=== PATIENT | female | born 1960 | race Caucasian/White ===

== ENCOUNTER 2019-07-06 01:00 | Inpatient (IN) | payer OTHER ==
--- NOTE | 2019-07-06 01:39 | PDOC ---
History of Present Illness - General Chief Complaint: Back Pain Stated Complaint: BACK PAIN Time Seen by Provider: 07/06/19 01:31 Past History - Past Medical History Allergies/Adverse Reactions: Allergies Allergy/AdvReac Type Severity Reaction Status Date / Time No Known Allergies Allergy Verified 07/06/19 01:31 Home Medications: Ambulatory Orders FENTANYL 12mcg PATCH [DURAGESIC 12mcg PATCH -] 1 each TD Q72H 07/06/19 Oxycodone HCl/Acetaminophen [Oxycodone-Acetaminophen 10-325] 1 each PO Q6H PRN 07/06/19 - Suicide/Smoking/Psychosocial Hx Smoking History: Never smoked Information on smoking cessation initiated: No Hx Alcohol Use: No Drug/Substance Use Hx: No *Physical Exam - Vital Signs Last Vital Signs Temp Pulse Resp BP Pulse Ox 98.2 F 90 19 140/78 99 07/06/19 01:00 07/06/19 01:00 07/06/19 01:00 07/06/19 01:00 07/06/19 01:00 ED Treatment Course - LABORATORY CBC & Chemistry Diagram: 07/07/19 08:10 07/07/19 08:10 Medical Decision Making - Medical Decision Making HPI: 58yo F with PMH of chronic lower back pain s/p L4-L5 spinal fusion presenting with L. flank pain. The pain started on Wednesday and worsened acutely about two hours ago. It starts in her R. flank and radiates to her RLQ, down to her groin , and down to her upper leg. and She states it feels "sharp" and is rated >10 out of 10. Endorses nausea and 4-5 episodes of nonbloody bilious emesis. Has never had pain like this before. Denies history of kidney stone. This pain does not feel like her usual back pain. She follows with a pain management physician who prescribes her oxycodone and fentanyl patches. She last took oxycodone around 6pm which did not relieve her pain. Had a cholecystectomy at age 17. Denies urinary symptoms. No fevers, chills, chest pain, or shortness of breath. PCP: Dr. Robert Lebron ROS: Constitutional: no fever, no chills HEENT: no throat pain, no dysphagia Cardiovascular: no chest pain, no palpitations Respiratory: no cough, no shortness of breath Gastrointestinal: +nausea, +vomiting Genitourinary: no dysuria, no hematuria Musculoskeletal: +back pain, no leg pain Skin: no rash, no itching Neurologic: no headache, no weakness PE: General: Awake, alert, and fully oriented, writhing in pain Head: No signs of trauma Eyes: EOMI, sclera anicteric ENT: Dry mucus membranes Neck: Normal ROM, supple Lungs: Lungs clear, Normal breath sounds Cardio: Regular rhythm, S1 and S2 present Abdomen: Soft, tender to palpation in RLQ. No guarding, no rebound, no masses. + L. CVA tenderness, no R. CVA tenderness Extremities: Normal range of motion, Distal pulses present SKIN: Warm, Dry, normal turgor Neurologic: Cranial nerves II through XII grossly intact. Normal speech ED Course/MDM: DDX including but not limited to nephrolithiasis, UTI, pyelonephritis, appendicitis, ovarian cyst Labs, EKG CTAP with IV contrast Toradol, Fluids, Zofran 07/06/19 01:39 CBC WBC 15.0 K/mm3 (4.0-10.0) H 07/06/19 02:50 RBC 4.80 M/mm3 (3.60-5.2) 07/06/19 02:50 Hgb 14.9 GM/dL (10.7-15.3) 07/06/19 02:50 Hct 45.2 % (32.4-45.2) 07/06/19 02:50 MCV 94.2 fl (80-96) 07/06/19 02:50 MCH 31.0 pg (25.7-33.7) 07/06/19 02:50 MCHC 32.9 g/dl (32.0-36.0) 07/06/19 02:50 RDW 13.0 % (11.6-15.6) 07/06/19 02:50 Plt Count 407 K/MM3 (134-434) 07/06/19 02:50 MPV 8.9 fl (7.5-11.1) 07/06/19 02:50 Absolute Neuts (auto) 12.9 K/mm3 (1.5-8.0) H 07/06/19 02:50 Neutrophils % 85.8 % (42.8-82.8) H 07/06/19 02:50 Lymphocytes % 10.8 % (8-40) 07/06/19 02:50 Monocytes % 2.8 % (3.8-10.2) L 07/06/19 02:50 Eosinophils % 0.0 % (0-4.5) 07/06/19 02:50 Basophils % 0.6 % (0-2.0) 07/06/19 02:50 Nucleated RBC % 0 % (0-0) 07/06/19 02:50 Leukocytosis UA with 3+ blood, 2+ ketones, 2+ protein, 3+ glucose, trace LE, 17 WBC, 6.1 epithelials, bacteria 50.5 Pending chemistry 07/06/19 03:56 CMP Sodium 139 mmol/L (136-145) 07/06/19 02:50 Potassium 4.3 mmol/L (3.5-5.1) 07/06/19 02:50 Chloride 99 mmol/L (98-107) 07/06/19 02:50 Carbon Dioxide 26 mmol/L (21-32) 07/06/19 02:50 Anion Gap 14 MMOL/L (8-16) 07/06/19 02:50 BUN 11.2 mg/dL (7-18) 07/06/19 02:50 Creatinine 1.0 mg/dL (0.55-1.3) 07/06/19 02:50 Est GFR (CKD-EPI)AfAm 72.42 07/06/19 02:50 Est GFR (CKD-EPI)NonAf 62.49 07/06/19 02:50 Random Glucose 302 mg/dL (74-106) H* 07/06/19 02:50 Calcium 10.0 mg/dL (8.5-10.1) 07/06/19 02:50 Total Bilirubin 1.9 mg/dL (0.2-1) H 07/06/19 02:50 AST 28 U/L (15-37) 07/06/19 02:50 ALT 41 U/L (13-61) 07/06/19 02:50 Alkaline Phosphatase 97 U/L (45-117) 07/06/19 02:50 Total Protein 8.6 g/dl (6.4-8.2) H 07/06/19 02:50 Albumin 4.2 g/dl (3.4-5.0) 07/06/19 02:50 Electrolytes unremarkable Normal Cr No transaminitis Hyperglycemia: Patient states she used to have diabetes and had taken januvia and metformin in the past. Was taken off these meds six months ago 07/06/19 04:38 CT changed to without contrast to better visualize potential stone: CT with 1.1cm stone, as read by radiology: "1.1 cm stone proximal right ureter causing minimal hydronephrosis. Small nonobstructing stone left kidney Unremarkable pancreas and gallbladder. No bowel obstruction, colitis, free fluid or free air. Normal appendix. Spinal cord stimulator device in right flank, electrode tip in mid thoracic spinal canal. Surgical changes lumbar spine" Stone unlikely to pass on its own. Plan for admission Will cover with rocephin given bacteriuria 07/06/19 05:[address] Fisher who accepted patient for admission under the day team attending physician. They will microblog with the attending's name. 07/06/19 06:06 EKG: rate 76, QTc 445, NSR with sinus arrhythmia *DC/Admit/Observation/Transfer Diagnosis at time of Disposition: Nephrolithiasis - Discharge Dispostion Condition at time of disposition: Guarded Decision to Admit order: Yes - Referrals - Patient Instructions - Post Discharge Activity
[2019-07-06] MEDS ORDERED: SODIUM CHLORIDE 1,000 ML IV STA (02:09)
[2019-07-06] MEDS ORDERED: KETOROLAC TROMETHAMINE 30 MG/1 ML VIAL IVPUSH ONE (02:09)
[2019-07-06] MEDS ORDERED: ONDANSETRON 4 MG/2 ML VIAL IVPUSH ONE (02:09)
--- NOTE | 2019-07-06 02:11 | PDOC ---
Attending Attestation - Resident Resident Name: Yoselyn Javier - ED Attending Attestation I have performed the following: I have examined & evaluated the patient, The case was reviewed & discussed with the resident, I agree w/resident's findings & plan - HPI HPI: 07/06/19 05:17 see resident hpi - Physicial Exam PE: 07/06/19 05:17 agree with resident hpi - Medical Decision Making 07/06/19 05:17 58-year-old female with right flank pain radiating into the right lower quadrant CT scan reveals a 1.1 cm right ureteral stone with mild hydronephrosis Due to stone size, elevated white blood cell count, bacteriuria and history of diabetes patient will be admitted to medical service for pain management IV fluids and further evaluation
[2019-07-06] MEDS ORDERED: KETOROLAC TROMETHAMINE 30 MG/1 ML VIAL ONE (02:29)
[2019-07-06] MEDS ORDERED: ONDANSETRON 4 MG/2 ML VIAL ONE (02:29)
[2019-07-06 03:01] LABS: BASO % 0.6 % (0-2.0); HEMOGLOBIN 14.9 GM/dL (10.7-15.3); MONO % 2.8 % (3.8-10.2)
[2019-07-06 03:14] LABS: INR 1.11 (0.83-1.09); PROTHROMBIN TIME (PATIENT) 13.1 SEC (9.7-13.0)
[2019-07-06 03:17] LABS: HEMATOCRIT 45.2 % (32.4-45.2); LYMPH % 10.8 % (8-40); MCHC 32.9 g/dl (32.0-36.0); MEAN CELL VOLUME 94.2 fl (80-96); MEAN PLT VOLUME 8.9 fl (7.5-11.1); NEUT % 85.8 % (42.8-82.8); PLATELET COUNT 407 K/MM3 (134-434)
[2019-07-06] MEDS ORDERED: morphine CARPU-JECT 4 MG/1 ML DISP.SYRIN IVPUSH ONE (03:29)
[2019-07-06] MEDS ORDERED: morphine SULFATE 4 MG/ML VIAL ONE (03:40)
[2019-07-06 03:42] LABS: EPI CELLS 6.1 /HPF (0-5/HPF); HYALINE CASTS 4 /lpf (0-8); URINE APPEARANCE CLOUDY; URINE BACTERIA 50.5 /hpf (NEGATIVE); URINE BILIRUBIN NEGATIVE (NEGATIVE); URINE COLOR DK YELLOW; URINE GLUCOSE (UA) 3+ (NEGATIVE); URINE KETONE 2+ (NEGATIVE); URINE LEUK ESTERASE TRACE (NEGATIVE); URINE NITRITE NEGATIVE (NEGATIVE); URINE PROTEIN 2+ (NEGATIVE); URINE RBC 119 /hpf (0-4); URINE WBC 17 /hpf (0-5)
[2019-07-06 04:07] LABS: ALBUMIN 4.2 g/dl (3.4-5.0); BILIRUBIN,TOTAL 1.9 mg/dL (0.2-1); BLOOD UREA NITROGEN 11.2 mg/dL (7-18); POTASSIUM 4.3 mmol/L (3.5-5.1); TOT PROT 8.6 g/dl (6.4-8.2)
[2019-07-06] MEDS ORDERED: CEFTRIAXONE 1,000 MG in DEXTROSE 5%-WATER - 50 ML IVPB ONE (05:24)
[2019-07-06] MEDS ORDERED: cefTRIAXone SODIUM 1 GM VIAL ONE (05:48)
--- NOTE | 2019-07-06 08:00 | HP ---
CHIEF COMPLAINT: R Flank pain PCP: Dr. Lebron HISTORY OF PRESENT ILLNESS: 58 y/o F with PMHx of NIDDM, Chronic lumbar spine pain s/p L4-S1 spinal fusion and spine stimulator placement presents with R Flank pain. Patient was in her usual state of health on Wednesday. Wednesday during the day, patient began to experience multiple loose bowel movements without any associated abdominal pain or blood. Wednesday, patient woke with sudden onset R Flank pain accompanied by 3-4 episodes of Billious, non bloody vomiting. She initially thought this pain was due to her chronic back issues however at midnight, she had a sudden increase in pain prompting her to visit the ED. She describes the pain as 10/10 , sharp and stabbing over the R Flank, that waxes and wanes and radiates to her her RLQ and Right groin. She has tried Tylenol and her home dose oxycodone (10/ 325) which provided minimal relief. Her pain has improved with heating pad however. Denies any associated fevers, chills, dysuria, hematuria. This is the 1st time she has felt this intense pain and denies any hx of nephrolithiasis. Since arrival in the ED, patient has vomited twice, Billious and nonbloody. Durring my interview, patient was not feeling nausea. Her Last BM was yesterday consisting of diarrhea which has since resolved. The last meal she tolerated was wednesday evening. ER course was notable for: (1) NS 1L Bolus (2) Toradol, Morphine, Zofran, Ceftriaxone (3) CT A/P Recent Travel: Denies PAST MEDICAL HISTORY: As above PAST SURGICAL HISTORY: CCY, L4-S1 spinal fusion, R Total knee replacement x2, x3 Social History: Smoking: Denies Alcohol: Denies Drugs: Denies Occupation: Disabled Ambulation: Has been prescribed a Cane and walker but uses it PRN Residence: Home with family Family History: Mother with COPD, DM, Hyperthyroidism Father with Heart disease, DM, HLD Paternal FHx with Colon Ca Allergies No Known Allergies Allergy (Verified 07/06/19 01:31) HOME MEDICATIONS: Home Medications Medication Instructions Recorded FENTANYL 12mcg PATCH [DURAGESIC 1 each TD Q72H 07/06/19 12mcg PATCH -] Oxycodone HCl/Acetaminophen 1 each PO Q6H PRN 07/06/19 [Oxycodone-Acetaminophen 10325] REVIEW OF SYSTEMS As per HPI PHYSICAL EXAMINATION Vital Signs - 24 hr 07/06/19 07/06/19 07/06/19 01:00 05:48 06:51 Temperature 98.2 F 98.8 F Pulse Rate 90 Pulse Rate [ 65 Right Radial] Respiratory 19 18 Rate Blood Pressure 140/78 Blood Pressure 104/53 L [Left Arm] O2 Sat by Pulse 99 93 L 93 L Oximetry (%) GENERAL: A&Ox3, NAD HEAD: NCAT EYES: PERRL, EOMI EARS, NOSE, THROAT: Dry mucous membranes. NECK: Supple, No JVD LUNGS: CTAB. No wheezes, No crackles. HEART: Regular rate and rhythm, normal S1 and S2 without murmur ABDOMEN: Obese, Soft, RLQ tender to palpation, not distended, + bowel sounds, no guarding, no rebound MUSCULOSKELETAL: Right CVA tenderness, + Right Lloyds punch BACK: Spinal Stimulator felt at Right Lower lumbar spine EXTREMITIES: 2+ pulses, No peripheral edema. NEUROLOGICAL: Cranial nerves II-XII intact. Normal speech. Gross sensation intact throughout. 5/5 muscle strength throughout. SKIN: Warm, dry Laboratory Results - last 24 hr 07/06/19 07/06/19 07/06/19 02:50 02:50 02:50 WBC 15.0 H RBC 4.80 Hgb 14.9 Hct 45.2 MCV 94.2 MCH 31.0 MCHC 32.9 RDW 13.0 Plt Count 407 MPV 8.9 Absolute Neuts (auto) 12.9 H Neutrophils % 85.8 H Lymphocytes % 10.8 Monocytes % 2.8 L Eosinophils % 0.0 Basophils % 0.6 Nucleated RBC % 0 PT with INR 13.10 H INR 1.11 H Sodium 139 Potassium 4.3 Chloride 99 Carbon Dioxide 26 Anion Gap 14 BUN 11.2 Creatinine 1.0 Est GFR (CKD-EPI)AfAm 72.42 Est GFR (CKD-EPI)NonAf 62.49 Random Glucose 302 H* Calcium 10.0 Total Bilirubin 1.9 H AST 28 ALT 41 Alkaline Phosphatase 97 Total Protein 8.6 H Albumin 4.2 Urine Color Urine Appearance Urine pH Ur Specific [place] Urine Protein Urine Glucose (UA) Urine Ketones Urine Blood Urine Nitrite Urine Bilirubin Urine Urobilinogen Ur Leukocyte Esterase Urine WBC (Auto) Urine RBC (Auto) Urine Casts (Auto) U Pathogenic Cast Auto U Epithel Cells (Auto) U Sm Round Cell (Auto) Urine Crystals (Auto) Urine Bacteria (Auto) Urine Yeast (Auto) 07/06/19 07/06/19 02:50 03:05 WBC RBC Hgb Hct MCV MCH MCHC RDW Plt Count MPV Absolute Neuts (auto) Neutrophils % Lymphocytes % Monocytes % Eosinophils % Basophils % Nucleated RBC % PT with INR INR Sodium Potassium Chloride Carbon Dioxide Anion Gap BUN Creatinine Est GFR (CKD-EPI)AfAm Est GFR (CKD-EPI)NonAf Random Glucose Calcium Total Bilirubin AST ALT Alkaline Phosphatase Total Protein Albumin Urine Color Cancelled Dk yellow Urine Appearance Cancelled Cloudy Urine pH Cancelled 5.0 Ur Specific [place] Cancelled 1.037 H Urine Protein Cancelled 2+ H Urine Glucose (UA) Cancelled 3+ H Urine Ketones Cancelled 2+ H Urine Blood Cancelled 3+ H Urine Nitrite Cancelled Negative Urine Bilirubin Cancelled Negative Urine Urobilinogen Cancelled 1.0 Ur Leukocyte Esterase Cancelled Trace Urine WBC (Auto) Cancelled 17 Urine RBC (Auto) Cancelled 119 Urine Casts (Auto) Cancelled 4 U Pathogenic Cast Auto Cancelled U Epithel Cells (Auto) Cancelled 6.1 U Sm Round Cell (Auto) Cancelled Urine Crystals (Auto) Cancelled Urine Bacteria (Auto) Cancelled 50.5 Urine Yeast (Auto) Cancelled Active Medications Potassium Chloride/Sodium Chloride (Ns+20 Meq Kcl -) 20 meq in 1,000 mls @ 1, 000 mls/hr IV ASDIR STA Stop: 07/06/19 09:24 Ceftriaxone Sodium 1 gm/ (Dextrose) 100 mls @ 200 mls/hr IVPB DAILY EDUARDO; Protocol Sodium Chloride (Normal Saline -) 1,000 mls @ 100 mls/hr IV ASDIR EDUARDO Insulin Aspart (Novolog Vial Sliding Scale -) 1 vial SQ Q6H EDUARDO; Protocol Insulin Detemir (Levemir Vial) 5 units SQ ONCE ONE Stop: 07/06/19 08:49 Morphine Sulfate (Morphine Sulfate) 2 mg IVPUSH Q4H PRN PRN Reason: PAIN LEVEL 7 - 10 Ondansetron HCl (Zofran Injection) 4 mg IVPUSH Q8H PRN PRN Reason: NAUSEA ASSESSMENT/PLAN: 58 y/o F with PMHx of NIDDM, Chronic lumbar spine pain s/p L4-S1 spinal fusion and spine stimulator placement presents with R Flank pain. #Right Flank pain -Due to Right renal obstructive uropathy seen on CT concerning for Complicated Pylonephritis (Leukocytosis, UA positive for UTI) -Afebrile, Hemodynamically stable, Cr 1.0 -Urine Cx pending -Continue Ceftriaxone 1g (ABx course started on 07/06) -Pain control via IV Acetaminophen, Morphine -IV Hydration via NS -Tamsulosin -Urology (Dr. Crockett) Consulted for possible intervention -Strain Urine -Monitor Urine output, Cr -Antiemesis via Ondansetron -Counselled on increasing fluid intake, limiting sodium intake #Mild DKA, Resolved -BG 302, anion gap 14, Neurologically intact, No kussmauls breathing, No hx of polyuria/polydipsia -On repeat Labs, AG closed, Normal Bicarb, BG remains elevated -Give Levemir 5 u x 1 -ISS BGMs Q6H -Check A1c -Continue IV hydration #Leukocytosis -Likely reactive due to UTI and Obstruction -Continue ABx for UTI -Monitor for signs of infection #FEN -NS @ 100 mls/hr -Lytes WNL, Replete PRN -NPO #PPx -DVT: SCDs; Hold chemical AC for possible Urologic procedure Dispo: Admit to Med-Surg Visit type - Emergency Visit Emergency Visit: Yes ED Registration Date: 07/06/19 Care time: The patient presented to the Emergency Department on the above date and was hospitalized for further evaluation of their emergent condition. - New Patient This patient is new to me today: Yes Date on this admission: 07/07/19 - Critical Care Critical Care patient: No ATTENDING PHYSICIAN STATEMENT I saw and evaluated the patient. I reviewed the resident's note and discussed the case with the resident. I agree with the resident's findings and plan as documented. SUBJECTIVE: OBJECTIVE: ASSESSMENT AND PLAN:
[2019-07-06] MEDS ORDERED: SODIUM CHLORIDE 0.9%/KCL 20 MEQ/1,000 ML INFUS.BAG IV STA (08:25)
[2019-07-06] MEDS ORDERED: ONDANSETRON 4 MG/2 ML VIAL IVPUSH PRN ×2 (08:26→14:55)
[2019-07-06 08:28] LABS: BLOOD UREA NITROGEN 12.6 mg/dL (7-18); CREATININE 1.1 mg/dL (0.55-1.3)
[2019-07-06 08:39] LABS: BASO % 0.3 % (0-2.0); HEMATOCRIT 37.3 % (32.4-45.2); HEMOGLOBIN 12.5 GM/dL (10.7-15.3); LYMPH % 20.8 % (8-40); MCH 31.4 pg (25.7-33.7); MCHC 33.5 g/dl (32.0-36.0); MEAN CELL VOLUME 93.8 fl (80-96); NEUT % 73.9 % (42.8-82.8); PLATELET COUNT 300 K/MM3 (134-434); RBC 3.98 M/mm3 (3.60-5.2); RDW 12.6 % (11.6-15.6); WHITE BLOOD COUNT 13.4 K/mm3 (4.0-10.0)
[2019-07-06 08:44] LABS: MAGNESIUM 1.6 mg/dL (1.8-2.4)
--- NOTE | 2019-07-06 08:54 | PN ---
Teaching Attending Note Name of Resident: Hannah Patel ATTENDING PHYSICIAN STATEMENT I saw and evaluated the patient. I reviewed the resident's note and discussed the case with the resident. I agree with the resident's findings and plan as documented. SUBJECTIVE: CC: R flank and abd pain HPI: 58 y/o lady with remote h/o DM II, chronic back pain, CCY, L spine fusion who presented with R flank and abdominal pain. 3 days ago she started having non bloody diarrhea, then non bloody , but bilious vomiting. She developed R sided abd pain and flank pain , then pain was severe last night and brought her here. She denies any dysuria, or fever. She reports urgency and not being able to make it to bathroom. complains of being dry and feeling thirsty. regarding her DM, few years ago she was diagnosed with DM II, then she lost weight and was told she did nto have it. In Er, she was found to have an obstructing nephrolithiasis and mild hydro and UTI and elevated sugar. she was given IVf adn Abx she feels better now, but her pain is coming back. OBJECTIVE: NAD, awake , alert oriented x 3 HEAENT: MMM, no facial droop. EOMI. no LAP inneck CV: RRR, no MRG Lungs: CTAB ABd: soft, TTP in RLQ, and RUQ, + R CVA tenderness. No rebound tenderness . nl BS Ext : No edema or erythema Neuro: EOMI, round equal pupils , reactive to light , no facial droop. tongue and uvula at mid line. strength 5/5 in upper and lwoer extremities proximally and distally. sensation to light touch NL. ASSESSMENT AND PLAN: 58 y/o lady with remote h/o DM II, chronic back pain, CCY, L spine fusion who presented with R flank and abdominal pain.she was found to have an obstructing nephrolithiasis and UTI. 1- R obstructing uretheral stone with complicated UTI/pyelonephritis . no sepsis. hemodynamically stable. - cont ceftriaxone daiy - follow urine cx. - spoke to Uro in a consult to relief obstruction in setting of UTI - give IVF , bolus then maintenance - start flomax - NPO except meds - morphien for pain 2- DM , with hyperglycemia : - repat labs shows decrease in AG to q12, sugar has improved, normal bicarb. NO DKA at this time - give 5 of levemir - SSI q 6h while NPO - check A1c 3- chronic back pain: cont fentanyl patch - morphine for now dispo: MEd surg. HLOC
[2019-07-06] MEDS: MORPHINE SULFATE 2 MG/ML VIAL IVPUSH PRN (09:34)
[2019-07-06] MEDS: SODIUM CHLORIDE 1,000 ML IV SCH (09:36)
[2019-07-06] MEDS ORDERED: MAGNESIUM SULF 50% (8.12 MEQ/2 ML-1 GM VIAL) IVPB ONE (09:45)
[2019-07-06] MEDS ORDERED: INSULIN (LEVEMIR) 100 UNITS/ML UNITS SQ ONE (09:45)
[2019-07-06] MEDS: TAMSULOSIN HCL 0.4 MG CAP PO SCH (10:48)
[2019-07-06 11:45] VITALS: BMI 43.4
[2019-07-06] MEDS ORDERED: PNEUMOC 13-VAL CONJ-DIP CRM/PF 0.5 ML DISP.SYRIN IM ONE (11:45)
--- NOTE | 2019-07-06 12:25 | EKG ---
Test Reason : Blood Pressure : / mmHG Vent. Rate : 076 BPM Atrial Rate : 076 BPM P-R Int : 164 ms QRS Dur : 078 ms QT Int : 396 ms P-R-T Axes : 003 004 013 degrees QTc Int : 445 ms NORMAL SINUS RHYTHM WITH SINUS ARRHYTHMIA POSSIBLE INFERIOR INFARCT , AGE UNDETERMINED ABNORMAL ECG NO PREVIOUS ECGS AVAILABLE Confirmed by FRANNIE BRANDON MD ([id number]) on 07/06/2019 12:24:53 PM Referred By: Confirmed By:FRANNIE BRANDON MD
[2019-07-06] MEDS: INSULIN SLIDING SCALE (NOVOLOG) 1 VIAL SQ SCH ×3 (12:27→22:00)
[2019-07-06] MEDS ORDERED: PNEUMOCOCCAL 23 VACCINE 0.5 ML VIAL IM ONE (13:00)
[2019-07-06] MEDS ORDERED: MIDAZOLAM HCL 2 MG/2 ML SINGLE DOSE VIAL ONE (13:34)
[2019-07-06] MEDS ORDERED: PROPOFOL 20 ML ONE ×2 (13:34)
[2019-07-06] MEDS ORDERED: LIDOCAINE HCL/PF 2% SDV 5ML VIAL ONE (13:35)
[2019-07-06] MEDS ORDERED: ceFAZolin SODIUM 1 GM VIAL IVPB ONE ×2 (14:05→14:06)
[2019-07-06] MEDS ORDERED: ACETAMINOPHEN 1000 MG/100 ML VIAL (NON FORMULARY) IVPB ONE ×2 (14:56→15:00)
[2019-07-06] MEDS ORDERED: ACETAMINOPHEN INJECTION 100 ML IVPB ONE (15:07)
--- NOTE | 2019-07-06 17:20 | OP ---
DATE OF OPERATION: 07/06/2019 PREOPERATIVE DIAGNOSIS: Right ureteropelvic junction stone, right hydronephrosis, right renal colic. PROCEDURE: Cystoscopy, retrograde pyelogram, right ureteral stent placement. SURGEON: Sal Moya MD ANESTHESIA: General. FINDINGS: Right hydronephrosis and right upper ureteral UPJ stone. DRAINS: A 6 x 24 double-J ureteral stent on the right. ESTIMATED BLOOD LOSS: None. PREOPERATIVE INDICATIONS: The patient is a 58-year-old woman who comes in with severe right-sided flank pain. CT scan reveals a 1.1-cm right UPJ stone with hydronephrosis. No evidence of urosepsis. She comes to the OR today for stent placement. DESCRIPTION OF PROCEDURE: Patient was brought to the OR, placed on the table in supine position, given general anesthesia and IV antibiotics and placed in the modified lithotomy position. The groin was prepped and draped sterilely. Cystoscopy was performed. The bladder itself was unremarkable. The right UO was visualized. The wire was passed up into the right kidney, over which the open-ended catheter was placed. Retrograde pyelogram was performed which revealed right hydronephrosis. Over the wire a 6 x 24 double-J ureteral stent was placed with 1 loop in the renal pelvis and 1 loop in the bladder. While there was no purulence, there was some cloudy urine which was seen emerging from the stent. Bladder was emptied. The patient was woken up. SAL MOYA M.D. [id number]
[2019-07-06] MEDS ORDERED: INSULIN (NOVOLOG) ASPART 100 UNITS/ML 10ML VIAL ONE (17:26)
[2019-07-06] MEDS: LACTATED RINGERS SOLUTION 1,000 ML IV SCH (17:36)
[2019-07-07] MEDS: SODIUM CHLORIDE 1,000 ML IV SCH ×2 (02:50→10:52)
[2019-07-07] MEDS: INSULIN SLIDING SCALE (NOVOLOG) 1 VIAL SQ SCH ×4 (03:06→22:08)
[2019-07-07] MEDS: TAMSULOSIN HCL 0.4 MG CAP PO SCH (07:57)
[2019-07-07 09:32] LABS: BASO % 0.5 % (0-2.0); EOS % 2.4 % (0-4.5); HEMATOCRIT 36.2 % (32.4-45.2); HEMOGLOBIN 11.9 GM/dL (10.7-15.3); LYMPH % 32.1 % (8-40); MCH 31.4 pg (25.7-33.7); MEAN PLT VOLUME 8.2 fl (7.5-11.1); MONO % 6.1 % (3.8-10.2); NEUT % 58.9 % (42.8-82.8); PLATELET COUNT 272 K/MM3 (134-434); RDW 12.8 % (11.6-15.6); WHITE BLOOD COUNT 9.3 K/mm3 (4.0-10.0)
[2019-07-07 10:00] LABS: BILIRUBIN,TOTAL 1.8 mg/dL (0.2-1); BLOOD UREA NITROGEN 7.5 mg/dL (7-18); CALCIUM 8.7 mg/dL (8.5-10.1); CREATININE 0.7 mg/dL (0.55-1.3); MAGNESIUM 2.1 mg/dL (1.8-2.4); PHOSPHOROUS 2.5 mg/dL (2.5-4.9); TOT PROT 6.3 g/dl (6.4-8.2)
[2019-07-07] MEDS ORDERED: cefTRIAXone SODIUM 1 GM VIAL ONE (10:26)
[2019-07-07] MEDS ORDERED: DEXTROSE 5%-WATER - 50 ML IVPB ONE (10:26)
[2019-07-07] MEDS: CEFTRIAXONE 1 GM in DEXTROSE 5%-WATER - 50 ML IVPB SCH (10:28)
[2019-07-07] MEDS: MORPHINE SULFATE 2 MG/ML VIAL IVPUSH PRN (10:52)
[2019-07-07] MEDS ORDERED: INSULIN (NOVOLOG) ASPART 100 UNITS/ML 10ML VIAL ONE (11:18)
[2019-07-07] MEDS: LACTATED RINGERS SOLUTION 1,000 ML IV SCH (16:01)
[2019-07-07] MEDS ORDERED: IBUPROFEN 400 MG TABLET (FP) PO PRN (17:55)
[2019-07-07] MEDS ORDERED: ACETAMINOPHEN 325 MG TABLET (FP) PO PRN (17:55)
--- NOTE | 2019-07-07 17:55 | PN ---
Teaching Attending Note Name of Resident: Soraya Bentley ATTENDING PHYSICIAN STATEMENT I saw and evaluated the patient. I reviewed the resident's note and discussed the case with the resident. I agree with the resident's findings and plan as documented. SUBJECTIVE: no fever or chills. had 6 episdoes of diarrhea this afternoon. no abd pain. R flank pain is better OBJECTIVE: NAD, awake , alert oriented x 3 HEENT: MMM CV: RRR, no MRG Lungs: CTAB ABd: soft, TTP in RLQ, + R CVA tenderness ( minimal ) . No rebound tenderness . nl BS Ext: No edema or erythema ASSESSMENT AND PLAN: 58 y/o lady with remote h/o DM II, chronic back pain, CCY, L spine fusion who presented with R flank and abdominal pain.she was found to have an obstructing nephrolithiasis and UTI. 1- R obstructing uretheral stone with complicated UTI/pyelonephritis. s/p R ureteral stent placement. - urine cx neg but urine was dirty and thick fluid came out with stent placement . will treat for UTI despite neg urine cx - cont ceftriaxone day 2 - cont flomax - IVF - dc morphine , add tylenol and oxycodone - send c diff for diarrhea. cont IVf 2- h/o DM II, with hyperglycemia: liley due to infection. - A1c is low. but due to severe hyper glycemia, will dc onmetformin - hold off long acting insulin and cont SSI while here 3- Chronic back pain: cont fentanyl patch, resume oxy Dispo: HLOC due to 6 episodes of diarrhea today
[2019-07-07] MEDS ORDERED: FENTANYL PATCH WASTE TD PRN (18:07)
--- NOTE | 2019-07-07 18:09 | PN ---
Physical Exam: SUBJECTIVE: Patient seen and examined OBJECTIVE: Vital Signs Period Temp Pulse Resp BP Sys/Thornton Pulse Ox Last 24 Hr 98.2 F-98.4 F 67-71 18-20 119-122/58-72 95-98 GENERAL: The patient is awake, alert, and fully oriented, in no acute distress. HEAD: Normal with no signs of trauma. EYES: PERRL, extraocular movements intact, sclera anicteric, conjunctiva clear. No ptosis. ENT: Ears normal, nares patent, oropharynx clear without exudates, moist mucous membranes. NECK: Trachea midline, full range of motion, supple. LUNGS: Breath sounds equal, clear to auscultation bilaterally, no wheezes, no crackles, no accessory muscle use. HEART: Regular rate and rhythm, S1, S2 without murmur, rub or gallop. ABDOMEN: Soft, nontender, nondistended, normoactive bowel sounds, no guarding, no rebound, no hepatosplenomegaly, no masses. EXTREMITIES: 2+ pulses, warm, well-perfused, no edema. NEUROLOGICAL: Cranial nerves II through XII grossly intact. Normal speech, gait not observed. PSYCH: Normal mood, normal affect. SKIN: Warm, dry, normal turgor, no rashes or lesions noted Laboratory Results - last 24 hr 07/06/19 07/07/19 07/07/19 21:16 03:04 08:10 WBC 9.3 RBC 3.80 Hgb 11.9 Hct 36.2 MCV 95.0 MCH 31.4 MCHC 33.0 RDW 12.8 Plt Count 272 MPV 8.2 Absolute Neuts (auto) 5.5 Neutrophils % 58.9 D Lymphocytes % 32.1 D Monocytes % 6.1 Eosinophils % 2.4 D Basophils % 0.5 Nucleated RBC % 0 Sodium Potassium Chloride Carbon Dioxide Anion Gap BUN Creatinine Est GFR (CKD-EPI)AfAm Est GFR (CKD-EPI)NonAf POC Glucometer 197 158 Random Glucose Calcium Phosphorus Magnesium Total Bilirubin AST ALT Alkaline Phosphatase Total Protein Albumin 07/07/19 07/07/19 07/07/19 08:10 11:14 15:52 WBC RBC Hgb Hct MCV MCH MCHC RDW Plt Count MPV Absolute Neuts (auto) Neutrophils % Lymphocytes % Monocytes % Eosinophils % Basophils % Nucleated RBC % Sodium 143 Potassium 4.0 Chloride 112 H Carbon Dioxide 27 Anion Gap 5 L BUN 7.5 Creatinine 0.7 Est GFR (CKD-EPI)AfAm 111.47 Est GFR (CKD-EPI)NonAf 96.18 POC Glucometer 247 247 Random Glucose 180 H Calcium 8.7 Phosphorus 2.5 Magnesium 2.1 Total Bilirubin 1.8 H AST 13 L ALT 25 Alkaline Phosphatase 70 Total Protein 6.3 L Albumin 3.0 L Active Medications Generic Name Dose Route Start Last Admin Trade Name Freq PRN Reason Stop Dose Admin Acetaminophen 650 mg 07/07/19 17:55 Tylenol - PO Q6H PRN PAIN LEVEL 1-5 Ceftriaxone Sodium 1 gm/ 50 mls @ 100 mls/hr 07/07/19 10:00 07/07/19 10:28 Dextrose IVPB 100 mls/hr DAILY EDUARDO Administration Protocol Sodium Chloride 1,000 mls @ 100 mls/hr 07/06/19 08:45 07/07/19 10:52 Normal Saline - IV 100 mls/hr ASDIR EDUARDO Administration Lactated Ringer's 1,000 mls @ 125 mls/hr 07/06/19 15:00 07/07/19 16:01 Lactated Ringers Solution IV Not Given ASDIR EDUARDO Ibuprofen 400 mg 07/07/19 17:55 Motrin - PO Q6H PRN PAIN LEVEL 6-10 Insulin Aspart 1 vial 07/06/19 09:00 07/07/19 16:01 Novolog Vial Sliding Scale - SQ 4 unit Q6H EDUARDO Administration Protocol Ondansetron HCl 4 mg 07/06/19 08:26 07/06/19 10:49 Zofran Injection IVPUSH 4 mg Q8H PRN Administration NAUSEA Ondansetron HCl 4 mg 07/06/19 14:55 Zofran Injection IVPUSH Q6H PRN NAUSEA AND/OR VOMITING Tamsulosin HCl 0.8 mg 07/06/19 08:30 07/07/19 07:57 Flomax - PO 0.8 mg DAILY@0830 [facility] Administration ASSESSMENT/PLAN: 58 y/o lady with remote h/o DM II, chronic back pain, CCY, L spine fusion who presented with R flank and abdominal pain.she was found to have an obstructing nephrolithiasis and UTI. R obstructing uretheral stone with complicated UTI/pyelonephritis s/p R ureteral stent placement. urine cx neg but thick yellow fluid came out with stent placement so will cont ceftriaxone despite neg urine cx cont flomax IVF d/c morphine , add tylenol adn ibuprofen 6 diarrea episode will r/o c diff Hyperglycemia . A1c is low, but severe hyperglycemia, will d/c on metformin 500mg BID hold off long acting insulin and cont SSI while here Chronic back pain: cont fentanyl patch Visit type - Emergency Visit Emergency Visit: Yes ED Registration Date: 07/06/19 Care time: The patient presented to the Emergency Department on the above date and was hospitalized for further evaluation of their emergent condition. - New Patient This patient is new to me today: Yes Date on this admission: 07/07/19 - Critical Care Critical Care patient: No - Discharge Referral Referred to [facility] Med [facility].C[facility] No ATTENDING PHYSICIAN STATEMENT I saw and evaluated the patient. I reviewed the resident's note and discussed the case with the resident. I agree with the resident's findings and plan as documented. SUBJECTIVE: OBJECTIVE: ASSESSMENT AND PLAN:
[2019-07-08] MEDS: oxyCODONE HCL 5 MG TABLET PO PRN ×2 (04:27→10:41)
[2019-07-08] MEDS: INSULIN SLIDING SCALE (NOVOLOG) 1 VIAL SQ SCH ×2 (04:31→10:43)
[2019-07-08 08:09] LABS: BASO % 0.5 % (0-2.0); EOS % 3.7 % (0-4.5); HEMOGLOBIN 11.7 GM/dL (10.7-15.3); LYMPH % 39.2 % (8-40); MCH 31.8 pg (25.7-33.7); MCHC 33.5 g/dl (32.0-36.0); MEAN CELL VOLUME 94.8 fl (80-96); MEAN PLT VOLUME 8.1 fl (7.5-11.1); NEUT % 49.6 % (42.8-82.8); PLATELET COUNT 257 K/MM3 (134-434); RBC 3.69 M/mm3 (3.60-5.2); WHITE BLOOD COUNT 10.6 K/mm3 (4.0-10.0)
[2019-07-08 08:28] LABS: BILIRUBIN,TOTAL 0.9 mg/dL (0.2-1); BLOOD UREA NITROGEN 6.2 mg/dL (7-18); CALCIUM 8.9 mg/dL (8.5-10.1); CREATININE 0.7 mg/dL (0.55-1.3); POTASSIUM 3.6 mmol/L (3.5-5.1); TOT PROT 6.2 g/dl (6.4-8.2)
[2019-07-08] MEDS: TAMSULOSIN HCL 0.4 MG CAP PO SCH (08:38)
[2019-07-08] MEDS ORDERED: DEXTROSE 5%-WATER - 50 ML IVPB ONE (09:24)
[2019-07-08] MEDS ORDERED: cefTRIAXone SODIUM 1 GM VIAL ONE (09:24)
[2019-07-08] MEDS: CEFTRIAXONE 1 GM in DEXTROSE 5%-WATER - 50 ML IVPB SCH (09:26)
[2019-07-08] MEDS: SODIUM CHLORIDE 1,000 ML IV SCH (09:27)
[2019-07-08] MEDS ORDERED: fentaNYL 50mcg/hr PATCH.TD72 TD SCH (10:00)
[2019-07-08] MEDS ORDERED: INSULIN (NOVOLOG) ASPART 100 UNITS/ML 10ML VIAL ONE (10:43)
[2019-07-08 11:59] VITALS: BP 115/50; PULSE 64; TEMP 99.6
--- NOTE | 2019-07-08 14:24 | DS ---
Physical Exam: SUBJECTIVE: Patient seen and examined OBJECTIVE: Vital Signs Period Temp Pulse Resp BP Sys/Thornton Pulse Ox Last 24 Hr 97.8 F-100.0 F 59-69 18-20 113-151/50-61 95-96 PHYSICAL EXAM GENERAL: The patient is awake, alert, and fully oriented, in no acute distress. HEAD: Normal with no signs of trauma. EYES: PERRL, extraocular movements intact, sclera anicteric, conjunctiva clear. ENT: Ears normal, nares patent, oropharynx clear without exudates, moist mucous membranes. NECK: Trachea midline, full range of motion, supple. LUNGS: Breath sounds equal, clear to auscultation bilaterally, no wheezes, no crackles, no accessory muscle use. HEART: Regular rate and rhythm, S1, S2 without murmur, rub or gallop. ABDOMEN: Soft, nontender, nondistended, normoactive bowel sounds, no guarding, no rebound, no hepatosplenomegaly, no masses. EXTREMITIES: 2+ pulses, warm, well-perfused, no edema. NEUROLOGICAL: Cranial nerves II through XII grossly intact. Normal speech, gait not observed. PSYCH: Normal mood, normal affect. SKIN: Warm, dry, normal turgor, no rashes or lesions noted. LABS Laboratory Results - last 24 hr 07/07/19 07/07/19 07/08/19 15:52 22:06 04:27 WBC RBC Hgb Hct MCV MCH MCHC RDW Plt Count MPV Absolute Neuts (auto) Neutrophils % Lymphocytes % Monocytes % Eosinophils % Basophils % Nucleated RBC % Sodium Potassium Chloride Carbon Dioxide Anion Gap BUN Creatinine Est GFR (CKD-EPI)AfAm Est GFR (CKD-EPI)NonAf POC Glucometer 247 233 202 Random Glucose Calcium Total Bilirubin AST ALT Alkaline Phosphatase Total Protein Albumin 07/08/19 07/08/19 07/08/19 07:30 07:30 10:38 WBC 10.6 H RBC 3.69 Hgb 11.7 Hct 35.0 MCV 94.8 MCH 31.8 MCHC 33.5 RDW 13.0 Plt Count 257 MPV 8.1 Absolute Neuts (auto) 5.3 Neutrophils % 49.6 Lymphocytes % 39.2 D Monocytes % 7.0 Eosinophils % 3.7 Basophils % 0.5 Nucleated RBC % 0 Sodium 143 Potassium 3.6 Chloride 112 H Carbon Dioxide 27 Anion Gap 5 L BUN 6.2 L Creatinine 0.7 Est GFR (CKD-EPI)AfAm 111.47 Est GFR (CKD-EPI)NonAf 96.18 POC Glucometer 220 Random Glucose 127 H Calcium 8.9 Total Bilirubin 0.9 AST 11 L ALT 25 Alkaline Phosphatase 70 Total Protein 6.2 L Albumin 3.0 L HOSPITAL COURSE: Date of Admission:07/06/19 Date of Discharge: 07/08/19 You came into the ED because of sudden onset of pain in your kidneys associated with nausea and vomiting.We did imaging of your abdomen that showed an obstructive stone and fluid back up into your right kidney and an infection . We consulted urology who placed a stent in your right kidney and we started you on antibiotics for the infection which you will continue for 8 more days on discharge. while you were here, your blood sugars were found to be elevated so we are discharging you home on a new medication and a glucometer for you to check your blood sugar every morning and log to give to your primary care physician.Your symptoms have improved and we are discharging you home. Discharge Summary Reason For Visit: CALCULUS OF KIDNEY Current Active Problems Nephrolithiasis (Acute) Condition: Stable - Instructions Diet, Activity, Other Instructions: You came into the ED because of sudden onset of pain in your kidneys associated with nausea and vomiting.We did imaging of your abdomen that showed an obstructive stone and fluid back up into your right kidney and an infection . We consulted urology who placed a stent in your right kidney and we started you on antibiotics for the infection which you will continue for 8 more days on discharge. while you were here, your blood sugars were found to be elevated so we are discharging you home on a new medication and a glucometer for you to check your blood sugar every morning and log to give to your primary care physician.Your symptoms have improved and we are discharging you home. Medications: We are discharging you home on NEW medications; Please resume your home medications Please take the antibiotic Keflex 500mg by mouth ONCE a day from 07/08/19-. Please take the blood sugar medication Metformin 500mg ONCE a day. Please take Flomax 0.4mg (medication to help pass urine) ONCE a day Follow up: Please follow up with urology Dr Moya within one week Please follow up with your primary care physician Dr Bernardino within one week and bring your blood sugar log. If you begin to experience kidney pain, fevers/chills, bleeding, shortness of breath, chest pain, or abdominal pain please return to the emergency room immediately Referrals: Robert Lebron [Primary Care Provider] - 1 Week Sal Moya MD [Staff Physician] - 1 Week Disposition: HOME - Home Medications Comprehensive Discharge Medication List: Ambulatory Orders Oxycodone HCl/Acetaminophen [Oxycodone-Acetaminophen 10-325] 1 each PO Q6H PRN 07/06/19 Cephalexin [Keflex] 500 mg PO DAILY #8 capsule 07/07/19 Fentanyl 50 mcg TD Q72H 07/07/19 Metformin HCl [Glucophage] 500 mg PO DAILY #30 tablet 07/08/19 Miscellaneous Medical Supply [Glucometer Device] 1 each ASDIR #1 kit Miscellaneous Medical Supply [Glucometer Test Strips #100] 1 each ASDIR #1 box 07/08/19 Miscellaneous Medical Supply [Lancets] 1 each ASDIR #1 box 07/08/19 Tamsulosin HCl [Flomax] 0.4 mg PO DAILY #14 capsule 07/08/19 - Discharge Referral Referred to [facility] Med [facility] No ATTENDING PHYSICIAN STATEMENT I saw and evaluated the patient. I reviewed the resident's note and discussed the case with the resident. I agree with the resident's findings and plan as documented. SUBJECTIVE: OBJECTIVE: ASSESSMENT AND PLAN:
--- NOTE | 2019-07-08 14:36 | PN ---
Teaching Attending Note Name of Resident: Landry Mayfield ATTENDING PHYSICIAN STATEMENT I saw and evaluated the patient. I reviewed the resident's note and discussed the case with the resident. I agree with the resident's findings and plan as documented. SUBJECTIVE: No fever or chills. No ORTIZ . feels better . 3 loose BMs at night but nothing today . abd pain is better OBJECTIVE: NAD HEENT: MMM CV: RRR, no MRG Lungs: CTAB ABd: soft, minimal TTP in RLQ, . No rebound tenderness . nl BS . No CVA tenderness Ext: No edema or erythema. ASSESSMENT AND PLAN: 58 y/o lady with remote h/o DM II, chronic back pain, CCY, L spine fusion who presented with R flank and abdominal pain.she was found to have an obstructing nephrolithiasis and UTI. 1- R obstructing uretheral stone with complicated UTI/pyelonephritis. s/p R ureteral stent placement. - urine cx neg but urine was dirty and thick fluid came out with stent placement . will treat for UTI despite neg urine cx -now CTX day 3 . will cont on keflex x 7 days - cont flomax fro 2 weeks . - c diff neg f/u with uro for stent removal in 2 weeks 2- h/o DM II, with hyperglycemia: liley due to infection. - A1c is low. but due to severe hyper glycemia, and overweight , will dc on metformin 3- Chronic back pain: cont fentanyl patch and percocet at dc dc home . f/u uro and PCP
--- NOTE | 2019-07-08 17:48 | DS ---
Physical Exam: SUBJECTIVE: Patient seen and examined. Pt. still complaining of R. flank tenderness that radiates to her groin and hematuria that has not gotten worse or better since her stent placement. Pt. states she had 3 episodes of diarrhea. Pt. denies any new complaints and Called Pt. after discharge to instruct her to hot die picker additional Metformin IR pills to make her dosage 500mg BID and for Keflex 500mg Q12Hrs for 7 days, OBJECTIVE: Vital Signs Period Temp Pulse Resp BP Sys/Thornton Pulse Ox Last 24 Hr 97.8 F-100.0 F 59-69 18-20 113-151/50-61 95-96 PHYSICAL EXAM GENERAL: The patient is awake, alert, and fully oriented, in no acute distress. HEAD: Normal with no signs of trauma. EYES: Extraocular movements intact, sclera anicteric, conjunctiva clear. ENT: Ears normal, nares patent, oropharynx clear without exudates, moist mucous membranes. LUNGS: Breath sounds equal, clear to auscultation bilaterally, no wheezes, no crackles, no accessory muscle use. No CVA tenderness HEART: Regular rate and rhythm, S1, S2 without murmur, rub or gallop. ABDOMEN: Soft, nontender, nondistended, normoactive bowel sounds, no guarding, no rebound EXTREMITIES: 2+ dorsal pedal pulses, warm, well-perfused, no calf tenderness no edema. NEUROLOGICAL: No focal deficits appreciated, Normal speech, gait not observed. PSYCH: Normal mood, normal affect. SKIN: Warm, dry, normal turgor LABS Laboratory Results - last 24 hr 07/07/19 07/08/19 07/08/19 22:06 04:27 07:30 WBC 10.6 H RBC 3.69 Hgb 11.7 Hct 35.0 MCV 94.8 MCH 31.8 MCHC 33.5 RDW 13.0 Plt Count 257 MPV 8.1 Absolute Neuts (auto) 5.3 Neutrophils % 49.6 Lymphocytes % 39.2 D Monocytes % 7.0 Eosinophils % 3.7 Basophils % 0.5 Nucleated RBC % 0 Sodium Potassium Chloride Carbon Dioxide Anion Gap BUN Creatinine Est GFR (CKD-EPI)AfAm Est GFR (CKD-EPI)NonAf POC Glucometer 233 202 Random Glucose Calcium Total Bilirubin AST ALT Alkaline Phosphatase Total Protein Albumin 07/08/19 07/08/19 07:30 10:38 WBC RBC Hgb Hct MCV MCH MCHC RDW Plt Count MPV Absolute Neuts (auto) Neutrophils % Lymphocytes % Monocytes % Eosinophils % Basophils % Nucleated RBC % Sodium 143 Potassium 3.6 Chloride 112 H Carbon Dioxide 27 Anion Gap 5 L BUN 6.2 L Creatinine 0.7 Est GFR (CKD-EPI)AfAm 111.47 Est GFR (CKD-EPI)NonAf 96.18 POC Glucometer 220 Random Glucose 127 H Calcium 8.9 Total Bilirubin 0.9 AST 11 L ALT 25 Alkaline Phosphatase 70 Total Protein 6.2 L Albumin 3.0 L HOSPITAL COURSE: Date of Admission:07/06/19 Date of Discharge: 07/08/19 Discharge Summary Reason For Visit: CALCULUS OF KIDNEY Condition: Stable - Instructions Diet, Activity, Other Instructions: You came into the ED because of sudden onset of pain in your kidneys associated with nausea and vomiting.We did imaging of your abdomen that showed an obstructive stone and fluid back up into your right kidney and an infection . We consulted urology who placed a stent in your right kidney and we started you on antibiotics for the infection which you will continue for 8 more days on discharge. while you were here, your blood sugars were found to be elevated so we are discharging you home on a new medication and a glucometer for you to check your blood sugar every morning and log to give to your primary care physician.Your symptoms have improved and we are discharging you home. Medications: We are discharging you home on NEW medications; Please resume your home medications Please take the antibiotic Keflex 500mg by mouth ONCE a day from 07/08/19-. Please take the blood sugar medication Metformin 500mg ONCE a day. Please take Flomax 0.4mg (medication to help pass urine) ONCE a day Follow up: Please follow up with urology Dr Moya within one week Please follow up with your primary care physician Dr Lebron within one week and bring your blood sugar log. If you begin to experience kidney pain, fevers/chills, bleeding, shortness of breath, chest pain, or abdominal pain please return to the emergency room immediately Referrals: Robert Lebron [Primary Care Provider] - 1 Week Sal Moya MD [Staff Physician] - 1 Week Disposition: HOME - Home Medications Comprehensive Discharge Medication List: Ambulatory Orders Oxycodone HCl/Acetaminophen [Oxycodone-Acetaminophen 10-325] 1 each PO Q6H PRN 07/06/19 Fentanyl 50 mcg TD Q72H 07/07/19 Cephalexin [Keflex] 500 mg PO Q12H #14 capsule 07/08/19 Metformin HCl [Glucophage] 500 mg PO BID #30 tablet 07/08/19 Miscellaneous Medical Supply [Glucometer Device] 1 each ASDIR #1 kit Miscellaneous Medical Supply [Glucometer Test Strips #100] 1 each ASDIR #1 box 07/08/19 Miscellaneous Medical Supply [Lancets] 1 each ASDIR #1 box 07/08/19 Tamsulosin HCl [Flomax] 0.4 mg PO DAILY #14 capsule 07/08/19 - Discharge Referral Referred to [facility] Med [facility].: No ATTENDING PHYSICIAN STATEMENT I saw and evaluated the patient. I reviewed the resident's note and discussed the case with the resident. I agree with the resident's findings and plan as documented. SUBJECTIVE: OBJECTIVE: ASSESSMENT AND PLAN:
== END 2019-07-08 15:49 | disposition home or self-care (01) | DRG 659 ==
LOC: JER 01:00 → JERBED 05:23 → J6S 09:19
PROVIDERS: ADMIT Internal Medicine; ATTEND Internal Medicine
PROC: 0T768DZ Dilation of Right Ureter with Intraluminal Device, Via Natural or Artificial Opening Endoscopic (ICD-10-PCS; principal; 2019-07-06 13:00)
PROC: BT1DYZZ Fluoroscopy of Right Kidney, Ureter and Bladder using Other Contrast (ICD-10-PCS; 2019-07-06 13:00)
DX: N13.6 Pyonephrosis (principal); E11.10 Type 2 diabetes mellitus with ketoacidosis without coma; D72.829 Elevated white blood cell count, unspecified; M54.9 Dorsalgia, unspecified; R19.7 Diarrhea, unspecified; E11.65 Type 2 diabetes mellitus with hyperglycemia; Z79.84 Long term (current) use of oral hypoglycemic drugs
CPT/HCPCS: 36415; 71046-TC-FY; 74176-TC; 76000-TC-FY; 76775-TC; 80048; 80053; 81003; 82962; 83036; 83735; 84100; 85025; 85610; 87086; 87324; 87449; 90732; 93005; 93010; 94760; 97116-GP; 97161-GP; 99283-25; G0009; J0131; J7030

== ENCOUNTER 2019-07-13 21:02 | Inpatient (IN) | payer OTHER ==
--- NOTE | 2019-07-13 21:23 | PDOC ---
Rapid Medical Evaluation Chief Complaint: Urinary Problem Time Seen by Provider: 07/13/19 21:18 Medical Evaluation: Allergies Allergy/AdvReac Type Severity Reaction Status Date / Time No Known Allergies Allergy Verified 07/06/19 01:31 07/13/19 21:18 58 year old female c/o urinary retention yesterday. now with trickling urine. recent diagnosis of kidney stone s/p stent by Dr. varela. sent to the ER for evaluation by Dr. boyer currently on cephalexin and flomax A: urinary retention P: bladder scan UA urine culture 07/13/19 21:22 Discharge Disposition - Diagnosis Urinary retention - Referrals - Patient Instructions - Post Discharge Activity
[2019-07-13 21:58] LABS: EPI CELLS 8.8 /HPF (0-5/HPF); HYALINE CASTS 7 /lpf (0-8); PH,URINE 5.5 (5.0-8.0); URINE APPEARANCE CLOUDY; URINE BILIRUBIN NEGATIVE (NEGATIVE); URINE COLOR ORANGE; URINE GLUCOSE (UA) NEGATIVE (NEGATIVE); URINE KETONE NEGATIVE (NEGATIVE); URINE LEUK ESTERASE 2+ (NEGATIVE); URINE NITRITE NEGATIVE (NEGATIVE); URINE PROTEIN 3+ (NEGATIVE); URINE RBC 2175 /hpf (0-4); URINE WBC 40 /hpf (0-5)
--- NOTE | 2019-07-13 22:09 | PDOC ---
History of Present Illness - General Chief Complaint: Urinary Problem Stated Complaint: NO URINATION(SENT BY PCP) Time Seen by Provider: 07/13/19 21:18 History Source: Patient Exam Limitations: No Limitations - History of Present Illness Initial Comments: 58 year old female with PMH NIDDM, recent nephrolithiasis requiring ureteral stenting, UTI presented to ED for right flank/groin pain, dysuria, urinary urgency since today. Pt denied fever, vomiting, chest pain, shortness of breath. ROS General: admitted to generalized weakness. denied fever, chills. HEENT: denied sore throat, rhinorrhea, ear pain. Cardiovascular: denied chest pain, palpitations, syncope, diaphoresis. Respiratory: denied shortness of breath, cough, sputum production, hemoptysis. Gastrointestinal: denied abdominal pain, nausea, vomiting, diarrhea, constipation, blood in stool. Genitourinary: admitted to dysuria, increased urinary frequency, hematuria, flank pain. denied urinary incontinence. Back: denied back pain. Musculoskeletal: denied joint pain, muscle pain, joint swelling. Neurological: denied headache, dizziness, numbness, tingling, weakness. Integumentary: denied rash, laceration, abrasion. Hematologic/Lymphatic: denied bruising or bleeding. PE Constitutional: Well-nourished, Well-developed, appearing stated age. HEENT: head is normocephalic, atraumatic. EOMI. PERRLA. Neck: supple. Full ROM. Cardiovascular: regular heart rhythm. no murmurs. no pericardial friction rub. Respiratory: clear to auscultation bilaterally. no crackles, rhonchi or wheezing. no stridor. Gastrointestinal: soft, nontender. normal bowel sounds. no rebound, guarding, masses. Back: positive right sided CVA tenderness. negative left sided CVA tenderness. Extremities: peripheral pulses intact. no lower extremity edema. Neurological: CN 2-12 grossly intact. moves all four extremities. Psych: awake, alert, oriented x3. follows commands. answers questions appropriately. Past History - Past Medical History Allergies/Adverse Reactions: Allergies Allergy/AdvReac Type Severity Reaction Status Date / Time No Known Allergies Allergy Verified 07/13/19 21:22 Home Medications: Ambulatory Orders Oxycodone HCl/Acetaminophen [Oxycodone-Acetaminophen 10-325] 1 each PO Q6H PRN 07/06/19 Fentanyl 50 mcg TD Q72H 07/07/19 Cephalexin [Keflex] 500 mg PO Q12H #14 capsule 07/08/19 Metformin HCl [Glucophage] 500 mg PO BID #30 tablet 07/08/19 Miscellaneous Medical Supply [Glucometer Device] 1 each ASDIR #1 kit Miscellaneous Medical Supply [Glucometer Test Strips #100] 1 each ASDIR #1 box 07/08/19 Miscellaneous Medical Supply [Lancets] 1 each ASDIR #1 box 07/08/19 Tamsulosin HCl [Flomax] 0.4 mg PO DAILY #14 capsule 07/08/19 Anemia: No Asthma: No Cancer: No Cardiac Disorders: No CVA: No COPD: No CHF: No Dementia: No Diabetes: Yes GI Disorders: No Disorders: No HTN: No Hypercholesterolemia: No Kidney Stones: Yes Liver Disease: No Seizures: No Thyroid Disease: No - Surgical History Abdominal Surgery: No Appendectomy: No Cardiac Surgery: No Cholecystectomy: Yes Lung Surgery: No Neurologic Surgery: No Orthopedic Surgery: Yes (r knee replacement) - Immunization History Immunization Up to Date: Yes - Suicide/Smoking/Psychosocial Hx Smoking History: Never smoked Have you smoked in the past 12 months: No Information on smoking cessation initiated: No Hx Alcohol Use: No Drug/Substance Use Hx: No *Physical Exam - Vital Signs Last Vital Signs Temp Pulse Resp BP Pulse Ox 98.0 F 94 H 18 134/64 100 07/13/19 21:19 07/13/19 21:19 07/13/19 21:19 07/13/19 21:19 07/13/19 21:19 Procedures - Bedside Ultrasound Remarks: Bedside kidney/bladder US: -No hydro bilaterally -Post void residual 22 cc ED Treatment Course - LABORATORY CBC & Chemistry Diagram: 07/13/19 23:00 07/13/19 23:00 - ADDITIONAL ORDERS Additional order review: Laboratory Results 07/13/19 21:40 Urine Color [place] Urine Appearance Cloudy Urine pH 5.5 Ur Specific [place] 1.018 Urine Protein 3+ H Urine Glucose (UA) Negative Urine Ketones Negative Urine Blood 3+ H Urine Nitrite Negative Urine Bilirubin Negative Urine Urobilinogen 1.0 Ur Leukocyte Esterase 2+ H Urine WBC (Auto) 40 Urine RBC (Auto) 2175 Urine Casts (Auto) 7 U Epithel Cells (Auto) 8.8 Urine Bacteria (Auto) 2.0 Medical Decision Making - Medical Decision Making 58 year old female with above PMH presented to ED for right flank/groin pain associated with dysuria, urinary urgency. Chart review: -07/06/19 Admitted at [facility] for R obstructed infected renal stone -07/06/19 CT report: Name: [facility] DEPARTMENT OF RADIOLOGY Phys: Aixa Torre RESIDENT : 1960 Age: 58 Sex: F [facility] Acct : [id number] Loc: [address] Exam Date: 07/06/19 Status: [place] [address] Unit Number: [id number] EXAM#: TYPE/EXAM: RESULT: CT/ABDOMEN PELVIS CT W/O CONTR Rule out appendicitis versus stone CT scan of the abdomen pelvis without oral and intravenous contrast Coronal and sagittal reformatted images were obtained Comparison: None available The visualized lung base appears unremarkable and the heart is within normal limits in size. Partially distended stomach limiting evaluation of its wall without gross thickening. The liver is within normal limits in size with questionable mild fatty infiltration. The spleen and pancreas appear unremarkable. Gallbladder is not visualized. Both adrenal glands appear unremarkable. The left kidney is within normal limits in size with a punctate nonobstructing stone in its midportion measuring 8 to. Right kidney is within normal limits in size with an obstructing stone at the ureteropelvic junction measuring 11 x 7.5 mm in AP and chest was then dimension and 9 mm in craniocaudal length. There is deformity of the right mid renal contour, posterior laterally. Cannot rule out a contour deforming mass There is no evidence of small bowel obstruction. Normal-appearing terminal ileum and appendix. Normal amount of stool in the colon. Normal size uterus. Partially distended urinary bladder is significantly limiting evaluation of its wall. Perirectal and pericecal fat are clear. Small calcified atheromatous plaques in in the abdominal aorta down through its bifurcation. There is posterior fusion of L4 and L5 vertebral bodies. There is fusion of L5-S1 posterior elements, left more than right with marked bilateral facet hypertrophy and heterotopic bone formation. A spinal stimulator is present in the right lower back at L3-L4 level with leads extending externally up to T7-T8 level where it is possibly entering the spinal canal. Confirmation of site of entering was not included on this exam IMPRESSION: Questionable mild fatty infiltration of liver. Nonvisualization of the gallbladder. Punctate nonobstructing left renal stone 11 x 7.5 x 9 mm obstructing stone at the right ureteropelvic junction with mild right renal hydronephrosis. Deformity of the right mid, posterior lateral contour for which further evaluation with ultrasound or contrast enhanced CT scan of the abdomen is needed to rule out the possibility of a contour deforming mass. A preliminary report was forwarded by the [employer] service, [employer] Case discussed with Keara Hall, healthcare provider in [facility]. Reported By: Mitch Avilez MD 07/06/19 0902 -R ureteral stent placed: Name: [facility] DEPARTMENT OF RADIOLOGY Phys: Sal Moya MD : 1960 Age: 58 Sex: F [facility] Acct: [id number] Loc: [address] Exam Date: 07/06/19 Status: [place] [address] Unit Number: [id number] ACCESSION # : [id number] EXAM#: TYPE/EXAM: RESULT: [id number] RAD/FLUOROSCOPY 1 HR Abdominal fluoroscopy: Right ureteral stent insertion and pain. 4 views have been obtained during a right ureteral stent insertion. The imaging is available for review. Fluoroscopy time 7.1 seconds. Reported By: Allen Street MD 1614 -07/08/19 Discharged home with Keflex, Flomax -Urine culture was negative Initial Vital Signs Temp Pulse Resp BP Pulse Ox 98.0 F 94 H 18 134/64 100 07/13/19 21:19 07/13/19 21:19 07/13/19 21:19 07/13/19 21:07/13/19 21: Afebrile. No tachycardia. No tachypnea. Mild hypertension. No hypoxia on room air. Labs ordered: CBC, CMP, lipase, UA/UC, coags Imaging ordered: CT abdomen/pelvis without contrast Medications ordered: tylenol IV once, normal saline bolus 1000 cc once EKG performed at 2256: rate 86, regular rhythm, normal axis, normal intervals, no acute ST changes. CXR report: Name: [facility] DEPARTMENT OF RADIOLOGY Phys: Yana Suggs RESIDENT : 1960 Age: 58 Sex: F [facility] Acct: [id number] Loc: [facility] Exam Date: 07/13/19 Status: [place] [address] Unit Number: [id number] EXAM#: TYPE/EXAM: RESULT: RAD/CHEST X-RAY PORTABLE* Chest: Flank pain A single AP view of the chest is been submitted. Since 07/06/2019 there is no significant change. There are clear lungs, spinal stimulator device, normal mediastinum and sharp angles. The bones and soft tissues are intact. Impression : No acute chest pathology. No significant change. Spinal stimulator device. Reported By: Allen Street MD 07/14/19 0718 Urine Test Results Urine Color [place] 07/13/19 21:40 Urine Appearance Cloudy 07/13/19 21:40 Urine pH 5.5 (5.0-8.0) 07/13/19 21:40 Ur Specific [place] 1.018 (1.010-1.035) 07/13/19 21:40 Urine Protein 3+ (NEGATIVE) H 07/13/19 21:40 Urine Glucose (UA) Negative (NEGATIVE) 07/13/19 21:40 Urine Ketones Negative (NEGATIVE) 07/13/19 21:40 Urine Blood 3+ (NEGATIVE) H 07/13/19 21:40 Urine Nitrite Negative (NEGATIVE) 07/13/19 21:40 Urine Bilirubin Negative (NEGATIVE) 07/13/19 21:40 Ur Leukocyte Esterase 2+ (NEGATIVE) H 07/13/19 21:40 Hematuria. Proteinuria. Positive for UTI. 07/13/19 23:38 ABG - respiratory alkalosis. no DKA. 07/13/19 23:52 CBC WBC 11.0 K/mm3 (4.0-10.0) H 07/13/19 23:00 RBC 4.25 M/mm3 (3.60-5.2) 07/13/19 23:00 Hgb 13.3 GM/dL (10.7-15.3) 07/13/19 23:00 Hct 40.1 % (32.4-45.2) 07/13/19 23:00 MCV 94.4 fl (80-96) 07/13/19 23:00 MCH 31.2 pg (25.7-33.7) 07/13/19 23:00 MCHC 33.0 g/dl (32.0-36.0) 07/13/19 23:00 RDW 13.1 % (11.6-15.6) 07/13/19 23:00 Plt Count 324 K/MM3 (134-434) D 07/13/19 23:00 MPV 8.1 fl (7.5-11.1) 07/13/19 23:00 Absolute Neuts (auto) 7.3 K/mm3 (1.5-8.0) 07/13/19 23:00 Neutrophils % 66.0 % (42.8-82.8) D 07/13/19 23:00 Lymphocytes % 26.3 % (8-40) D 07/13/19 23:00 Monocytes % 6.0 % (3.8-10.2) 07/13/19 23:00 Eosinophils % 1.2 % (0-4.5) 07/13/19 23:00 Basophils % 0.5 % (0-2.0) 07/13/19 23:00 Nucleated RBC % 0 % (0-0) 07/13/19 23:00 Leukocytosis without left shift. No anemia. CMP Sodium 139 mmol/L (136-145) 07/13/19 23:00 Potassium 3.6 mmol/L (3.5-5.1) 07/13/19 23:00 Chloride 108 mmol/L (98-107) H 07/13/19 23:00 Carbon Dioxide 25 mmol/L (21-32) 07/13/19 23:00 Anion Gap 7 MMOL/L (8-16) L 07/13/19 23:00 BUN 9.2 mg/dL (7-18) 07/13/19 23:00 Creatinine 0.7 mg/dL (0.55-1.3) 07/13/19 23:00 Est GFR (CKD-EPI)AfAm 111.47 07/13/19 23:00 Est GFR (CKD-EPI)NonAf 96.18 07/13/19 23:00 Random Glucose 146 mg/dL (74-106) H 07/13/19 23:00 Lactic Acid 1.6 mmol/L (0.4-2.0) 07/13/19 23:00 Calcium 9.7 mg/dL (8.5-10.1) 07/13/19 23:00 Magnesium 1.7 mg/dL (1.8-2.4) L 07/13/19 23:00 Total Bilirubin 1.1 mg/dL (0.2-1) H 07/13/19 23:00 AST 22 U/L (15-37) 07/13/19 23:00 ALT 41 U/L (13-61) 07/13/19 23:00 Alkaline Phosphatase 85 U/L (45-117) 07/13/19 23:00 Total Protein 7.7 g/dl (6.4-8.2) 07/13/19 23:00 Albumin 3.8 g/dl (3.4-5.0) 07/13/19 23:00 Lipase 88 U/L (73-393) 07/13/19 23:00 No electrolyte abnormalities. No MAREK. Lactate normal. No transaminitis. Lipase wnl. 07/14/19 00:37 CT report: Name: [facility] DEPARTMENT OF RADIOLOGY Phys: Yana Suggs RESIDENT : 1960 Age: 58 Sex: F [facility] Acct: [id number] Loc: [address] Exam Date: 07/13/19 Status: [place] [address] Unit Number: [id number] EXAM#: TYPE/EXAM: RESULT: [id number] CT/ABDOMEN PELVIS CT W/O CONTR Clinical history: 58-year-old female with recent right ureteral stent placement. Now with right flank and groin pain with dysuria. Comparison: 07/06/2019. Contiguous transaxial images were obtained from the diaphragmatic domes and pubic symphysis without the administration of oral and IV contrast as a Stone study. Sagittal and coronal reconstructions were performed. Lung bases: Negative. Bone : Postop changes. Osteopenia and degenerative changes. Liver: There is a fatty liver. Gallbladder: Not seen. Biliary tree: Negative. Spleen: Negative. Pancreas : Negative. Adrenals: Negative. Kidneys: Right kidney shows a double pigtail catheter in place with the proximal pigtail in the right kidney in the disc on the bladder. No hydronephrosis seen. Previously seen 10 mm calculus now appears in an infundibulum. Small left renal stone. Pelvis: Normal bladder distention with trace air anteriorly. Most likely postinstrumentation. Rule out cystitis. Bowel: Negative. Possible normal appendix. No appendicitis seen. Other: Stimulator device in the buttocks on the right. Small hiatal hernia. However inguinal hernias with fat. Impression: Interval insertion of right double pigtail catheter with appropriate locations of both proximal and the distal pigtails. 10 mm previously obstructing stone now in right collecting system. Small left renal calculus. Other findings as above. The study was initially read by Ching. Reported By: Allen Felton MD 07/14/19 0821 Pt to be admitted for failed outpatient UTI treatment. Dr. Chau was called by pt earlier today, is aware, no need for emergent consultation at this moment. Consult placed in computer. Pt to be admitted. Dr. Bailey called. 07/14/19 00:57 Pt signed out to Dr. Fisher, PGY2 IM Resident, pt to be admitted under Dr. Newman 's care. Pending admission. *DC/Admit/Observation/Transfer Diagnosis at time of Disposition: UTI (urinary tract infection), S/P ureteral stent placement - Discharge Dispostion Condition at time of disposition: Stable Decision to Admit order: Yes - Referrals - Patient Instructions - Post Discharge Activity
[2019-07-13] MEDS ORDERED: SODIUM CHLORIDE 1,000 ML IV STA (22:12)
--- NOTE | 2019-07-13 22:15 | PDOC ---
Attending Attestation - Resident Resident Name: Yana Suggs - ED Attending Attestation I have performed the following: I have examined & evaluated the patient, The case was reviewed & discussed with the resident, I agree w/resident's findings & plan, Exceptions are as noted - HPI HPI: 07/14/19 00:13 58yo female with hx of renal stones s/p stent placement by Dr. Moya last week. Pt with a UTI as well. Sent home with oral abx. Today with hesitancy , dysuria, freq, urgency and blood. Pt states she has not had bleeding or pain since the stent was placed. Still with 1 day of abx at home. Pt also with dm- states glucose has been running > 200 since the infection started. Pt denies f/ c. C/o pressure in lower abd. R flank pain. No cp/sob. No cough. No n/v/d. 07/14/19 00:15 Pt called and was sent to the ED by Dr. Del Rosario - Physicial Exam PE: 07/14/19 00:15 Gen: aaox3, uncomfortable heart: +s1s2 reg lungs: cta b/l abd: soft, obese, R cva ttp, suprapubic ttp, nondistended ext: no c/c/e - Medical Decision Making 07/14/19 00:16 a/p: 58yo female with R flank pain and recent stent placement and also with uti symptoms despite a week of abx -labs sent from [facility] show a persistent UTI -blood labs pending -will start abx - no prior cultures with + results -pt with abd pain and recent stent placement -will send for ct imaging of the abd and discuss with urology -pt will need admission 07/14/19 00:21 normal renal function wbc 11 uti glu 146 07/14/19 00:[address] avelar microblog sent to [facility] 07/14/19 00:59 [facility] stent in place on ct Heart Score/ECG Review - ECG Intrepretation Comment:: 07/14/19 00:19 sinus at 86, nl axis, nl interval, baseline artifact, no acute st/t wave findings
[2019-07-13] MEDS ORDERED: ACETAMINOPHEN 1000 MG/100 ML VIAL (NON FORMULARY) IVPB ONE (22:58)
[2019-07-13 23:27] LABS: BASO % 0.5 % (0-2.0); EOS % 1.2 % (0-4.5); HEMATOCRIT 40.1 % (32.4-45.2); HEMOGLOBIN 13.3 GM/dL (10.7-15.3); LYMPH % 26.3 % (8-40); MCH 31.2 pg (25.7-33.7); MEAN CELL VOLUME 94.4 fl (80-96); MEAN PLT VOLUME 8.1 fl (7.5-11.1); PLATELET COUNT 324 K/MM3 (134-434); RBC 4.25 M/mm3 (3.60-5.2); RDW 13.1 % (11.6-15.6); VENOUS PC02 35.1 mmHg (38-52); VENOUS PH 7.44 (7.31-7.41)
[2019-07-13 23:30] LABS: VENOUS PO2 < 49 mmHg (28-48)
[2019-07-13 23:37] LABS: INR 1.21 (0.83-1.09); PROTHROMBIN TIME (PATIENT) 14.3 SEC (9.7-13.0)
[2019-07-13 23:42] LABS: MAGNESIUM 1.7 mg/dL (1.8-2.4)
[2019-07-13 23:46] LABS: ALBUMIN 3.8 g/dl (3.4-5.0); ALK PHOS 85 U/L (45-117); ANION GAP 7 MMOL/L (8-16); BILIRUBIN,TOTAL 1.1 mg/dL (0.2-1); BLOOD UREA NITROGEN 9.2 mg/dL (7-18); CALCIUM 9.7 mg/dL (8.5-10.1); CHLORIDE 108 mmol/L (98-107); CO2 25 mmol/L (21-32); CREATININE 0.7 mg/dL (0.55-1.3); GLUCOSE,RANDOM 146 mg/dL (74-106); POTASSIUM 3.6 mmol/L (3.5-5.1); SGOT/AST 22 U/L (15-37); SGPT/ALT 41 U/L (13-61); SODIUM 139 mmol/L (136-145); TOT PROT 7.7 g/dl (6.4-8.2)
[2019-07-14 00:08] LABS: ACETONE SERUM NEGATIVE (NEGATIVE)
[2019-07-14] MEDS ORDERED: ACETAMINOPHEN INJECTION 100 ML IVPB ONE (00:22)
[2019-07-14] MEDS ORDERED: PIPERACILLIN/TAZOB 3.375 GM 3.375 GM in DEXTROSE 5%-WATER - 50 ML IVPB ONE (00:36)
[2019-07-14] MEDS ORDERED: KETOROLAC TROMETHAMINE 30 MG/1 ML VIAL IVPUSH ONE (00:55)
--- NOTE | 2019-07-14 01:02 | PN ---
Teaching Attending Note Name of Resident: Allen Ramos ATTENDING PHYSICIAN STATEMENT I saw and evaluated the patient. I reviewed the resident's note and discussed the case with the resident. I agree with the resident's findings and plan as documented. SUBJECTIVE: Patient is a 58 year old woman with PMH of NIDDM, Chronic lumbar spine pain (s/ p L4-S1 spinal fusion and spine stimulator placement), Renal stones (s/p stent placement by Dr. Moya last week) who presents with hesitancy, dysuria, frequency, urgency and hematuria. Patient was treated with Rocephin for UTI on - got ?2 doses and discharged on Keflex on 07/08/19 - remained symptomatic on discharge. Patient denies fever, chills, nausea, vomiting, chest pain or cough. Has supra pubic pressure and right flank pain. LMP was 2 years ago. Has FH of COPD, DM, Hypertension, Colon cancer and HLD. OBJECTIVE: Alert Vital Signs Period Temp Pulse Resp BP Sys/Thornton Pulse Ox Last 24 Hr 98.0 F 94 18 134/64 100 HEENT: No Jaundice, eye redness or discharge, PERRLA, EOMI. Normocephalic, atraumatic. External ears are normal and hearing is grossly intact. No nasal discharge. Neck: Supple, nontender. No palpable adenopathy or thyromegaly. No JVD Chest: Good effort. Clear to auscultation and percussion. Heart: Regular. No S3, rub or murmur Abdomen: Not distended, soft, suprapubic and right CVA tenderness; no HSM. No rebound or guarding. Normal bowel sounds. Ext: Peripheral pulses intact. No leg edema. Skin: Warm and dry. No petechiae, rash or ecchymosis. Neuro: Alert. Oriented x3. CN 2-12 grossly intact. Sensation grossly intact in all four extremities and DTR are symmetric. Psych: Appropriate mood and affect. Good insight. Current Medications Generic Name Dose Route Start Last Admin Trade Name Freq PRN Reason Stop Dose Admin Acetaminophen 1,000 mg 07/14/19 02:10 Ofirmev Injection - IVPB Q6H PRN PAIN LEVEL 6-10 Fentanyl 1 patch 07/14/19 10:00 Duragesic 50mcg Patch - TD Q72H EDUARDO Piperacillin Sod/Tazobactam 50 mls @ 100 mls/hr 07/14/19 07:30 Sod 3.375 gm/ Dextrose IVPB Q8H-IV [facility] Protocol Piperacillin Sod/Tazobactam 50 mls @ 100 mls/hr 07/14/19 02:45 Sod 3.375 gm/ Dextrose IVPB 07/14/19 18:29 Q8H-[facility] Sodium Chloride 1,000 mls @ 100 mls/hr 07/14/19 03:00 Normal Saline - IV ASDIR [facility] Insulin Aspart 1 vial 07/14/19 07:00 Novolog Vial Sliding Scale - SQ ACHS [facility] Protocol Miscellaneous 1 each 07/14/19 02:57 Duragesic Patch Waste TD PRN PRN PATCH REMOVAL Tamsulosin HCl 0.4 mg 07/14/19 08:30 Flomax - PO DAILY@0830 [facility] Home Medications Medication Instructions Recorded Oxycodone HCl/Acetaminophen 1 each PO Q6H PRN 07/06/19 [Oxycodone-Acetaminophen 10-325] Fentanyl 50 mcg TD Q72H 07/07/19 Cephalexin [Keflex] 500 mg PO Q12H #14 capsule 07/08/19 Metformin HCl [Glucophage] 500 mg PO BID #30 tablet 07/08/19 Miscellaneous Medical Supply 1 each ASDIR #1 kit 07/08/19 [Glucometer Device] Miscellaneous Medical Supply 1 each ASDIR #1 box 07/08/19 [Glucometer Test Strips #100] Miscellaneous Medical Supply 1 each ASDIR #1 box 07/08/19 [Lancets] Tamsulosin HCl [Flomax] 0.4 mg PO DAILY #14 capsule 07/08/19 Abnormal Lab Results 07/13/19 07/13/19 07/13/19 21:40 23:00 23:00 WBC 11.0 H PT with INR INR VBG pH POC VBG pCO2 POC VBG pO2 VBG O2 Sat (Maryanne) Chloride 108 H Anion Gap 7 L Random Glucose 146 H Magnesium Total Bilirubin 1.1 H Urine Protein 3+ H Urine Blood 3+ H Ur Leukocyte Esterase 2+ H Acetone, Qual Negative L 07/13/19 07/13/19 07/13/19 23:00 23:00 23:00 WBC PT with INR 14.30 H INR 1.21 H VBG pH 7.44 H POC VBG pCO2 35.1 L POC VBG pO2 < 49 H VBG O2 Sat (Maryanne) 80.6 H Chloride Anion Gap Random Glucose Magnesium 1.7 L Total Bilirubin Urine Protein Urine Blood Ur Leukocyte Esterase Acetone, Qual ASSESSMENT AND PLAN: 1. UTI/Kidney stones - CT abdomen/pelvis shows bilateral nonobstructing kidney stones. Patient has evidence of UTI and hematuria but may also have hemorrhagic cystitis. Urine culture from 07/06/19 was negative. Will treat with IV Zosyn, IV NS, Flomax and consult Urology and ID. Will keep her NPO. Needs outpatient work up to search for stone disease risk factor. Will give IV MgSO4. 2. DM For now, we will hold the home diabetes drugs and implement sliding scale insulin regimen. Provide comprehensive diabetes care with patient teaching and counseling about the importance of adherence to prescribed diabetes regimen, euglycemia, eye care and foot care. 3. Obesity Counseled on the risks associated with obesity. Will provide patient all the necessary assistance, counseling and positive reinforcement to facilitate weight loss. Consult division roadmaster. 4. DVT prophylaxis - SCD 5. Advance directives - Full code
[2019-07-14] MEDS ORDERED: KETOROLAC TROMETHAMINE 30 MG/1 ML VIAL ONE (01:27)
[2019-07-14] MEDS ORDERED: PIPERACILLIN/TAZOB 3.375 GM 3.375 GM/50 ML BAG IVPB ONE ×2 (01:27→10:18)
[2019-07-14] MEDS: PIPERACILLIN/TAZOB 3.375 GM 3.375 GM in DEXTROSE 5%-WATER - 50 ML IVPB SCH ×2 (01:35→10:54)
--- NOTE | 2019-07-14 02:52 | HP ---
CHIEF COMPLAINT: flank and back pain PCP: Dr. Lebron HISTORY OF PRESENT ILLNESS: Sabine Kent is a 58 year old female with a past medical history of NIDDM, chronic lumbar spin pain s/p L4-S1 fusion, spinal stimulator, nephrolithasis s/ p stenting who presents with a one day history of R flank pain. Patient was recently admitted for right sided obstructive stone and had a stent placed with Dr. Moya. She was given ceftriaxone and discharged on Keflex. Urine cultures were negative on previous admission. She was to follow up with Dr. Moya next Wednesday. Patient had persistent dull pain on the right side of her back since the placement of the stent as well as hematuria every day. Today, the patient stated that the amount of pain she had increased and was complaining of persistent hematuria, urgency, frequency, dysuria, feelings of incomplete emptying that was maximal at 1800 and presented to the ED for further evaluation after calling Dr. Moya and being advised to come in. She denies chest pain, shortness of breath, fever, chills, headache, dizziness, lightheadedness, syncope, abdominal pain, nausea, vomiting, numbness , tingling, weakness, falls. Denies trauma to the back, sick contacts. Denies loss of appetite, poor intake. Patient stated that her glucose measurements at home ranged from the 170s to high 200s. ER course was notable for: (1) Abd/pelvis CT-> R pelvic stent in place, 1cm stone in the R collecting system, 2mm non-obstructing stone in the left ureter (2) UA 3+ protein, 3+ blood, 2+ LE, 40 WBC, 2175 RBC, 2.0 bacteria (3) WBC 11.0 PAST MEDICAL HISTORY: as above PAST SURGICAL HISTORY: cholecystectomy R TKA R ureteral stent placement Social History: Smoking: denies Alcohol: denies Drugs: denies Lives at home with and daughter. Family History: denies significant family history Allergies No Known Allergies Allergy (Verified 07/13/19 21:22) HOME MEDICATIONS: Home Medications Medication Instructions Recorded Oxycodone HCl/Acetaminophen 1 each PO Q6H PRN 07/06/19 [Oxycodone-Acetaminophen 10-325] Fentanyl 50 mcg TD Q72H 07/07/19 Cephalexin [Keflex] 500 mg PO Q12H #14 capsule 07/08/19 Metformin HCl [Glucophage] 500 mg PO BID #30 tablet 07/08/19 Miscellaneous Medical Supply 1 each ASDIR #1 kit 07/08/19 [Glucometer Device] Miscellaneous Medical Supply 1 each ASDIR #1 box 07/08/19 [Glucometer Test Strips #100] Miscellaneous Medical Supply 1 each ASDIR #1 box 07/08/19 [Lancets] Tamsulosin HCl [Flomax] 0.4 mg PO DAILY #14 capsule 07/08/19 REVIEW OF SYSTEMS CONSTITUTIONAL: Absent: fever, chills, diaphoresis, generalized weakness, malaise, loss of appetite, weight change HEENT: Absent: rhinorrhea, nasal congestion, throat pain, throat swelling, visual changes CARDIOVASCULAR: Absent: chest pain, syncope, palpitations, irregular heart rate, lightheadedness , peripheral edema RESPIRATORY: Absent: cough, shortness of breath, dyspnea with exertion, orthopnea, wheezing GASTROINTESTINAL: suprapubic discomfort Absent: abdominal distension, nausea, vomiting, diarrhea, constipation GENITOURINARY: dysuria, frequency, urgency, hesitancy, hematuria, flank pain, feeling of incomplete emptying, radiating groin pain Absent: MUSCULOSKELETAL: back pain Absent: myalgia, arthralgia, joint swelling, neck pain SKIN: Absent: rash, itching, pallor HEMATOLOGIC/IMMUNOLOGIC: Absent: easy bleeding, easy bruising, lymphadenopathy, frequent infections ENDOCRINE: Absent: unexplained weight gain, unexplained weight loss, heat intolerance, cold intolerance NEUROLOGIC: Absent: headache, focal weakness or paresthesias, dizziness, unsteady gait, seizure, mental status changes PSYCHIATRIC: Absent: anxiety, depression, suicidal or homicidal ideation, hallucinations. PHYSICAL EXAMINATION Vital Signs - 24 hr 07/13/19 21:19 Temperature 98.0 F Pulse Rate 94 H Respiratory 18 Rate Blood Pressure 134/64 O2 Sat by Pulse 100 Oximetry (%) GENERAL: Awake, alert, and fully oriented, in no acute distress. Lying of left side. HEAD: Normal with no signs of trauma. EYES: Pupils equal, round and reactive to light, extraocular movements intact, sclera anicteric, conjunctiva clear. EARS, NOSE, THROAT: Oropharynx clear without exudates. Moist mucous membranes. NECK: Normal range of motion, supple without lymphadenopathy, JVD. LUNGS: Breath sounds equal, clear to auscultation bilaterally. No wheezes, and no crackles. No accessory muscle use. HEART: Regular rate and rhythm, normal S1 and S2 without murmur, rub or gallop. ABDOMEN: Soft, obese, mildly tender to palpation in suprapubic area, not distended, normoactive bowel sounds, no guarding, no rebound, no masses. MUSCULOSKELETAL: Normal range of motion at all joints. No bony deformities or tenderness. Noted R sided CVA tenderness. UPPER EXTREMITIES: 2+ pulses, warm, well-perfused. No cyanosis. No clubbing. No peripheral edema. LOWER EXTREMITIES: 2+ pulses, warm, well-perfused. No calf tenderness. No peripheral edema. NEUROLOGICAL: Cranial nerves II-XII intact. 5/5 muscle strength bilaterally upper and lower extremities. PSYCHIATRIC: Cooperative. Good eye contact. Appropriate mood and affect. SKIN: Warm, dry, normal turgor, no rashes or lesions noted, normal capillary refill. Laboratory Results - last 24 hr 07/13/19 07/13/19 07/13/19 21:40 23:00 23:00 WBC 11.0 H RBC 4.25 Hgb 13.3 Hct 40.1 MCV 94.4 MCH 31.2 MCHC 33.0 RDW 13.1 Plt Count 324 D MPV 8.1 Absolute Neuts (auto) 7.3 Neutrophils % 66.0 D Lymphocytes % 26.3 D Monocytes % 6.0 Eosinophils % 1.2 Basophils % 0.5 Nucleated RBC % 0 PT with INR INR PTT (Actin FS) VBG pH POC VBG pCO2 POC VBG pO2 VBG HCO3 VBG O2 Sat (Maryanne) VBG Base Excess Sodium 139 Potassium 3.6 Chloride 108 H Carbon Dioxide 25 Anion Gap 7 L BUN 9.2 Creatinine 0.7 Est GFR (CKD-EPI)AfAm 111.47 Est GFR (CKD-EPI)NonAf 96.18 Random Glucose 146 H Lactic Acid Calcium 9.7 Magnesium Total Bilirubin 1.1 H AST 22 ALT 41 Alkaline Phosphatase 85 Total Protein 7.7 Albumin 3.8 Lipase Urine Color [place] Urine Appearance Cloudy Urine pH 5.5 Ur Specific [place] 1.018 Urine Protein 3+ H Urine Glucose (UA) Negative Urine Ketones Negative Urine Blood 3+ H Urine Nitrite Negative Urine Bilirubin Negative Urine Urobilinogen 1.0 Ur Leukocyte Esterase 2+ H Urine WBC (Auto) 40 Urine RBC (Auto) 2175 Urine Casts (Auto) 7 U Epithel Cells (Auto) 8.8 U Sm Round Cell (Auto) Negative Urine Bacteria (Auto) 2.0 Acetone, Qual Negative L Blood Type Antibody Screen 07/13/19 07/13/19 07/13/19 23:00 23:00 23:00 WBC RBC Hgb Hct MCV MCH MCHC RDW Plt Count MPV Absolute Neuts (auto) Neutrophils % Lymphocytes % Monocytes % Eosinophils % Basophils % Nucleated RBC % PT with INR INR PTT (Actin FS) VBG pH 7.44 H POC VBG pCO2 35.1 L POC VBG pO2 < 49 H VBG HCO3 23.3 VBG O2 Sat (Maryanne) 80.6 H VBG Base Excess -0.1 Sodium Potassium Chloride Carbon Dioxide Anion Gap BUN Creatinine Est GFR (CKD-EPI)AfAm Est GFR (CKD-EPI)NonAf Random Glucose Lactic Acid Calcium Magnesium 1.7 L Total Bilirubin AST ALT Alkaline Phosphatase Total Protein Albumin Lipase 88 Urine Color Urine Appearance Urine pH Ur Specific [place] Urine Protein Urine Glucose (UA) Urine Ketones Urine Blood Urine Nitrite Urine Bilirubin Urine Urobilinogen Ur Leukocyte Esterase Urine WBC (Auto) Urine RBC (Auto) Urine Casts (Auto) U Epithel Cells (Auto) U Sm Round Cell (Auto) Urine Bacteria (Auto) Acetone, Qual Blood Type A POSITIVE Antibody Screen Negative 07/13/19 07/13/19 07/13/19 23:00 23:00 23:00 WBC RBC Hgb Hct MCV MCH MCHC RDW Plt Count MPV Absolute Neuts (auto) Neutrophils % Lymphocytes % Monocytes % Eosinophils % Basophils % Nucleated RBC % PT with INR 14.30 H INR 1.21 H PTT (Actin FS) 32.4 VBG pH POC VBG pCO2 POC VBG pO2 VBG HCO3 VBG O2 Sat (Maryanne) VBG Base Excess Sodium Potassium Chloride Carbon Dioxide Anion Gap BUN Creatinine Est GFR (CKD-EPI)AfAm Est GFR (CKD-EPI)NonAf Random Glucose Lactic Acid 1.6 Calcium Magnesium Total Bilirubin AST ALT Alkaline Phosphatase Total Protein Albumin Lipase Urine Color Urine Appearance Urine pH Ur Specific [place] Urine Protein Urine Glucose (UA) Urine Ketones Urine Blood Urine Nitrite Urine Bilirubin Urine Urobilinogen Ur Leukocyte Esterase Urine WBC (Auto) Urine RBC (Auto) Urine Casts (Auto) U Epithel Cells (Auto) U Sm Round Cell (Auto) Urine Bacteria (Auto) Acetone, Qual Blood Type Antibody Screen EKG--> NSR, questionable q waves in III and aVF, no ST segment changes, QTc 435 ASSESSMENT/PLAN: Sabine Kent is a 58 year old female with a past medical history of NIDDM, chronic lumbar spin pain s/p L4-S1 fusion, spinal stimulator, nephrolithasis s/ p stenting admitted for flank pain likely secondary to complicated UTI vs continued pain from R renal stone. Flank Pain DM Back Pain Flank Pain - likely secondary to UTI vs R renal stone - UA showing significant hematuria - ratio of WBC to RBC exceeds typical blood ratio of 1:500, higher suspicion of UTI - can consider hemorrhagic cystitis - Dr. Moya consulted - previously was on ceftriaxone and Keflex, need for broader coverage with abx - Zosyn 3.375 gm q6h - ID consulted - urine and blood cultures drawn - pain control with IV Tylenol - NPO pending possible intervention - continue flomax - outpatient assessment of renal stone pathology DM - based on home measurements needs tighter glucose control - BGM - ISS Back Pain - chronic - continue fentanyl patch FEN - NS at 100cc/hr - continue to monitor electrolytes and replete as necessary - NPO pending possible intervention Prophylaxis - SCDs pending possible intervention Code - full code SHAKEEL COLLAZO DO - PGY-1 Visit type - Emergency Visit Emergency Visit: Yes ED Registration Date: 07/14/19 Care time: The patient presented to the Emergency Department on the above date and was hospitalized for further evaluation of their emergent condition. - New Patient This patient is new to me today: Yes Date on this admission: 07/14/19 - Critical Care Critical Care patient: No
[2019-07-14] MEDS ORDERED: FENTANYL PATCH WASTE TD PRN (02:57)
[2019-07-14] MEDS ORDERED: FENTANYL 50 MCG TD SCH (03:00)
[2019-07-14] MEDS: SODIUM CHLORIDE 1,000 ML IV SCH ×2 (03:30→22:57)
[2019-07-14] MEDS ORDERED: MAGNESIUM SULF 50% (8.12 MEQ/2 ML-1 GM VIAL) IVPB ONE ×2 (03:49→08:49)
[2019-07-14] MEDS ORDERED: oxyCODONE HCL 5 MG TABLET PO ONE (03:49)
[2019-07-14] MEDS ORDERED: MAGNESIUM 1GM/D5W - 1 GM/100 ML IVPB IVPB ONE ×2 (03:54→08:53)
[2019-07-14] MEDS: INSULIN SLIDING SCALE (NOVOLOG) 1 VIAL SQ SCH ×4 (06:00→21:43)
[2019-07-14] MEDS ORDERED: PIPERACILLIN/TAZOB 2.25 GM 2.25 GM in DEXTROSE 5%-WATER - 50 ML IVPB SCH (07:30)
[2019-07-14] MEDS ORDERED: PIPERACILLIN/TAZOB 3.375 GM 3.375 GM in DEXTROSE 5%-WATER - 50 ML IVPB SCH (07:30)
--- NOTE | 2019-07-14 08:31 | PN ---
Teaching Attending Note Name of Resident: Sol Jay ATTENDING PHYSICIAN STATEMENT I saw and evaluated the patient. I reviewed the resident's note and discussed the case with the resident. I agree with the resident's findings and plan as documented. SUBJECTIVE: Patient denies having any urinary frequency or urgency. no fever or chills, having difficulty with urination. OBJECTIVE: Vital Signs Temperature 97.8 F 07/14/19 05:22 Pulse Rate 60 07/14/19 05:22 Respiratory Rate 18 07/14/19 05:22 Blood Pressure 137/64 07/14/19 05:22 O2 Sat by Pulse Oximetry (%) 98 07/14/19 05:22 GENERAL: The patient is awake, alert, and fully oriented, in no acute distress. HEAD: Normal with no signs of trauma. EYES: PERRL, extraocular movements intact, sclera anicteric, conjunctiva clear. ENT: Ears normal, oropharynx clear without exudates, moist mucous membranes. NECK: Trachea midline, full range of motion, supple. LUNGS: Breath sounds equal, clear to auscultation bilaterally, no wheezes, no crackles, no accessory muscle use. HEART: Regular rate and rhythm, S1, S2 without murmur, rub or gallop. ABDOMEN: Soft, NT,ND, normoactive bowel sounds, no guarding, no rebound, no hepatosplenomegaly, no masses. EXTREMITIES: 2+ pulses, warm, well-perfused, no edema. NEUROLOGICAL: Cranial nerves II through XII grossly intact. Normal speech, gait is stable . PSYCH: Normal mood, normal affect. SKIN: Warm, dry, normal turgor, no rashes or lesions noted CBCD WBC 11.0 K/mm3 (4.0-10.0) H 07/13/19 23:00 RBC 4.25 M/mm3 (3.60-5.2) 07/13/19 23:00 Hgb 13.3 GM/dL (10.7-15.3) 07/13/19 23:00 Hct 40.1 % (32.4-45.2) 07/13/19 23:00 MCV 94.4 fl (80-96) 07/13/19 23:00 MCHC 33.0 g/dl (32.0-36.0) 07/13/19 23:00 RDW 13.1 % (11.6-15.6) 07/13/19 23:00 Plt Count 324 K/MM3 (134-434) D 07/13/19 23:00 MPV 8.1 fl (7.5-11.1) 07/13/19 23:00 CMP Sodium 139 mmol/L (136-145) 07/13/19 23:00 Potassium 3.6 mmol/L (3.5-5.1) 07/13/19 23:00 Chloride 108 mmol/L (98-107) H 07/13/19 23:00 Carbon Dioxide 25 mmol/L (21-32) 07/13/19 23:00 Anion Gap 7 MMOL/L (8-16) L 07/13/19 23:00 BUN 9.2 mg/dL (7-18) 07/13/19 23:00 Creatinine 0.7 mg/dL (0.55-1.3) 07/13/19 23:00 Random Glucose 146 mg/dL (74-106) H 07/13/19 23:00 Calcium 9.7 mg/dL (8.5-10.1) 07/13/19 23:00 Total Bilirubin 1.1 mg/dL (0.2-1) H 07/13/19 23:00 AST 22 U/L (15-37) 07/13/19 23:00 ALT 41 U/L (13-61) 07/13/19 23:00 Alkaline Phosphatase 85 U/L (45-117) 07/13/19 23:00 Total Protein 7.7 g/dl (6.4-8.2) 07/13/19 23:00 Albumin 3.8 g/dl (3.4-5.0) 07/13/19 23:00 Current Medications Generic Name Dose Route Start Last Admin Trade Name Freq PRN Reason Stop Dose Admin Acetaminophen 1,000 mg 07/14/19 02:10 Ofirmev Injection - IVPB Q6H PRN PAIN LEVEL 6-10 Fentanyl 1 patch 07/14/19 10:00 Duragesic 50mcg Patch - TD Q72H EDUARDO Piperacillin Sod/Tazobactam 50 mls @ 100 mls/hr 07/14/19 07:30 Sod 3.375 gm/ Dextrose IVPB Q8H-IV EDUARDO Protocol Piperacillin Sod/Tazobactam 50 mls @ 100 mls/hr 07/14/19 02:45 07/14/19 01:35 Sod 3.375 gm/ Dextrose IVPB 07/14/19 18:29 Not Given Q8H-IV [facility] Sodium Chloride 1,000 mls @ 100 mls/hr 07/14/19 03:00 07/14/19 03:30 Normal Saline - IV 100 mls/hr ASDIR [facility] Administration Insulin Aspart 1 vial 07/14/19 07:00 07/14/19 06:00 Novolog Vial Sliding Scale - SQ Not Given ACHS [facility] Protocol Miscellaneous 1 each 07/14/19 02:57 Duragesic Patch Waste TD PRN PRN PATCH REMOVAL Tamsulosin HCl 0.4 mg 07/14/19 08:30 Flomax - PO DAILY@0830 [facility] Home Medications Medication Instructions Recorded Oxycodone HCl/Acetaminophen 1 each PO Q6H PRN 07/06/19 [Oxycodone-Acetaminophen 10-325] Fentanyl 50 mcg TD Q72H 07/07/19 Cephalexin [Keflex] 500 mg PO Q12H #14 capsule 07/08/19 Metformin HCl [Glucophage] 500 mg PO BID #30 tablet 07/08/19 Miscellaneous Medical Supply 1 each ASDIR #1 kit 07/08/19 [Glucometer Device] Miscellaneous Medical Supply 1 each ASDIR #1 box 07/08/19 [Glucometer Test Strips #100] Miscellaneous Medical Supply 1 each ASDIR #1 box 07/08/19 [Lancets] Tamsulosin HCl [Flomax] 0.4 mg PO DAILY #14 capsule 07/08/19 Urine Test Results Urine Color [place] 07/13/19 21:40 Urine Appearance Cloudy 07/13/19 21:40 Urine pH 5.5 (5.0-8.0) 07/13/19 21:40 Ur Specific [place] 1.018 (1.010-1.035) 07/13/19 21:40 Urine Protein 3+ (NEGATIVE) H 07/13/19 21:40 Urine Glucose (UA) Negative (NEGATIVE) 07/13/19 21:40 Urine Ketones Negative (NEGATIVE) 07/13/19 21:40 Urine Blood 3+ (NEGATIVE) H 07/13/19 21:40 Urine Nitrite Negative (NEGATIVE) 07/13/19 21:40 Urine Bilirubin Negative (NEGATIVE) 07/13/19 21:40 Ur Leukocyte Esterase 2+ (NEGATIVE) H 07/13/19 21:40 WBC is 50 RBC 2K ASSESSMENT AND PLAN: Patient is a 58 year old female with a PMHx of T2DM, chronic lumbar spin pain s/ p L4-S1 fusion, spinal stimulator, nephrolithasis s/p right ureteral stenting on 07/07/2019 presented with flank pain due to having complicated UTI /infected ureteral stent. # Acute UTI s/p stenting on 07/07/2019 due to having hydronephrosis with nephrolithiasis cannot r/o infected ureteral stent. ON IV Zosyn , id on board, mora culture , NPO for now, uro is consulted , Mora cx #T2DM: SS with coverage #Hx of chronic Back Pain with on spinal stimulator: on Fentanyl patch DVT PX: SCDs full code
[2019-07-14] MEDS: TAMSULOSIN HCL 0.4 MG CAP PO SCH (08:35)
[2019-07-14] MEDS ORDERED: fentaNYL 25mcg/hr PATCH.TD72 ONE (11:19)
--- NOTE | 2019-07-14 11:37 | PN ---
Progress Note (short form) - Note Progress Note: ID consult dictated imp/reccd stent placed last week hematuria and pain over last few days no fevers difficulty voiding today await urology evaluation cultures sent doubt uti can resume ceftriaxone while awaiting cultures Problem List - Problems (1) S/P ureteral stent placement Code(s): Z96.0 - PRESENCE OF UROGENITAL IMPLANTS (2) Hematuria Code(s): R31.9 - HEMATURIA, UNSPECIFIED (3) Nephrolithiasis Code(s): N20.0 - CALCULUS OF KIDNEY (4) UTI (urinary tract infection) Code(s): N39.0 - URINARY TRACT INFECTION, SITE NOT SPECIFIED
[2019-07-14] MEDS: fentaNYL 50mcg/hr PATCH.TD72 TD SCH (11:40)
--- NOTE | 2019-07-14 14:01 | EKG ---
Test Reason : Blood Pressure : / mmHG Vent. Rate : 086 BPM Atrial Rate : 086 BPM P-R Int : 172 ms QRS Dur : 080 ms QT Int : 364 ms P-R-T Axes : 024 -04 014 degrees QTc Int : 435 ms SINUS RHYTHM WITH FUSION COMPLEXES CANNOT RULE OUT INFERIOR INFARCT (CITED ON OR BEFORE 06-JUL-2019) ABNORMAL ECG WHEN COMPARED WITH ECG OF 06-JUL-2019 02:28, FUSION COMPLEXES ARE NOW PRESENT Confirmed by ESPINOZA HANNA MD ([id number]) on 07/14/2019 2:00:41 PM Referred By: Confirmed By:ESPINOZA HANNA MD
[2019-07-14] MEDS ORDERED: DEXTROSE 5%-WATER - 50 ML IVPB ONE (15:33)
[2019-07-14] MEDS ORDERED: cefTRIAXone SODIUM 1 GM VIAL ONE (15:33)
[2019-07-14] MEDS: CEFTRIAXONE 1 GM in DEXTROSE 5%-WATER - 50 ML IVPB SCH (15:37)
--- NOTE | 2019-07-14 15:45 | PN ---
Physical Exam: SUBJECTIVE: Patient seen and examined. Pt explained that she was having some pain in her flank region and difficulty urinating but otherwise no other complaints. OBJECTIVE: Vital Signs Period Temp Pulse Resp BP Sys/Thornton Pulse Ox Last 24 Hr 97.8 F-98.3 F 60-94 18-18 117-137/49-66 98-100 GENERAL: The patient is awake, alert, and fully oriented, in mild distress. HEAD: Normal with no signs of trauma. EYES: PERRL, extraocular movements intact, sclera anicteric, conjunctiva clear. No ptosis. LUNGS: Breath sounds equal, clear to auscultation bilaterally, no wheezes, no crackles, no accessory muscle use. HEART: Regular rate and rhythm, S1, S2 without murmur, rub or gallop. ABDOMEN: Soft, suprapubic tenderness, nondistended, normoactive bowel sounds, no guarding, no rebound, no hepatosplenomegaly, no masses. EXTREMITIES: 2+ pulses, warm, well-perfused, no edema. Laboratory Results - last 24 hr 07/13/19 07/13/19 07/13/19 21:40 23:00 23:00 WBC 11.0 H RBC 4.25 Hgb 13.3 Hct 40.1 MCV 94.4 MCH 31.2 MCHC 33.0 RDW 13.1 Plt Count 324 D MPV 8.1 Absolute Neuts (auto) 7.3 Neutrophils % 66.0 D Lymphocytes % 26.3 D Monocytes % 6.0 Eosinophils % 1.2 Basophils % 0.5 Nucleated RBC % 0 PT with INR INR PTT (Actin FS) VBG pH POC VBG pCO2 POC VBG pO2 VBG HCO3 VBG O2 Sat (Maryanne) VBG Base Excess Sodium 139 Potassium 3.6 Chloride 108 H Carbon Dioxide 25 Anion Gap 7 L BUN 9.2 Creatinine 0.7 Est GFR (CKD-EPI)AfAm 111.47 Est GFR (CKD-EPI)NonAf 96.18 POC Glucometer Random Glucose 146 H Lactic Acid Calcium 9.7 Magnesium Total Bilirubin 1.1 H AST 22 ALT 41 Alkaline Phosphatase 85 Total Protein 7.7 Albumin 3.8 Lipase Urine Color [place] Urine Appearance Cloudy Urine pH 5.5 Ur Specific [place] 1.018 Urine Protein 3+ H Urine Glucose (UA) Negative Urine Ketones Negative Urine Blood 3+ H Urine Nitrite Negative Urine Bilirubin Negative Urine Urobilinogen 1.0 Ur Leukocyte Esterase 2+ H Urine WBC (Auto) 40 Urine RBC (Auto) 2175 Urine Casts (Auto) 7 U Epithel Cells (Auto) 8.8 U Sm Round Cell (Auto) Negative Urine Bacteria (Auto) 2.0 Acetone, Qual Negative L Blood Type Antibody Screen 07/13/19 07/13/19 07/13/19 23:00 23:00 23:00 WBC RBC Hgb Hct MCV MCH MCHC RDW Plt Count MPV Absolute Neuts (auto) Neutrophils % Lymphocytes % Monocytes % Eosinophils % Basophils % Nucleated RBC % PT with INR INR PTT (Actin FS) VBG pH 7.44 H POC VBG pCO2 35.1 L POC VBG pO2 < 49 H VBG HCO3 23.3 VBG O2 Sat (Maryanne) 80.6 H VBG Base Excess -0.1 Sodium Potassium Chloride Carbon Dioxide Anion Gap BUN Creatinine Est GFR (CKD-EPI)AfAm Est GFR (CKD-EPI)NonAf POC Glucometer Random Glucose Lactic Acid Calcium Magnesium 1.7 L Total Bilirubin AST ALT Alkaline Phosphatase Total Protein Albumin Lipase 88 Urine Color Urine Appearance Urine pH Ur Specific [place] Urine Protein Urine Glucose (UA) Urine Ketones Urine Blood Urine Nitrite Urine Bilirubin Urine Urobilinogen Ur Leukocyte Esterase Urine WBC (Auto) Urine RBC (Auto) Urine Casts (Auto) U Epithel Cells (Auto) U Sm Round Cell (Auto) Urine Bacteria (Auto) Acetone, Qual Blood Type A POSITIVE Antibody Screen Negative 07/13/19 07/13/19 07/13/19 23:00 23:00 23:00 WBC RBC Hgb Hct MCV MCH MCHC RDW Plt Count MPV Absolute Neuts (auto) Neutrophils % Lymphocytes % Monocytes % Eosinophils % Basophils % Nucleated RBC % PT with INR 14.30 H INR 1.21 H PTT (Actin FS) 32.4 VBG pH POC VBG pCO2 POC VBG pO2 VBG HCO3 VBG O2 Sat (Maryanne) VBG Base Excess Sodium Potassium Chloride Carbon Dioxide Anion Gap BUN Creatinine Est GFR (CKD-EPI)AfAm Est GFR (CKD-EPI)NonAf POC Glucometer Random Glucose Lactic Acid 1.6 Calcium Magnesium Total Bilirubin AST ALT Alkaline Phosphatase Total Protein Albumin Lipase Urine Color Urine Appearance Urine pH Ur Specific [place] Urine Protein Urine Glucose (UA) Urine Ketones Urine Blood Urine Nitrite Urine Bilirubin Urine Urobilinogen Ur Leukocyte Esterase Urine WBC (Auto) Urine RBC (Auto) Urine Casts (Auto) U Epithel Cells (Auto) U Sm Round Cell (Auto) Urine Bacteria (Auto) Acetone, Qual Blood Type Antibody Screen 07/14/19 07/14/19 05:46 12:08 WBC RBC Hgb Hct MCV MCH MCHC RDW Plt Count MPV Absolute Neuts (auto) Neutrophils % Lymphocytes % Monocytes % Eosinophils % Basophils % Nucleated RBC % PT with INR INR PTT (Actin FS) VBG pH POC VBG pCO2 POC VBG pO2 VBG HCO3 VBG O2 Sat (Maryanne) VBG Base Excess Sodium Potassium Chloride Carbon Dioxide Anion Gap BUN Creatinine Est GFR (CKD-EPI)AfAm Est GFR (CKD-EPI)NonAf POC Glucometer 138 146 Random Glucose Lactic Acid Calcium Magnesium Total Bilirubin AST ALT Alkaline Phosphatase Total Protein Albumin Lipase Urine Color Urine Appearance Urine pH Ur Specific [place] Urine Protein Urine Glucose (UA) Urine Ketones Urine Blood Urine Nitrite Urine Bilirubin Urine Urobilinogen Ur Leukocyte Esterase Urine WBC (Auto) Urine RBC (Auto) Urine Casts (Auto) U Epithel Cells (Auto) U Sm Round Cell (Auto) Urine Bacteria (Auto) Acetone, Qual Blood Type Antibody Screen Active Medications Generic Name Dose Route Start Last Admin Trade Name Freq PRN Reason Stop Dose Admin Acetaminophen 1,000 mg 07/14/19 02:10 Ofirmev Injection - IVPB Q6H PRN PAIN LEVEL 6-10 Fentanyl 1 patch 07/14/19 10:00 07/14/19 11:40 Duragesic 50mcg Patch - TD 1 patch Q72H EDUARDO Administration Piperacillin Sod/Tazobactam 50 mls @ 100 mls/hr 07/14/19 07:30 Sod 3.375 gm/ Dextrose IVPB Q8H-IV EDUARDO Protocol Sodium Chloride 1,000 mls @ 100 mls/hr 07/14/19 03:00 07/14/19 03:30 Normal Saline - IV 100 mls/hr ASDIR EDUARDO Administration Ceftriaxone Sodium 1 gm/ 50 mls @ 100 mls/hr 07/14/19 14:30 07/14/19 15:37 Dextrose IVPB 100 mls/hr DAILY EDUARDO Administration Protocol Insulin Aspart 1 vial 07/14/19 07:00 07/14/19 12:11 Novolog Vial Sliding Scale - SQ Not Given ACHS EDUARDO Protocol Miscellaneous 1 each 07/14/19 02:57 Duragesic Patch Waste TD PRN PRN PATCH REMOVAL Tamsulosin HCl 0.4 mg 07/14/19 08:30 07/14/19 08:35 Flomax - PO 0.4 mg DAILY@0830 EDUARDO Administration ASSESSMENT/PLAN: 58 year old female with a past medical history of NIDDM, chronic lumbar spin pain s/p L4-S1 fusion, spinal stimulator, nephrolithasis s/p stenting admitted for flank pain likely secondary to complicated UTI vs continued pain from R renal stone. Flank Pain likely secondary to UTI vs R renal stone UA showing significant hematuria Urine cx, blood culture pending Dr. Moya consulted Currently on ceftriaxone and Zosyn ID consulted pain control with IV Tylenol lieberman in for possible retention DM based on home measurements needs tighter glucose control BGM ISS Back Pain chronic continue fentanyl patch FEN NS at 100cc/hr NPO pending possible intervention Monitor lytes Prophylaxis SCDs pending possible intervention Code full code Visit type - Emergency Visit Emergency Visit: Yes ED Registration Date: 07/14/19 Care time: The patient presented to the Emergency Department on the above date and was hospitalized for further evaluation of their emergent condition. - New Patient This patient is new to me today: Yes Date on this admission: 07/14/19 - Critical Care Critical Care patient: No - Discharge Referral Referred to [facility] Med P.C.: No ATTENDING PHYSICIAN STATEMENT I saw and evaluated the patient. I reviewed the resident's note and discussed the case with the resident. I agree with the resident's findings and plan as documented. SUBJECTIVE: OBJECTIVE: ASSESSMENT AND PLAN:
[2019-07-14] MEDS ORDERED: ONDANSETRON 4 MG/2 ML VIAL IVPUSH PRN (16:26)
[2019-07-14] MEDS: morphine SULFATE 4 MG/ML VIAL IVPUSH PRN ×2 (17:47→22:35)
--- NOTE | 2019-07-14 18:23 | CONS ---
DATE OF CONSULTATION: DATE OF DICTATION: 07/14/2019 INFECTIOUS DISEASE CONSULTATION HISTORY OF PRESENT ILLNESS: This is a 58-year-old female who was recently hospitalized at [facility] with nephrolithiasis. She had a stent placed on July 06. She was given ceftriaxone in the hospital. Urine culture was negative. She was discharged on oral Keflex which she was taking. She was to follow up with Dr. Moya the next Wednesday. She reports she had persistent pain on the right side of her back since the placement of the stent, as well as persistent hematuria. She felt the pain had increased and with persistent hematuria, she reported to the ER. She also noted she was having difficulty urinating. She had no fevers or chills. She has had no nausea or vomiting. In the emergency room, she had a repeat CT scan that shows the stent in place, and no evidence of hydronephrosis, and she has a 1-cm stone in the right collecting system. Urinalysis was notable for 3+ blood. White count was 11,000. There was no fever. PAST MEDICAL HISTORY: Notable for noninsulin dependent diabetes. She has a history of nephrolithiasis. SURGICAL HISTORY: Notable for cholecystectomy. Right . Left lumbosacral spinal fusion. She has a spinal stimulator and she has had this recent stent. SOCIAL HISTORY: There is no history of cigarette, alcohol, or substance use. She lives at home with her and daughter. FAMILY HISTORY: Unremarkable. ALLERGIES: She has no known drug allergies. MEDICATION: Medications at home include Percocet, metformin, tamsulosin. She has a fentanyl patch every 72 hours and metformin 500 mg daily. REVIEW OF SYSTEMS: As per HPI. She has no shortness of breath. She has no diarrhea. PHYSICAL EXAMINATION: Vital Signs: Temperature 98.3, pulse 66, blood pressure 130/66, respiratory rate 18, she is saturating 99% on room air. HEENT: Normocephalic. Eyes are anicteric. Neck: Supple. Lungs: Clear to auscultation. Heart: Regular rate and rhythm. Abdomen: Soft, nontender. She has some right flank discomfort on deep palpation. Extremities: Without edema. White count is 11,000. Hemoglobin is 13.3, platelets are 324. BUN and creatinine are 9 and 0.7. Total bilirubin is 1.1, and urinalysis has 3+ protein, 3+ blood, 2+ leukocytes with 40 white cells and 2000 red cells. Urine and blood cultures are pending. IMPRESSION: In summary, this is a 58-year-old woman who has a stent in place for nephrolithiasis, admitted with worsening hematuria and flank pain, I suspect on the basis of stent. I do not feel clinically this is consistent with urinary tract infection. Would resume ceftriaxone while waiting for cultures and would await urology evaluation. Further recommendations to follow. Fracisco [id number]
[2019-07-14 19:51] VITALS: BMI 45.7
[2019-07-15] MEDS: morphine SULFATE 4 MG/ML VIAL IVPUSH PRN ×3 (04:48→20:15)
[2019-07-15] MEDS: INSULIN SLIDING SCALE (NOVOLOG) 1 VIAL SQ SCH ×4 (06:43→23:32)
[2019-07-15] MEDS: TAMSULOSIN HCL 0.4 MG CAP PO SCH (08:30)
--- NOTE | 2019-07-15 09:03 | PN ---
Progress Note (short form) - Note Progress Note: Patient is feeling better , with no urgency or frequency. Vital Signs Temperature 98.1 F 07/15/19 09:01 Pulse Rate 59 L 07/15/19 09:01 Respiratory Rate 18 07/15/19 09:01 Blood Pressure 101/47 L 07/15/19 09:01 O2 Sat by Pulse Oximetry (%) 99 07/14/19 21:00 GENERAL: The patient is awake, alert, and fully oriented, in no acute distress. HEAD: Normal with no signs of trauma. EYES: PERRL, extraocular movements intact, sclera anicteric, conjunctiva clear. ENT: Ears normal, oropharynx clear without exudates, moist mucous membranes. NECK: Trachea midline, full range of motion, supple. LUNGS: Breath sounds equal, clear to auscultation bilaterally, no wheezes, no crackles, no accessory muscle use. HEART: Regular rate and rhythm, S1, S2 without murmur, rub or gallop. ABDOMEN: Soft, NT,ND, normoactive bowel sounds, no guarding, no rebound, no hepatosplenomegaly, no masses. EXTREMITIES: 2+ pulses, warm, well-perfused, no edema. NEUROLOGICAL: Cranial nerves II through XII grossly intact. Normal speech, gait not observed. PSYCH: Normal mood, normal affect. SKIN: Warm, dry, normal turgor, no rashes or lesions noted : positive for lieberman CBCD WBC 11.0 K/mm3 (4.0-10.0) H 07/13/19 23:00 RBC 4.25 M/mm3 (3.60-5.2) 07/13/19 23:00 Hgb 13.3 GM/dL (10.7-15.3) 07/13/19 23:00 Hct 40.1 % (32.4-45.2) 07/13/19 23:00 MCV 94.4 fl (80-96) 07/13/19 23:00 MCHC 33.0 g/dl (32.0-36.0) 07/13/19 23:00 RDW 13.1 % (11.6-15.6) 07/13/19 23:00 Plt Count 324 K/MM3 (134-434) D 07/13/19 23:00 MPV 8.1 fl (7.5-11.1) 07/13/19 23:00 CMP Sodium 139 mmol/L (136-145) 07/13/19 23:00 Potassium 3.6 mmol/L (3.5-5.1) 07/13/19 23:00 Chloride 108 mmol/L (98-107) H 07/13/19 23:00 Carbon Dioxide 25 mmol/L (21-32) 07/13/19 23:00 Anion Gap 7 MMOL/L (8-16) L 07/13/19 23:00 BUN 9.2 mg/dL (7-18) 07/13/19 23:00 Creatinine 0.7 mg/dL (0.55-1.3) 07/13/19 23:00 Random Glucose 146 mg/dL (74-106) H 07/13/19 23:00 Calcium 9.7 mg/dL (8.5-10.1) 07/13/19 23:00 Total Bilirubin 1.1 mg/dL (0.2-1) H 07/13/19 23:00 AST 22 U/L (15-37) 07/13/19 23:00 ALT 41 U/L (13-61) 07/13/19 23:00 Alkaline Phosphatase 85 U/L (45-117) 07/13/19 23:00 Total Protein 7.7 g/dl (6.4-8.2) 07/13/19 23:00 Albumin 3.8 g/dl (3.4-5.0) 07/13/19 23:00 Current Medications Generic Name Dose Route Start Last Admin Trade Name Albinoq PRN Reason Stop Dose Admin Acetaminophen 1,000 mg 07/14/19 02:10 Ofirmev Injection - IVPB Q6H PRN PAIN LEVEL 6-10 Fentanyl 1 patch 07/14/19 10:00 07/14/19 11:40 Duragesic 50mcg Patch - TD 1 patch Q72H EDUARDO Administration Sodium Chloride 1,000 mls @ 100 mls/hr 07/14/19 03:00 07/14/19 22:57 Normal Saline - IV 100 mls/hr ASDIR EDUARDO Administration Ceftriaxone Sodium 1 gm/ 50 mls @ 100 mls/hr 07/14/19 14:30 07/14/19 15:37 Dextrose IVPB 100 mls/hr DAILY EDUARDO Administration Protocol Insulin Aspart 1 vial 07/14/19 07:00 07/15/19 06:43 Novolog Vial Sliding Scale - SQ Not Given ACHS [facility] Protocol Miscellaneous 1 each 07/14/19 02:57 Duragesic Patch Waste TD PRN PRN PATCH REMOVAL Morphine Sulfate 2 mg 07/14/19 17:29 07/15/19 04:48 Morphine Sulfate IVPUSH 2 mg Q4H PRN Administration PAIN LEVEL 4 - 6 Ondansetron HCl 4 mg 07/14/19 16:26 07/14/19 17:47 Zofran Injection IVPUSH 4 mg Q6H PRN Administration NAUSEA AND/OR VOMITING Tamsulosin HCl 0.4 mg 07/14/19 08:30 07/15/19 08:30 Flomax - PO 0.4 mg DAILY@0830 [facility] Administration Home Medications Medication Instructions Recorded Oxycodone HCl/Acetaminophen 1 each PO Q6H PRN 07/06/19 [Oxycodone-Acetaminophen 10-325] Fentanyl 50 mcg TD Q72H 07/07/19 Cephalexin [Keflex] 500 mg PO Q12H #14 capsule 07/08/19 Metformin HCl [Glucophage] 500 mg PO BID #30 tablet 07/08/19 Miscellaneous Medical Supply 1 each ASDIR #1 kit 07/08/19 [Glucometer Device] Miscellaneous Medical Supply 1 each ASDIR #1 box 07/08/19 [Glucometer Test Strips #100] Miscellaneous Medical Supply 1 each ASDIR #1 box 07/08/19 Tamsulosin HCl [Flomax] 0.4 mg PO DAILY #14 capsule 07/08/19 Urine Test Results Urine Color [place] 07/13/19 21:40 Urine Appearance Cloudy 07/13/19 21:40 Urine pH 5.5 (5.0-8.0) 07/13/19 21:40 Ur Specific [place] 1.018 (1.010-1.035) 07/13/19 21:40 Urine Protein 3+ (NEGATIVE) H 07/13/19 21:40 Urine Glucose (UA) Negative (NEGATIVE) 07/13/19 21:40 Urine Ketones Negative (NEGATIVE) 07/13/19 21:40 Urine Blood 3+ (NEGATIVE) H 07/13/19 21:40 Urine Nitrite Negative (NEGATIVE) 07/13/19 21:40 Urine Bilirubin Negative (NEGATIVE) 07/13/19 21:40 Ur Leukocyte Esterase 2+ (NEGATIVE) H 07/13/19 21:40 WBC is 50 RBC 2K Microbiology 07/14/19 12:05 Urine - Urine Lieberman Urine Culture - Final NO GROWTH OBTAINED 07/13/19 21:40 Urine - Urine Clean Catch Urine Culture - Final Corynebacterium Species 07/13/19 23:00 Blood - Peripheral Venous Blood Culture - Preliminary NO GROWTH OBTAINED AFTER 24 HOURS, INCUBATION TO CONTINUE FOR 4 DAYS. 07/13/19 23:00 Blood - Peripheral Venous Blood Culture - Preliminary NO GROWTH OBTAINED AFTER 24 HOURS, INCUBATION TO CONTINUE FOR [address] abdomen and Pelvis: Kidneys: right kidney shows double pigtail catheter in place with the proximal pigtail in the right kidney in the disc of the bladder. No hyronephrosis seen, previosly seen 10mm calculus now appears in the infundubilum. ASSESSMENT AND PLAN: Patient is a 58 year old female with a PMHx of T2DM, chronic lumbar spin pain s/ p L4-S1 fusion, spinal stimulator, nephrolithasis s/p right ureteral stenting on 07/07/2019 presented with flank pain due to having complicated UTI /infected ureteral stent. # Acute UTI s/p stenting on 07/07/2019 due to having hydronephrosis with nephrolithiasis continue IV abx, waiting for urologist s/p stu , id on board , mora culture is negative so far, waiting for urology input . #T2DM: SS with coverage #Hx of chronic Back Pain with on spinal stimulator: on Fentanyl patch DVT PX: SCDs full code Visit type - Emergency Visit Emergency Visit: Yes ED Registration Date: 07/14/19 Care time: The patient presented to the Emergency Department on the above date and was hospitalized for further evaluation of their emergent condition. - New Patient This patient is new to me today: No - Critical Care Critical Care patient: No - Discharge Referral Referred to [facility] Med P.C.: No
[2019-07-15] MEDS ORDERED: cefTRIAXone SODIUM 1 GM VIAL ONE (09:23)
[2019-07-15] MEDS ORDERED: DEXTROSE 5%-WATER - 50 ML IVPB ONE (09:23)
[2019-07-15] MEDS: CEFTRIAXONE 1 GM in DEXTROSE 5%-WATER - 50 ML IVPB SCH (09:36)
[2019-07-15 10:17] LABS: BASO % 0.5 % (0-2.0); EOS % 3.7 % (0-4.5); HEMATOCRIT 35.5 % (32.4-45.2); HEMOGLOBIN 11.9 GM/dL (10.7-15.3); LYMPH % 32.8 % (8-40); MCH 31.6 pg (25.7-33.7); MCHC 33.5 g/dl (32.0-36.0); MEAN CELL VOLUME 94.5 fl (80-96); MEAN PLT VOLUME 8.5 fl (7.5-11.1); MONO % 6.2 % (3.8-10.2); NEUT % 56.8 % (42.8-82.8); PLATELET COUNT 296 K/MM3 (134-434); RBC 3.76 M/mm3 (3.60-5.2); RDW 12.8 % (11.6-15.6); WHITE BLOOD COUNT 9.5 K/mm3 (4.0-10.0)
[2019-07-15] MEDS: SODIUM CHLORIDE 1,000 ML IV SCH ×2 (10:21→20:17)
[2019-07-15 10:28] LABS: INR 1.17 (0.83-1.09); PROTHROMBIN TIME (PATIENT) 13.8 SEC (9.7-13.0)
[2019-07-15 10:31] LABS: ACTIVATED PTT 27.9 SECONDS (25.2-36.5)
[2019-07-15 10:46] LABS: ALBUMIN 3.1 g/dl (3.4-5.0); BILIRUBIN,TOTAL 1.2 mg/dL (0.2-1); BLOOD UREA NITROGEN 5.5 mg/dL (7-18); CALCIUM 8.7 mg/dL (8.5-10.1); CREATININE 0.6 mg/dL (0.55-1.3); MAGNESIUM 2.2 mg/dL (1.8-2.4); POTASSIUM 3.8 mmol/L (3.5-5.1); TOT PROT 6.4 g/dl (6.4-8.2)
--- NOTE | 2019-07-15 17:10 | PN ---
Progress Note, Physician History of Present Illness: C/O FLANK PAIN ESCOBEDO IN PLACE AFEBRILE WBC WNL C/S NO GROWTH - Current Medication List Current Medications: Active Medications Acetaminophen (Ofirmev Injection -) 1,000 mg IVPB Q6H PRN PRN Reason: PAIN LEVEL 6-10 Fentanyl (Duragesic 50mcg Patch -) 1 patch TD Q72H EDUARDO Last Admin: 07/14/19 11:40 Dose: 1 patch Sodium Chloride (Normal Saline -) 1,000 mls @ 100 mls/hr IV ASDIR [facility] Last Admin: 07/15/19 10:21 Dose: 100 mls/hr Ceftriaxone Sodium 1 gm/ (Dextrose) 50 mls @ 100 mls/hr IVPB DAILY [facility]; Protocol Last Admin: 07/15/19 09:36 Dose: 100 mls/hr Insulin Aspart (Novolog Vial Sliding Scale -) 1 vial SQ ACHS [facility]; Protocol Last Admin: 07/15/19 17:01 Dose: 2 units Miscellaneous (Duragesic Patch Waste) 1 each TD PRN PRN PRN Reason: PATCH REMOVAL Morphine Sulfate (Morphine Sulfate) 2 mg IVPUSH Q4H PRN PRN Reason: PAIN LEVEL 4 - 6 Last Admin: 07/15/19 09:32 Dose: 2 mg Ondansetron HCl (Zofran Injection) 4 mg IVPUSH Q6H PRN PRN Reason: NAUSEA AND/OR VOMITING Last Admin: 07/14/19 17:47 Dose: 4 mg Tamsulosin HCl (Flomax -) 0.4 mg PO DAILY@0830 [facility] Last Admin: 07/15/19 08:30 Dose: 0.4 mg - Objective Vital Signs: Vital Signs Temperature 98.1 F 07/15/19 09:01 Pulse Rate 59 L 07/15/19 09:01 Respiratory Rate 18 07/15/19 09:01 Blood Pressure 101/47 L 07/15/19 09:01 O2 Sat by Pulse Oximetry (%) 99 07/14/19 21:00 Constitutional: Yes: No Distress Cardiovascular: Yes: Regular Rate and Rhythm, S1, S2 Respiratory: Yes: CTA Bilaterally Gastrointestinal: Yes: Normal Bowel Sounds, Soft Genitourinary: Yes: CVA Tenderness - Right Edema: No Labs: CBC, BMP 07/15/19 08:39 07/15/19 08:39 INR, PTT INR 1.17 (0.83-1.09) H 07/15/19 08:39 Assessment/Plan NEPHROLITHIASIS/URETERAL STENT R URETERAL STENT CONTINUE EMPIRIC CEFTRIAXONE F/U
[2019-07-15] MEDS ORDERED: PT OWN MED DRAWER 7, Y5N ONE (20:11)
[2019-07-16] MEDS: morphine SULFATE 4 MG/ML VIAL IVPUSH PRN ×3 (05:36→23:11)
[2019-07-16] MEDS: INSULIN SLIDING SCALE (NOVOLOG) 1 VIAL SQ SCH ×4 (06:41→21:17)
[2019-07-16] MEDS: SODIUM CHLORIDE 1,000 ML IV SCH (06:43)
[2019-07-16] MEDS: TAMSULOSIN HCL 0.4 MG CAP PO SCH (08:42)
[2019-07-16] MEDS ORDERED: cefTRIAXone SODIUM 1 GM VIAL ONE (09:00)
[2019-07-16] MEDS ORDERED: DEXTROSE 5%-WATER - 50 ML IVPB ONE (09:01)
[2019-07-16] MEDS: CEFTRIAXONE 1 GM in DEXTROSE 5%-WATER - 50 ML IVPB SCH (09:06)
--- NOTE | 2019-07-16 13:12 | PN ---
Physical Exam: SUBJECTIVE: Patient seen and examined at the bedside, there were no acute events overnight. Patient received 2mg morphine overnight for pain which helped. OBJECTIVE: Vital Signs Period Temp Pulse Resp BP Sys/Thornton Pulse Ox Last 24 Hr 97.7 F-98.4 F 61-71 18-20 104-122/44-59 GENERAL: The patient is awake, alert, and fully oriented, in mild distress. HEAD: Normal with no signs of trauma. EYES: PERRL, extraocular movements intact, sclera anicteric, conjunctiva clear. No ptosis. LUNGS: Breath sounds equal, clear to auscultation bilaterally, no wheezes, no crackles, no accessory muscle use. HEART: Regular rate and rhythm, S1, S2 without murmur, rub or gallop. ABDOMEN: Soft, suprapubic tenderness, nondistended, normoactive bowel sounds, no guarding, no rebound, no hepatosplenomegaly, no masses. EXTREMITIES: 2+ pulses, warm, well-perfused, no edema. Laboratory Results - last 24 hr 07/15/19 07/15/19 07/16/19 16:27 21:44 05:42 POC Glucometer 201 241 215 07/16/19 11:37 POC Glucometer 147 Active Medications Generic Name Dose Route Start Last Admin Trade Name Freq PRN Reason Stop Dose Admin Acetaminophen 1,000 mg 07/14/19 02:10 Ofirmev Injection - IVPB Q6H PRN PAIN LEVEL 6-10 Fentanyl 1 patch 07/14/19 10:00 07/14/19 11:40 Duragesic 50mcg Patch - TD 1 patch Q72H EDUARDO Administration Sodium Chloride 1,000 mls @ 100 mls/hr 07/14/19 03:00 07/16/19 06:43 Normal Saline - IV 100 mls/hr ASDIR EDUARDO Administration Ceftriaxone Sodium 1 gm/ 50 mls @ 100 mls/hr 07/14/19 14:30 07/16/19 09:06 Dextrose IVPB 100 mls/hr DAILY EDUARDO Administration Protocol Insulin Aspart 1 vial 07/14/19 07:00 07/16/19 11:39 Novolog Vial Sliding Scale - SQ Not Given ACHS EDUARDO Protocol Miscellaneous 1 each 07/14/19 02:57 Duragesic Patch Waste TD PRN PRN PATCH REMOVAL Morphine Sulfate 2 mg 07/14/19 17:29 07/16/19 05:36 Morphine Sulfate IVPUSH 2 mg Q4H PRN Administration PAIN LEVEL 4 - 6 Ondansetron HCl 4 mg 07/14/19 16:26 07/14/19 17:47 Zofran Injection IVPUSH 4 mg Q6H PRN Administration NAUSEA AND/OR VOMITING Tamsulosin HCl 0.4 mg 07/14/19 08:30 07/16/19 08:42 Flomax - PO 0.4 mg DAILY@0830 EDUARDO Administration ASSESSMENT/PLAN: 58 year old female with a past medical history of NIDDM, chronic lumbar spin pain s/p L4-S1 fusion, spinal stimulator, nephrolithasis s/p stenting admitted for flank pain likely secondary to complicated UTI vs continued pain from R renal stone. Flank Pain likely secondary to UTI vs R renal stone UA showing significant hematuria Urine cx, blood culture negative so far Dr. Moya consulted Continue ceftriaxone and s/p Zosyn ID following, appreciate recommendations pain control with IV Tylenol lieberman in for possible retention DM based on home measurements needs tighter glucose control BGM ISS Back Pain chronic continue fentanyl patch FEN NS at 100cc/hr NPO pending possible intervention Monitor lytes Prophylaxis SCDs pending possible intervention Code full code Visit type - Emergency Visit Emergency Visit: Yes ED Registration Date: 07/14/19 Care time: The patient presented to the Emergency Department on the above date and was hospitalized for further evaluation of their emergent condition. - New Patient This patient is new to me today: Yes Date on this admission: 07/16/19 - Critical Care Critical Care patient: No - Discharge Referral Referred to [facility] Med P.C.: No ATTENDING PHYSICIAN STATEMENT I saw and evaluated the patient. I reviewed the resident's note and discussed the case with the resident. I agree with the resident's findings and plan as documented. SUBJECTIVE: OBJECTIVE: ASSESSMENT AND PLAN:
[2019-07-16] MEDS ORDERED: INSULIN (NOVOLOG) ASPART 100 UNITS/ML 10ML VIAL ONE (16:19)
--- NOTE | 2019-07-16 20:29 | PN ---
Teaching Attending Note Name of Resident: Seble Marshall ATTENDING PHYSICIAN STATEMENT I reviewed the resident's note and discussed the case with the resident. I agree with the resident's findings and plan as documented. SUBJECTIVE: Patient is c/o having right sided back pain. OBJECTIVE: Vital Signs Temperature 97.8 F 07/16/19 18:05 Pulse Rate 66 07/16/19 18:05 Respiratory Rate 20 07/16/19 18:05 Blood Pressure 122/74 07/16/19 18:05 O2 Sat by Pulse Oximetry (%) 99 07/14/19 21:00 GENERAL: The patient is awake, alert, and fully oriented, in no acute distress. HEAD: Normal with no signs of trauma. EYES: PERRL, extraocular movements intact, sclera anicteric, conjunctiva clear. ENT: Ears normal, oropharynx clear without exudates, moist mucous membranes. NECK: Trachea midline, full range of motion, supple. LUNGS: Breath sounds equal, clear to auscultation bilaterally, no wheezes, no crackles, no accessory muscle use. HEART: Regular rate and rhythm, S1, S2 without murmur, rub or gallop. ABDOMEN: Soft, NT,ND, normoactive bowel sounds, no guarding, no rebound, no hepatosplenomegaly, no masses. EXTREMITIES: 2+ pulses, warm, well-perfused, no edema. NEUROLOGICAL: Cranial nerves II through XII grossly intact. Normal speech, gait not observed. PSYCH: Normal mood, normal affect. SKIN: Warm, dry, normal turgor, no rashes or lesions noted : positive for lieberman CBCD WBC 9.5 K/mm3 (4.0-10.0) 07/15/19 08:39 RBC 3.76 M/mm3 (3.60-5.2) 07/15/19 08:39 Hgb 11.9 GM/dL (10.7-15.3) 07/15/19 08:39 Hct 35.5 % (32.4-45.2) 07/15/19 08:39 MCV 94.5 fl (80-96) 07/15/19 08:39 MCHC 33.5 g/dl (32.0-36.0) 07/15/19 08:39 RDW 12.8 % (11.6-15.6) 07/15/19 08:39 Plt Count 296 K/MM3 (134-434) 07/15/19 08:39 MPV 8.5 fl (7.5-11.1) 07/15/19 08:39 CMP Sodium 142 mmol/L (136-145) 07/15/19 08:39 Potassium 3.8 mmol/L (3.5-5.1) 07/15/19 08:39 Chloride 112 mmol/L (98-107) H 07/15/19 08:39 Carbon Dioxide 25 mmol/L (21-32) 07/15/19 08:39 Anion Gap 5 MMOL/L (8-16) L 07/15/19 08:39 BUN 5.5 mg/dL (7-18) L 07/15/19 08:39 Creatinine 0.6 mg/dL (0.55-1.3) 07/15/19 08:39 Random Glucose 127 mg/dL (74-106) H 07/15/19 08:39 Calcium 8.7 mg/dL (8.5-10.1) 07/15/19 08:39 Total Bilirubin 1.2 mg/dL (0.2-1) H 07/15/19 08:39 AST 18 U/L (15-37) 07/15/19 08:39 ALT 32 U/L (13-61) 07/15/19 08:39 Alkaline Phosphatase 71 U/L (45-117) 07/15/19 08:39 Total Protein 6.4 g/dl (6.4-8.2) 07/15/19 08:39 Albumin 3.1 g/dl (3.4-5.0) L 07/15/19 08:39 Current Medications Generic Name Dose Route Start Last Admin Trade Name Freq PRN Reason Stop Dose Admin Acetaminophen 1,000 mg 07/14/19 02:10 Ofirmev Injection - IVPB Q6H PRN PAIN LEVEL 6-10 Fentanyl 1 patch 07/14/19 10:00 07/14/19 11:40 Duragesic 50mcg Patch - TD 1 patch Q72H EDUARDO Administration Sodium Chloride 1,000 mls @ 100 mls/hr 07/14/19 03:00 07/16/19 06:43 Normal Saline - IV 100 mls/hr ASDIR EDUARDO Administration Ceftriaxone Sodium 1 gm/ 50 mls @ 100 mls/hr 07/14/19 14:30 07/16/19 09:06 Dextrose IVPB 100 mls/hr DAILY [facility] Administration Protocol Insulin Aspart 1 vial 07/14/19 07:00 07/16/19 16:34 Novolog Vial Sliding Scale - SQ 2 units ACHS [facility] Administration Protocol Miscellaneous 1 each 07/14/19 02:57 Duragesic Patch Waste TD PRN PRN PATCH REMOVAL Morphine Sulfate 2 mg 07/14/19 17:29 07/16/19 16:24 Morphine Sulfate IVPUSH 2 mg Q4H PRN Administration PAIN LEVEL 4 - 6 Ondansetron HCl 4 mg 07/14/19 16:26 07/14/19 17:47 Zofran Injection IVPUSH 4 mg Q6H PRN Administration NAUSEA AND/OR VOMITING Tamsulosin HCl 0.4 mg 07/14/19 08:30 07/16/19 08:42 Flomax - PO 0.4 mg DAILY@0830 [facility] Administration Home Medications Medication Instructions Recorded Oxycodone HCl/Acetaminophen 1 each PO Q6H PRN 07/06/19 [Oxycodone-Acetaminophen 10-325] Fentanyl 50 mcg TD Q72H 07/07/19 Cephalexin [Keflex] 500 mg PO Q12H #14 capsule 07/08/19 Metformin HCl [Glucophage] 500 mg PO BID #30 tablet 07/08/19 Miscellaneous Medical Supply 1 each ASDIR #1 kit 07/08/19 [Glucometer Device] Miscellaneous Medical Supply 1 each ASDIR #1 box 07/08/19 [Glucometer Test Strips #100] Miscellaneous Medical Supply 1 each ASDIR #1 box 07/08/19 [Lancets] Tamsulosin HCl [Flomax] 0.4 mg PO DAILY #14 capsule 07/08/19 Microbiology 07/13/19 23:00 Blood - Peripheral Venous Blood Culture - Preliminary NO GROWTH OBTAINED AFTER 48 HOURS, INCUBATION TO CONTINUE FOR 3 DAYS. 07/13/19 23:00 Blood - Peripheral Venous Blood Culture - Preliminary NO GROWTH OBTAINED AFTER 48 HOURS, INCUBATION TO CONTINUE FOR 3 DAYS. 07/14/19 12:05 Urine - Urine Lieberman Urine Culture - Final NO GROWTH OBTAINED 07/13/19 21:40 Urine - Urine Clean Catch Urine Culture - Final Corynebacterium Species CT abdomen and Pelvis: Kidneys: right kidney shows double pigtail catheter in place with the proximal pigtail in the right kidney in the disc of the bladder. No hyronephrosis seen, previosly seen 10mm calculus now appears in the infundubilum. ASSESSMENT AND PLAN: Patient is a 58 year old female with a PMHx of T2DM, chronic lumbar spin pain s/ p L4-S1 fusion, spinal stimulator, nephrolithasis s/p right ureteral stenting on 07/07/2019 presented with flank pain due to having complicated UTI /infected ureteral stent. # Acute UTI s/p stenting on 07/07/2019 due to having hydronephrosis with nephrolithiasis continue IV abx, discussed with , suggested repeat the CT scan without contrast, the report is pending. #T2DM: SS with coverage #Hx of chronic Back Pain with on spinal stimulator: on Fentanyl patch with stimulator DVT PX: SCDs full code
[2019-07-17] MEDS: SODIUM CHLORIDE 1,000 ML IV SCH ×2 (06:01→23:44)
[2019-07-17] MEDS: morphine SULFATE 4 MG/ML VIAL IVPUSH PRN ×2 (06:02→15:03)
[2019-07-17] MEDS: INSULIN SLIDING SCALE (NOVOLOG) 1 VIAL SQ SCH ×4 (06:07→22:09)
[2019-07-17 07:08] LABS: HEMOGLOBIN 11.6 GM/dL (10.7-15.3); MCH 31.2 pg (25.7-33.7); MCHC 33.2 g/dl (32.0-36.0); MEAN CELL VOLUME 94.1 fl (80-96); MEAN PLT VOLUME 8.3 fl (7.5-11.1); PLATELET COUNT 277 K/MM3 (134-434); RBC 3.72 M/mm3 (3.60-5.2); RDW 12.9 % (11.6-15.6); WHITE BLOOD COUNT 9.6 K/mm3 (4.0-10.0)
[2019-07-17 07:34] LABS: BLOOD UREA NITROGEN 8.5 mg/dL (7-18); CALCIUM 8.8 mg/dL (8.5-10.1); CREATININE 0.6 mg/dL (0.55-1.3); POTASSIUM 3.8 mmol/L (3.5-5.1)
[2019-07-17] MEDS ORDERED: cefTRIAXone SODIUM 1 GM VIAL ONE (09:19)
[2019-07-17] MEDS ORDERED: DEXTROSE 5%-WATER - 50 ML IVPB ONE (09:19)
[2019-07-17] MEDS: TAMSULOSIN HCL 0.4 MG CAP PO SCH (09:56)
[2019-07-17] MEDS: fentaNYL 50mcg/hr PATCH.TD72 TD SCH (09:57)
[2019-07-17] MEDS: CEFTRIAXONE 1 GM in DEXTROSE 5%-WATER - 50 ML IVPB SCH (09:58)
--- NOTE | 2019-07-17 09:58 | PN ---
Progress Note (short form) - Note Progress Note: still with lieberman, no hematuria originally right flank pain now some left flank pain awaiting urology f/u ct scan was repeated Vital Signs Period Temp Pulse Resp BP Sys/Thornton Pulse Ox Last 24 Hr 97.7 F-97.9 F 56-66 18-22 111-135/59-74 cor-rrr lungs clear abd soft,nt ext no edema lieberman clear urine CBC, BMP 07/17/19 05:30 07/17/19 05:30 Microbiology 07/13/19 23:00 Blood - Peripheral Venous Blood Culture - Preliminary NO GROWTH OBTAINED AFTER 72 HOURS, INCUBATION TO CONTINUE FOR 2 DAYS. 07/13/19 23:00 Blood - Peripheral Venous Blood Culture - Preliminary NO GROWTH OBTAINED AFTER 72 HOURS, INCUBATION TO CONTINUE FOR 2 DAYS. 07/14/19 12:05 Urine - Urine Lieberman Urine Culture - Final NO GROWTH OBTAINED 07/13/19 21:40 Urine - Urine Clean Catch Urine Culture - Final Corynebacterium Species ct scan pending imp/reccd stent placed last week hematuria and pain over last few days-resolved no fevers cultures negative repeat ct scan pending if okay with urology can d/c rocephin i Problem List - Problems (1) S/P ureteral stent placement Code(s): Z96.0 - PRESENCE OF UROGENITAL IMPLANTS (2) Hematuria Code(s): R31.9 - HEMATURIA, UNSPECIFIED (3) Nephrolithiasis Code(s): N20.0 - CALCULUS OF KIDNEY (4) UTI (urinary tract infection) Code(s): N39.0 - URINARY TRACT INFECTION, SITE NOT SPECIFIED
--- NOTE | 2019-07-17 16:14 | PN ---
Teaching Attending Note Name of Resident: Sol Jay ATTENDING PHYSICIAN STATEMENT I saw and evaluated the patient. I reviewed the resident's note and discussed the case with the resident. I agree with the resident's findings and plan as documented. SUBJECTIVE: Patient is c/o having back pain radiating to right groin area. OBJECTIVE: Vital Signs Temperature 98.1 F 07/17/19 10:00 Pulse Rate 60 07/17/19 10:00 Respiratory Rate 20 07/17/19 10:00 Blood Pressure 122/58 L 07/17/19 10:00 O2 Sat by Pulse Oximetry (%) 99 07/14/19 21:00 GENERAL: The patient is awake, alert, and fully oriented, in no acute distress. HEAD: Normal with no signs of trauma. EYES: PERRL, extraocular movements intact, sclera anicteric, conjunctiva clear. ENT: Ears normal, oropharynx clear without exudates, moist mucous membranes. NECK: Trachea midline, full range of motion, supple. LUNGS: Breath sounds equal, clear to auscultation bilaterally, no wheezes, no crackles, no accessory muscle use. HEART: Regular rate and rhythm, S1, S2 without murmur, rub or gallop. ABDOMEN: Soft, NT,ND, normoactive bowel sounds, no guarding, no rebound, no hepatosplenomegaly, no masses. EXTREMITIES: 2+ pulses, warm, well-perfused, no edema. NEUROLOGICAL: Cranial nerves II through XII grossly intact. Normal speech, gait not observed. PSYCH: Normal mood, normal affect. SKIN: Warm, dry, normal turgor, no rashes or lesions noted : positive for lieberman CBCD WBC 9.6 K/mm3 (4.0-10.0) 07/17/19 05:30 RBC 3.72 M/mm3 (3.60-5.2) 07/17/19 05:30 Hgb 11.6 GM/dL (10.7-15.3) 07/17/19 05:30 Hct 35.0 % (32.4-45.2) 07/17/19 05:30 MCV 94.1 fl (80-96) 07/17/19 05:30 MCHC 33.2 g/dl (32.0-36.0) 07/17/19 05:30 RDW 12.9 % (11.6-15.6) 07/17/19 05:30 Plt Count 277 K/MM3 (134-434) 07/17/19 05:30 MPV 8.3 fl (7.5-11.1) 07/17/19 05:30 CMP Sodium 142 mmol/L (136-145) 07/17/19 05:30 Potassium 3.8 mmol/L (3.5-5.1) 07/17/19 05:30 Chloride 110 mmol/L (98-107) H 07/17/19 05:30 Carbon Dioxide 24 mmol/L (21-32) 07/17/19 05:30 Anion Gap 8 MMOL/L (8-16) 07/17/19 05:30 BUN 8.5 mg/dL (7-18) 07/17/19 05:30 Creatinine 0.6 mg/dL (0.55-1.3) 07/17/19 05:30 Random Glucose 128 mg/dL (74-106) H 07/17/19 05:30 Calcium 8.8 mg/dL (8.5-10.1) 07/17/19 05:30 Total Bilirubin 1.2 mg/dL (0.2-1) H 07/15/19 08:39 AST 18 U/L (15-37) 07/15/19 08:39 ALT 32 U/L (13-61) 07/15/19 08:39 Alkaline Phosphatase 71 U/L (45-117) 07/15/19 08:39 Total Protein 6.4 g/dl (6.4-8.2) 07/15/19 08:39 Albumin 3.1 g/dl (3.4-5.0) L 07/15/19 08:39 Current Medications Generic Name Dose Route Start Last Admin Trade Name Freq PRN Reason Stop Dose Admin Acetaminophen 1,000 mg 07/14/19 02:10 Ofirmev Injection - IVPB Q6H PRN PAIN LEVEL 6-10 Fentanyl 1 patch 07/14/19 10:00 07/17/19 09:57 Duragesic 50mcg Patch - TD 1 patch Q72H EDUARDO Administration Sodium Chloride 1,000 mls @ 100 mls/hr 07/14/19 03:00 07/17/19 06:01 Normal Saline - IV 100 mls/hr ASDIR EDUARDO Administration Ceftriaxone Sodium 1 gm/ 50 mls @ 100 mls/hr 07/14/19 14:30 07/17/19 09:58 Dextrose IVPB 100 mls/hr DAILY [facility] Administration Protocol Insulin Aspart 1 vial 07/14/19 07:00 07/17/19 12:54 Novolog Vial Sliding Scale - SQ Not Given ACHS [facility] Protocol Miscellaneous 1 each 07/14/19 02:57 Duragesic Patch Waste TD PRN PRN PATCH REMOVAL Morphine Sulfate 2 mg 07/14/19 17:29 07/17/19 15:03 Morphine Sulfate IVPUSH 2 mg Q4H PRN Administration PAIN LEVEL 4 - 6 Ondansetron HCl 4 mg 07/14/19 16:26 07/14/19 17:47 Zofran Injection IVPUSH 4 mg Q6H PRN Administration NAUSEA AND/OR VOMITING Tamsulosin HCl 0.4 mg 07/14/19 08:30 07/17/19 09:56 Flomax - PO 0.4 mg DAILY@0830 [facility] Administration Home Medications Medication Instructions Recorded Oxycodone HCl/Acetaminophen 1 each PO Q6H PRN 07/06/19 [Oxycodone-Acetaminophen 10-325] Fentanyl 50 mcg TD Q72H 07/07/19 Metformin HCl [Glucophage] 500 mg PO BID #30 tablet 07/08/19 Miscellaneous Medical Supply 1 each ASDIR #1 kit 07/08/19 [Glucometer Device] Miscellaneous Medical Supply 1 each ASDIR #1 box 07/08/19 [Glucometer Test Strips #100] Miscellaneous Medical Supply 1 each ASDIR #1 box 07/08/19 [Lancets] Tamsulosin HCl [Flomax] 0.4 mg PO DAILY #14 capsule 07/08/19 Microbiology 07/13/19 23:00 Blood - Peripheral Venous Blood Culture - Preliminary NO GROWTH OBTAINED AFTER 72 HOURS, INCUBATION TO CONTINUE FOR 2 DAYS. 07/13/19 23:00 Blood - Peripheral Venous Blood Culture - Preliminary NO GROWTH OBTAINED AFTER 72 HOURS, INCUBATION TO CONTINUE FOR 2 DAYS. 07/14/19 12:05 Urine - Urine Lieberman Urine Culture - Final NO GROWTH OBTAINED 07/13/19 21:40 Urine - Urine Clean Catch Urine Culture - Final Corynebacterium Species CT abdomen and Pelvis: Kidneys: right kidney shows double pigtail catheter in place with the proximal pigtail in the right kidney in the disc of the bladder. No hyronephrosis seen, previosly seen 10mm calculus now appears in the infundubilum. ASSESSMENT AND PLAN: Patient is a 58 year old female with a PMHx of T2DM, chronic lumbar spin pain s/ p L4-S1 fusion, spinal stimulator, nephrolithasis s/p right ureteral stenting on 07/07/2019 presented with flank pain due to having complicated UTI /infected ureteral stent. # Acute UTI s/p stenting on 07/07/2019 due to having hydronephrosis with nephrolithiasis continue IV abx, voiding trial , with no urinary outpaut will palce the lieberman back, discussed with urologist , yuliana have a procedure done in am , will take her to or in am . repeat CT , the stent is in place. #T2DM: SS with coverage #Hx of chronic Back Pain with on spinal stimulator: on Fentanyl patch with stimulator DVT PX: SCDs full code
--- NOTE | 2019-07-17 17:00 | PN ---
Physical Exam: SUBJECTIVE: Patient seen and examined. Pt currently in no pain. Denied any more dysuria. OBJECTIVE: Vital Signs Period Temp Pulse Resp BP Sys/Thornton Pulse Ox Last 24 Hr 97.7 F-98.1 F 56-66 20-20 122-130/58-74 GENERAL: The patient is awake, alert, and fully oriented, in mild distress. HEAD: Normal with no signs of trauma. EYES: PERRL, extraocular movements intact, sclera anicteric, conjunctiva clear. No ptosis. LUNGS: Breath sounds equal, clear to auscultation bilaterally, no wheezes, no crackles, no accessory muscle use. HEART: Regular rate and rhythm, S1, S2 without murmur, rub or gallop. ABDOMEN: Soft, suprapubic tenderness, nondistended, normoactive bowel sounds, no guarding, no rebound, no hepatosplenomegaly, no masses. EXTREMITIES: 2+ pulses, warm, well-perfused, no edema. Laboratory Results - last 24 hr 07/16/19 07/17/19 07/17/19 21:16 05:30 05:30 WBC 9.6 RBC 3.72 Hgb 11.6 Hct 35.0 MCV 94.1 MCH 31.2 MCHC 33.2 RDW 12.9 Plt Count 277 MPV 8.3 Sodium 142 Potassium 3.8 Chloride 110 H Carbon Dioxide 24 Anion Gap 8 BUN 8.5 Creatinine 0.6 Est GFR (CKD-EPI)AfAm 117.27 Est GFR (CKD-EPI)NonAf 101.18 POC Glucometer 298 Random Glucose 128 H Calcium 8.8 07/17/19 07/17/19 07/17/19 06:06 11:48 16:49 WBC RBC Hgb Hct MCV MCH MCHC RDW Plt Count MPV Sodium Potassium Chloride Carbon Dioxide Anion Gap BUN Creatinine Est GFR (CKD-EPI)AfAm Est GFR (CKD-EPI)NonAf POC Glucometer 138 197 181 Random Glucose Calcium Active Medications Generic Name Dose Route Start Last Admin Trade Name Freq PRN Reason Stop Dose Admin Acetaminophen 1,000 mg 07/14/19 02:10 Ofirmev Injection - IVPB Q6H PRN PAIN LEVEL 6-10 Fentanyl 1 patch 07/14/19 10:00 07/17/19 09:57 Duragesic 50mcg Patch - TD 1 patch Q72H EDUARDO Administration Sodium Chloride 1,000 mls @ 100 mls/hr 07/14/19 03:00 07/17/19 06:01 Normal Saline - IV 100 mls/hr ASDIR EDUARDO Administration Ceftriaxone Sodium 1 gm/ 50 mls @ 100 mls/hr 07/14/19 14:30 07/17/19 09:58 Dextrose IVPB 100 mls/hr DAILY [facility] Administration Protocol Insulin Aspart 1 vial 07/14/19 07:00 07/17/19 12:54 Novolog Vial Sliding Scale - SQ Not Given ACHS [facility] Protocol Miscellaneous 1 each 07/14/19 02:57 Duragesic Patch Waste TD PRN PRN PATCH REMOVAL Morphine Sulfate 2 mg 07/14/19 17:29 07/17/19 15:03 Morphine Sulfate IVPUSH 2 mg Q4H PRN Administration PAIN LEVEL 4 - 6 Ondansetron HCl 4 mg 07/14/19 16:26 07/14/19 17:47 Zofran Injection IVPUSH 4 mg Q6H PRN Administration NAUSEA AND/OR VOMITING Tamsulosin HCl 0.4 mg 07/14/19 08:30 07/17/19 09:56 Flomax - PO 0.4 mg DAILY@0830 [facility] Administration ASSESSMENT/PLAN: ASSESSMENT/PLAN: 58 year old female with a past medical history of NIDDM, chronic lumbar spin pain s/p L4-S1 fusion, spinal stimulator, nephrolithasis s/p stenting admitted for flank pain likely secondary to complicated UTI vs continued pain from R renal stone. Flank Pain likely secondary to UTI vs R renal stone Urine cx, blood culture negative final Dr. Moya will see pt tomorrow Continue ceftriaxone pain control with morphine 2mg Q4h lieberman in for possible retention abdominal CT with no changes from admission one DM based on home measurements needs tighter glucose control BGM ISS Back Pain chronic continue fentanyl patch FEN NS at 100cc/hr Monitor lytes Prophylaxis SCDs for possible intervention Code full code Visit type - Emergency Visit Emergency Visit: Yes ED Registration Date: 07/14/19 Care time: The patient presented to the Emergency Department on the above date and was hospitalized for further evaluation of their emergent condition. - New Patient This patient is new to me today: No - Critical Care Critical Care patient: No - Discharge Referral Referred to [facility] Med [facility].C[facility] No ATTENDING PHYSICIAN STATEMENT I saw and evaluated the patient. I reviewed the resident's note and discussed the case with the resident. I agree with the resident's findings and plan as documented. SUBJECTIVE: OBJECTIVE: ASSESSMENT AND PLAN:
[2019-07-17] MEDS ORDERED: PT OWN MED DRAWER 7, Y5N ONE (17:03)
--- NOTE | 2019-07-17 17:42 | PN ---
Progress Note (short form) - Note Progress Note: afebrile c/o stent pain lieberman in place with clear urine stent in place on CT will d/c lieberman lithotripsy plan with Dr Moya
[2019-07-17] MEDS: ACETAMINOPHEN 1000 MG/100 ML VIAL (NON FORMULARY) IVPB PRN (23:43)
[2019-07-18] MEDS: INSULIN SLIDING SCALE (NOVOLOG) 1 VIAL SQ SCH ×4 (06:05→21:59)
[2019-07-18 07:03] LABS: BASO % 0.5 % (0-2.0); EOS % 3.6 % (0-4.5); HEMOGLOBIN 11.2 GM/dL (10.7-15.3); LYMPH % 38.9 % (8-40); MCH 31.7 pg (25.7-33.7); MCHC 33.8 g/dl (32.0-36.0); MEAN CELL VOLUME 93.7 fl (80-96); MEAN PLT VOLUME 8.1 fl (7.5-11.1); MONO % 5.4 % (3.8-10.2); NEUT % 51.6 % (42.8-82.8); PLATELET COUNT 292 K/MM3 (134-434); RBC 3.52 M/mm3 (3.60-5.2); RDW 12.9 % (11.6-15.6); WHITE BLOOD COUNT 10.1 K/mm3 (4.0-10.0)
[2019-07-18] MEDS ORDERED: PT OWN MED DRAWER 7, Y5N ONE (07:09)
[2019-07-18 07:19] LABS: BLOOD UREA NITROGEN 6.7 mg/dL (7-18); CREATININE 0.6 mg/dL (0.55-1.3); POTASSIUM 3.8 mmol/L (3.5-5.1)
[2019-07-18] MEDS ORDERED: DEXTROSE 5%-WATER - 50 ML IVPB ONE (09:05)
[2019-07-18] MEDS ORDERED: cefTRIAXone SODIUM 1 GM VIAL ONE (09:05)
[2019-07-18] MEDS: CEFTRIAXONE 1 GM in DEXTROSE 5%-WATER - 50 ML IVPB SCH (09:08)
[2019-07-18] MEDS: TAMSULOSIN HCL 0.4 MG CAP PO SCH (09:08)
[2019-07-18] MEDS: SODIUM CHLORIDE 1,000 ML IV SCH ×2 (09:08→22:48)
--- NOTE | 2019-07-18 09:09 | PN ---
Teaching Attending Note Name of Resident: Sol Jay ATTENDING PHYSICIAN STATEMENT I saw and evaluated the patient. I reviewed the resident's note and discussed the case with the resident. I agree with the resident's findings and plan as documented. SUBJECTIVE: Patient continues to have a back pain. 08/10 as per patient. daughters at bedside. OBJECTIVE: Vital Signs Temperature 98.4 F 07/18/19 06:00 Pulse Rate 76 07/18/19 06:00 Respiratory Rate 20 07/17/19 18:00 Blood Pressure 133/71 07/18/19 06:00 O2 Sat by Pulse Oximetry (%) 99 07/14/19 21:00 GENERAL: The patient is awake, alert, and fully oriented, in no acute distress. HEAD: Normal with no signs of trauma. EYES: PERRL, extraocular movements intact, sclera anicteric, conjunctiva clear. ENT: Ears normal, oropharynx clear without exudates, moist mucous membranes. NECK: Trachea midline, full range of motion, supple. LUNGS: Breath sounds equal, clear to auscultation bilaterally, no wheezes, no crackles, no accessory muscle use. HEART: Regular rate and rhythm, S1, S2 without murmur, rub or gallop. ABDOMEN: Soft, NT,ND, normoactive bowel sounds, no guarding, no rebound, no hepatosplenomegaly, no masses. EXTREMITIES: 2+ pulses, warm, well-perfused, no edema. NEUROLOGICAL: Cranial nerves II through XII grossly intact. Normal speech, gait not observed. PSYCH: Normal mood, normal affect. SKIN: Warm, dry, normal turgor, no rashes or lesions noted CBCD WBC 10.1 K/mm3 (4.0-10.0) H 07/18/19 06:15 RBC 3.52 M/mm3 (3.60-5.2) L 07/18/19 06:15 Hgb 11.2 GM/dL (10.7-15.3) 07/18/19 06:15 Hct 33.0 % (32.4-45.2) 07/18/19 06:15 MCV 93.7 fl (80-96) 07/18/19 06:15 MCHC 33.8 g/dl (32.0-36.0) 07/18/19 06:15 RDW 12.9 % (11.6-15.6) 07/18/19 06:15 Plt Count 292 K/MM3 (134-434) 07/18/19 06:15 MPV 8.1 fl (7.5-11.1) 07/18/19 06:15 CMP Sodium 144 mmol/L (136-145) 07/18/19 06:15 Potassium 3.8 mmol/L (3.5-5.1) 07/18/19 06:15 Chloride 112 mmol/L (98-107) H 07/18/19 06:15 Carbon Dioxide 26 mmol/L (21-32) 07/18/19 06:15 Anion Gap 6 MMOL/L (8-16) L 07/18/19 06:15 BUN 6.7 mg/dL (7-18) L 07/18/19 06:15 Creatinine 0.6 mg/dL (0.55-1.3) 07/18/19 06:15 Random Glucose 132 mg/dL (74-106) H 07/18/19 06:15 Calcium 9.0 mg/dL (8.5-10.1) 07/18/19 06:15 Total Bilirubin 1.2 mg/dL (0.2-1) H 07/15/19 08:39 AST 18 U/L (15-37) 07/15/19 08:39 ALT 32 U/L (13-61) 07/15/19 08:39 Alkaline Phosphatase 71 U/L (45-117) 07/15/19 08:39 Total Protein 6.4 g/dl (6.4-8.2) 07/15/19 08:39 Albumin 3.1 g/dl (3.4-5.0) L 07/15/19 08:39 Current Medications Generic Name Dose Route Start Last Admin Trade Name Freq PRN Reason Stop Dose Admin Acetaminophen 1,000 mg 07/14/19 02:10 07/17/19 23:43 Ofirmev Injection - IVPB 1,000 mg Q6H PRN Administration PAIN LEVEL 6-10 Fentanyl 1 patch 07/14/19 10:00 07/17/19 09:57 Duragesic 50mcg Patch - TD 1 patch Q72H EDUARDO Administration Sodium Chloride 1,000 mls @ 100 mls/hr 07/14/19 03:00 07/18/19 09:08 Normal Saline - IV 100 mls/hr ASDIR EDUARDO Administration Ceftriaxone Sodium 1 gm/ 50 mls @ 100 mls/hr 07/14/19 14:30 07/18/19 09:08 Dextrose IVPB 100 mls/hr DAILY [facility] Administration Protocol Insulin Aspart 1 vial 07/14/19 07:00 07/18/19 06:05 Novolog Vial Sliding Scale - SQ Not Given ACHS [facility] Protocol Miscellaneous 1 each 07/14/19 02:57 Duragesic Patch Waste TD PRN PRN PATCH REMOVAL Ondansetron HCl 4 mg 07/14/19 16:26 07/14/19 17:47 Zofran Injection IVPUSH 4 mg Q6H PRN Administration NAUSEA AND/OR VOMITING Tamsulosin HCl 0.4 mg 07/14/19 08:30 07/18/19 09:08 Flomax - PO 0.4 mg DAILY@0830 [facility] Administration Home Medications Medication Instructions Recorded Oxycodone HCl/Acetaminophen 1 each PO Q6H PRN 07/06/19 [Oxycodone-Acetaminophen 10-325] Fentanyl 50 mcg TD Q72H 07/07/19 Metformin HCl [Glucophage] 500 mg PO BID #30 tablet 07/08/19 Miscellaneous Medical Supply 1 each ASDIR #1 kit 07/08/19 [Glucometer Device] Miscellaneous Medical Supply 1 each ASDIR #1 box 07/08/19 [Glucometer Test Strips #100] Miscellaneous Medical Supply 1 each ASDIR #1 box 07/08/19 [Lancets] Tamsulosin HCl [Flomax] 0.4 mg PO DAILY #14 capsule 07/08/19 07/13/19 23:00 Blood - Peripheral Venous Blood Culture - Preliminary NO GROWTH OBTAINED AFTER 72 HOURS, INCUBATION TO CONTINUE FOR 2 DAYS. 07/13/19 23:00 Blood - Peripheral Venous Blood Culture - Preliminary NO GROWTH OBTAINED AFTER 72 HOURS, INCUBATION TO CONTINUE FOR 2 DAYS. 07/14/19 12:05 Urine - Urine Lieberman Urine Culture - Final NO GROWTH OBTAINED 07/13/19 21:40 Urine - Urine Clean Catch Urine Culture - Final Corynebacterium Species CT abdomen and Pelvis: Kidneys: right kidney shows double pigtail catheter in place with the proximal pigtail in the right kidney in the disc of the bladder. No hyronephrosis seen, previosly seen 10mm calculus now appears in the infundubilum. ASSESSMENT AND PLAN: Patient is a 58 year old female with a PMHx of T2DM, chronic lumbar spin pain s/ p L4-S1 fusion, spinal stimulator, nephrolithasis s/p right ureteral stenting on 07/07/2019 presented with flank pain due to having complicated UTI /infected ureteral stent. # Acute UTI s/p stenting on 07/07/2019 due to having hydronephrosis with nephrolithiasis continue IV abx day # 5, continue post lithotrispy if needed, patient is urinating now, s/p lieberman catheter since was not urinating. discussed with urologist on a daily basis , will go for the procedure in am as per Dr. Willis. repeat CT: the stent is in place. #T2DM: SS with coverage #Hx of chronic Back Pain with on spinal stimulator: on Fentanyl patch with stimulator DVT PX: SCDs full code going for lithotripsy in am , npo after midnight
[2019-07-18] MEDS: ACETAMINOPHEN 1000 MG/100 ML VIAL (NON FORMULARY) IVPB PRN (10:24)
--- NOTE | 2019-07-18 15:53 | PN ---
Physical Exam: SUBJECTIVE: Patient seen and examined. pt has been urinating in toilet OBJECTIVE: Vital Signs Period Temp Pulse Resp BP Sys/Thornton Pulse Ox Last 24 Hr 97.7 F-98.4 F 64-76 20 118-134/60-71 GENERAL: The patient is awake, alert, and fully oriented, in mild distress. HEAD: Normal with no signs of trauma. EYES: PERRL, extraocular movements intact, sclera anicteric, conjunctiva clear. No ptosis. LUNGS: Breath sounds equal, clear to auscultation bilaterally, no wheezes, no crackles, no accessory muscle use. HEART: Regular rate and rhythm, S1, S2 without murmur, rub or gallop. ABDOMEN: Soft, suprapubic tenderness, nondistended, normoactive bowel sounds, no guarding, no rebound, no hepatosplenomegaly, no masses. EXTREMITIES: 2+ pulses, warm, well-perfused, no edema. Laboratory Results - last 24 hr 07/17/19 07/17/19 07/18/19 16:49 20:49 05:36 WBC RBC Hgb Hct MCV MCH MCHC RDW Plt Count MPV Absolute Neuts (auto) Neutrophils % Lymphocytes % Monocytes % Eosinophils % Basophils % Nucleated RBC % Sodium Potassium Chloride Carbon Dioxide Anion Gap BUN Creatinine Est GFR (CKD-EPI)AfAm Est GFR (CKD-EPI)NonAf POC Glucometer 181 291 135 Random Glucose Calcium 07/18/19 07/18/19 07/18/19 06:15 06:15 11:21 WBC 10.1 H RBC 3.52 L Hgb 11.2 Hct 33.0 MCV 93.7 MCH 31.7 MCHC 33.8 RDW 12.9 Plt Count 292 MPV 8.1 Absolute Neuts (auto) 5.2 Neutrophils % 51.6 Lymphocytes % 38.9 Monocytes % 5.4 Eosinophils % 3.6 Basophils % 0.5 Nucleated RBC % 0 Sodium 144 Potassium 3.8 Chloride 112 H Carbon Dioxide 26 Anion Gap 6 L BUN 6.7 L Creatinine 0.6 Est GFR (CKD-EPI)AfAm 117.27 Est GFR (CKD-EPI)NonAf 101.18 POC Glucometer 168 Random Glucose 132 H Calcium 9.0 Active Medications Generic Name Dose Route Start Last Admin Trade Name Freq PRN Reason Stop Dose Admin Acetaminophen 1,000 mg 07/14/19 02:10 07/18/19 10:24 Ofirmev Injection - IVPB 1,000 mg Q6H PRN Administration PAIN LEVEL 6-10 Fentanyl 1 patch 07/14/19 10:00 07/17/19 09:57 Duragesic 50mcg Patch - TD 1 patch Q72H EDUARDO Administration Sodium Chloride 1,000 mls @ 100 mls/hr 07/14/19 03:00 07/18/19 09:08 Normal Saline - IV 100 mls/hr ASDIR EDUARDO Administration Ceftriaxone Sodium 1 gm/ 50 mls @ 100 mls/hr 07/14/19 14:30 07/18/19 09:08 Dextrose IVPB 100 mls/hr DAILY [facility] Administration Protocol Insulin Aspart 1 vial 07/14/19 07:00 07/18/19 13:07 Novolog Vial Sliding Scale - SQ Not Given ACHS [facility] Protocol Miscellaneous 1 each 07/14/19 02:57 Duragesic Patch Waste TD PRN PRN PATCH REMOVAL Ondansetron HCl 4 mg 07/14/19 16:26 07/14/19 17:47 Zofran Injection IVPUSH 4 mg Q6H PRN Administration NAUSEA AND/OR VOMITING Tamsulosin HCl 0.4 mg 07/14/19 08:30 07/18/19 09:08 Flomax - PO 0.4 mg DAILY@0830 [facility] Administration ASSESSMENT/PLAN: 58 year old female with a past medical history of NIDDM, chronic lumbar spin pain s/p L4-S1 fusion, spinal stimulator, nephrolithasis s/p stenting admitted for flank pain likely secondary to complicated UTI vs continued pain from R renal stone. Flank Pain likely secondary to UTI vs R renal stone scheduled for OR tomorrow with Uro at 11 am for lithotripsy and stent exchange NPO after midnight, PT/PTT, INR, CBC, CMP ordered Urine cx, blood culture negative final Continue ceftriaxone pain control with morphine 2mg Q4h abdominal CT with no changes from admission one DM based on home measurements needs tighter glucose control BGM ISS Back Pain chronic continue fentanyl patch FEN NS at 100cc/hr Monitor lytes Prophylaxis SCDs for possible intervention Code full code Visit type - Emergency Visit Emergency Visit: Yes ED Registration Date: 07/14/19 Care time: The patient presented to the Emergency Department on the above date and was hospitalized for further evaluation of their emergent condition. - New Patient This patient is new to me today: No - Critical Care Critical Care patient: No - Discharge Referral Referred to [facility] No ATTENDING PHYSICIAN STATEMENT I saw and evaluated the patient. I reviewed the resident's note and discussed the case with the resident. I agree with the resident's findings and plan as documented. SUBJECTIVE: OBJECTIVE: ASSESSMENT AND PLAN:
[2019-07-18] MEDS ORDERED: oxyCODONE HCL 5 MG TABLET PO ONE ×2 (15:58→22:02)
--- NOTE | 2019-07-18 16:54 | PN ---
Progress Note (short form) - Note Progress Note: for OR tomorrow (07/19/19)- ureteroscopic laser lithotripsy and stent exchange
[2019-07-19] MEDS: SODIUM CHLORIDE 1,000 ML IV SCH ×3 (03:21→18:35)
[2019-07-19] MEDS: INSULIN SLIDING SCALE (NOVOLOG) 1 VIAL SQ SCH ×4 (06:13→22:05)
[2019-07-19 08:23] LABS: BASO % 0.7 % (0-2.0); EOS % 3.6 % (0-4.5); LYMPH % 38.9 % (8-40); MCH 31.5 pg (25.7-33.7); MCHC 33.3 g/dl (32.0-36.0); MEAN CELL VOLUME 94.4 fl (80-96); MONO % 5.9 % (3.8-10.2); NEUT % 50.9 % (42.8-82.8); PLATELET COUNT 306 K/MM3 (134-434); WHITE BLOOD COUNT 9.2 K/mm3 (4.0-10.0)
[2019-07-19 08:37] LABS: INR 1.14 (0.83-1.09); PROTHROMBIN TIME (PATIENT) 13.5 SEC (9.7-13.0)
[2019-07-19 08:39] LABS: ACTIVATED PTT 32.5 SECONDS (25.2-36.5)
[2019-07-19 08:53] LABS: ALBUMIN 2.9 g/dl (3.4-5.0); BILIRUBIN,TOTAL 0.6 mg/dL (0.2-1); BLOOD UREA NITROGEN 5.8 mg/dL (7-18); CALCIUM 8.7 mg/dL (8.5-10.1); CREATININE 0.6 mg/dL (0.55-1.3); POTASSIUM 3.8 mmol/L (3.5-5.1); TOT PROT 6.1 g/dl (6.4-8.2)
[2019-07-19] MEDS ORDERED: cefTRIAXone SODIUM 1 GM VIAL ONE (09:38)
[2019-07-19] MEDS ORDERED: DEXTROSE 5%-WATER - 50 ML IVPB ONE (09:38)
[2019-07-19] MEDS: CEFTRIAXONE 1 GM in DEXTROSE 5%-WATER - 50 ML IVPB SCH (09:46)
[2019-07-19] MEDS ORDERED: MORPHINE SULFATE 2 MG/ML VIAL IVPUSH ONE (10:40)
[2019-07-19] MEDS ORDERED: MORPHINE SULFATE 2 MG/ML VIAL ONE (10:43)
[2019-07-19] MEDS ORDERED: MIDAZOLAM HCL 2 MG/2 ML SINGLE DOSE VIAL ONE (11:37)
[2019-07-19] MEDS ORDERED: ROCURONIUM BROMIDE 50 MG/5 ML SYRINGE ONE (12:04)
[2019-07-19] MEDS ORDERED: KETOROLAC TROMETHAMINE 30 MG/1 ML VIAL ONE (12:25)
[2019-07-19] MEDS ORDERED: SUCCINYLCHOLINE CHLORIDE 200 MG/10 ML SYRINGE ONE (12:27)
[2019-07-19] MEDS ORDERED: PROMETHAZINE HCL 25 MG/1 ML VIAL ONE (12:53)
[2019-07-19] MEDS ORDERED: PROMETHAZINE HCL 25 MG/1 ML VIAL IVPUSH PRN (12:58)
[2019-07-19] MEDS ORDERED: SODIUM CHLORIDE 1,000 ML IV SCH (13:00)
[2019-07-19] MEDS ORDERED: ACETAMINOPHEN 1000 MG/100 ML VIAL (NON FORMULARY) IVPB PRN (13:24)
[2019-07-19] MEDS ORDERED: ONDANSETRON 4 MG/2 ML VIAL IVPUSH PRN (13:24)
[2019-07-19] MEDS ORDERED: FENTANYL PATCH WASTE MC PRN (13:24)
[2019-07-19] MEDS: TAMSULOSIN HCL 0.4 MG CAP PO SCH (14:57)
[2019-07-19] MEDS: IBUPROFEN 400 MG TABLET (FP) PO PRN (17:23)
--- NOTE | 2019-07-19 18:01 | PN ---
Physical Exam: SUBJECTIVE: Patient seen and examined. Pt is post op and have pain responsive to pain regimen OBJECTIVE: Vital Signs Period Temp Pulse Resp BP Sys/Thornton Pulse Ox Last 24 Hr 97.8 F-98.2 F 50-77 13-21 121-147/55-92 96-100 GENERAL: The patient is awake, alert, and fully oriented, in mild distress. HEAD: Normal with no signs of trauma. EYES: PERRL, extraocular movements intact, sclera anicteric, conjunctiva clear. No ptosis. LUNGS: Breath sounds equal, clear to auscultation bilaterally, no wheezes, no crackles, no accessory muscle use. HEART: Regular rate and rhythm, S1, S2 without murmur, rub or gallop. ABDOMEN: Soft, suprapubic tenderness, nondistended, normoactive bowel sounds, no guarding, no rebound, no hepatosplenomegaly, no masses. EXTREMITIES: 2+ pulses, warm, well-perfused, no edema. Laboratory Results - last 24 hr 07/18/19 07/19/19 07/19/19 21:24 06:05 06:20 WBC 9.2 RBC 3.50 L Hgb 11.0 Hct 33.0 MCV 94.4 MCH 31.5 MCHC 33.3 RDW 13.0 Plt Count 306 MPV 8.0 Absolute Neuts (auto) 4.7 Neutrophils % 50.9 Lymphocytes % 38.9 Monocytes % 5.9 Eosinophils % 3.6 Basophils % 0.7 Nucleated RBC % 0 PT with INR INR PTT (Actin FS) Sodium Potassium Chloride Carbon Dioxide Anion Gap BUN Creatinine Est GFR (CKD-EPI)AfAm Est GFR (CKD-EPI)NonAf POC Glucometer 225 147 Random Glucose Calcium Total Bilirubin AST ALT Alkaline Phosphatase Total Protein Albumin Blood Type Antibody Screen 07/19/19 07/19/19 07/19/19 06:20 06:20 07:50 WBC RBC Hgb Hct MCV MCH MCHC RDW Plt Count MPV Absolute Neuts (auto) Neutrophils % Lymphocytes % Monocytes % Eosinophils % Basophils % Nucleated RBC % PT with INR 13.50 H INR 1.14 H PTT (Actin FS) 32.5 Sodium 143 Potassium 3.8 Chloride 111 H Carbon Dioxide 25 Anion Gap 6 L BUN 5.8 L Creatinine 0.6 Est GFR (CKD-EPI)AfAm 117.27 Est GFR (CKD-EPI)NonAf 101.18 POC Glucometer Random Glucose 131 H Calcium 8.7 Total Bilirubin 0.6 AST 13 L ALT 27 Alkaline Phosphatase 67 Total Protein 6.1 L Albumin 2.9 L Blood Type A POSITIVE Antibody Screen Negative 07/19/19 07/19/19 11:06 16:40 WBC RBC Hgb Hct MCV MCH MCHC RDW Plt Count MPV Absolute Neuts (auto) Neutrophils % Lymphocytes % Monocytes % Eosinophils % Basophils % Nucleated RBC % PT with INR INR PTT (Actin FS) Sodium Potassium Chloride Carbon Dioxide Anion Gap BUN Creatinine Est GFR (CKD-EPI)AfAm Est GFR (CKD-EPI)NonAf POC Glucometer 180 183 Random Glucose Calcium Total Bilirubin AST ALT Alkaline Phosphatase Total Protein Albumin Blood Type Antibody Screen Active Medications Generic Name Dose Route Start Last Admin Trade Name Freq PRN Reason Stop Dose Admin Acetaminophen 1,000 mg 07/19/19 13:24 Ofirmev Injection - IVPB Q6H PRN PAIN LEVEL 6-10 Fentanyl 1 patch 07/20/19 10:00 Duragesic 50mcg Patch - TD Q72H [facility] Ceftriaxone Sodium 1 gm/ 50 mls @ 100 mls/hr 07/20/19 10:00 Dextrose IVPB DAILY [facility] Protocol Sodium Chloride 1,000 mls @ 100 mls/hr 07/19/19 13:24 Normal Saline - IV ASDIR [facility] Ibuprofen 400 mg 07/19/19 17:01 07/19/19 17:23 Motrin - PO 400 mg Q6H PRN Administration FEVER Insulin Aspart 1 vial 07/19/19 16:30 07/19/19 17:24 Novolog Vial Sliding Scale - SQ Not Given ACHS [facility] Protocol Miscellaneous 1 each 07/19/19 13:24 Duragesic Patch Waste TD PRN PRN PATCH REMOVAL Ondansetron HCl 4 mg 07/19/19 13:24 Zofran Injection IVPUSH Q6H PRN NAUSEA AND/OR VOMITING Promethazine HCl 12.5 mg 07/19/19 12:58 07/19/19 12:55 Phenergan Injection - IVPUSH 6.25 mg Q6H PRN Administration NAUSEA-FOR RESCUE AFTER 15 MIN Tamsulosin HCl 0.4 mg 07/20/19 08:30 Flomax - PO DAILY@0830 [facility] ASSESSMENT/PLAN: 58 year old female with a past medical history of NIDDM, chronic lumbar spin pain s/p L4-S1 fusion, spinal stimulator, nephrolithasis s/p stenting admitted for flank pain likely secondary to complicated UTI vs continued pain from R renal stone. Flank Pain likely secondary to UTI vs R renal stone went to OR for lithotripsy and stent exchange Continue ceftriaxone pain control with ibuprofen 400mg Q6h, fentanyl patch starting 07/20/19 DM based on home measurements needs tighter glucose control BGM ISS Back Pain chronic continue fentanyl patch FEN NS for fluids Monitor lytes Prophylaxis SCDs for possible intervention Code full code Visit type - Emergency Visit Emergency Visit: Yes ED Registration Date: 07/14/19 Care time: The patient presented to the Emergency Department on the above date and was hospitalized for further evaluation of their emergent condition. - New Patient This patient is new to me today: No - Critical Care Critical Care patient: No - Discharge Referral Referred to [facility] Med [facility].C[facility] No ATTENDING PHYSICIAN STATEMENT I saw and evaluated the patient. I reviewed the resident's note and discussed the case with the resident. I agree with the resident's findings and plan as documented. SUBJECTIVE: OBJECTIVE: ASSESSMENT AND PLAN:
--- NOTE | 2019-07-19 20:17 | PN ---
Teaching Attending Note Name of Resident: Soraya Bentley ATTENDING PHYSICIAN STATEMENT I saw and evaluated the patient. I reviewed the resident's note and discussed the case with the resident. I agree with the resident's findings and plan as documented. SUBJECTIVE: no fever or chills. seen before procedure. R flank pain OBJECTIVE: NAD HEENT: MMM CV: RRR, no MRG Lungs: CTAB ABd: soft, minimalNT, ND, NL BS . No CVA tenderness . Ext: No edema or erythema. ASSESSMENT AND PLAN: 58 y/o lady with remote h/o DM II, chronic back pain, CCY, L spine fusion, and recent UTI with stent placement , who presented with R flank pain 1-R flank pain. s/p lithotripsy and exchange of stent ( procedure note pending ) - cont IVF - cont fentanyl and add her home oxycodone -cont flomax 2- h/o DM II,SSI . will resume metformin at dc 3- Chronic back pain: cont fentanyl and oxy dc home in am
--- NOTE | 2019-07-19 20:45 | OP ---
DATE OF OPERATION: 07/19/2019 PREOPERATIVE DIAGNOSIS: Right renal calculus. POSTOPERATIVE DIAGNOSIS: Right renal calculus. PROCEDURE: Right ureteroscopy, laser lithotripsy, and stent removal. SURGEON: Sal Moya MD PATIENT SERVICES REP: None. SPECIMENS: Old stent. ESTIMATED BLOOD LOSS: None. FINDINGS: Stone in the mid pole of the right kidney. PREOPERATIVE INDICATIONS: Patient is a 58-year-old female who came to the hospital with obstructing stone a couple weeks ago, and stent was placed. She now comes back for laser lithotripsy. OPERATION: Patient was brought to the OR, placed on the table in supine position, given general anesthesia and IV antibiotics, and placed in the modified lithotomy position. The groin was prepped and draped sterilely. Cystoscopy was performed. The stent was seen emerging from the right ureteral orifice. This was grasped and pulled out to the urethral meatus, and a wire was placed up to the right kidney. Over a 10-Cuban dual-lumen catheter, a second wire was placed as well, and then, a flexible ureteroscope was passed over a wire. The kidney was examined, and the 10-mm stone previously seen was in the mid-pole calyx. Stone was broken up into small pieces of sand using holmium laser fiber 200 microns in size. No other stones were seen throughout the kidney or at any place in the ureter. Scope was removed. The patient was woken up. SAL MOYA M.D. [id number]
[2019-07-19] MEDS: oxyCODONE HCL 5 MG TABLET PO PRN (22:04)
[2019-07-20] MEDS: SODIUM CHLORIDE 1,000 ML IV SCH ×3 (04:54→21:51)
[2019-07-20] MEDS: oxyCODONE HCL 5 MG TABLET PO PRN ×3 (04:54→21:52)
[2019-07-20] MEDS: INSULIN SLIDING SCALE (NOVOLOG) 1 VIAL SQ SCH ×4 (06:46→21:51)
[2019-07-20] MEDS ORDERED: PT OWN MED DRAWER 7, Y5N ONE (06:55)
[2019-07-20] MEDS ORDERED: INSULIN (NOVOLOG) ASPART 100 UNITS/ML 10ML VIAL ONE ×2 (06:56→21:41)
[2019-07-20 08:30] LABS: BASO % 0.9 % (0-2.0); HEMATOCRIT 36.1 % (32.4-45.2); HEMOGLOBIN 11.7 GM/dL (10.7-15.3); LYMPH % 11.2 % (8-40); MCH 30.8 pg (25.7-33.7); MCHC 32.3 g/dl (32.0-36.0); MEAN CELL VOLUME 95.4 fl (80-96); MEAN PLT VOLUME 8.7 fl (7.5-11.1); MONO % 4.5 % (3.8-10.2); NEUT % 83.4 % (42.8-82.8); PLATELET COUNT 309 K/MM3 (134-434); RBC 3.79 M/mm3 (3.60-5.2); RDW 12.9 % (11.6-15.6); WHITE BLOOD COUNT 12.3 K/mm3 (4.0-10.0)
[2019-07-20 08:50] LABS: ALBUMIN 3.2 g/dl (3.4-5.0); BILIRUBIN,TOTAL 0.6 mg/dL (0.2-1); BLOOD UREA NITROGEN 9.6 mg/dL (7-18); CALCIUM 8.9 mg/dL (8.5-10.1); CREATININE 0.9 mg/dL (0.55-1.3); MAGNESIUM 1.9 mg/dL (1.8-2.4); PHOSPHOROUS 2.2 mg/dL (2.5-4.9); POTASSIUM 4.2 mmol/L (3.5-5.1); TOT PROT 7.1 g/dl (6.4-8.2)
[2019-07-20] MEDS ORDERED: NAPH,MB-DB/K PH,MBDB POWDER PACKET PO ONE (09:15)
[2019-07-20] MEDS ORDERED: CEFTRIAXONE 1 GM in DEXTROSE 5%-WATER - 50 ML IVPB SCH (10:00)
[2019-07-20] MEDS ORDERED: DEXTROSE 5%-WATER - 50 ML IVPB ONE (10:04)
[2019-07-20] MEDS ORDERED: cefTRIAXone SODIUM 1 GM VIAL ONE (10:04)
[2019-07-20] MEDS: TAMSULOSIN HCL 0.4 MG CAP PO SCH (10:07)
[2019-07-20] MEDS: IBUPROFEN 400 MG TABLET (FP) PO PRN (10:08)
[2019-07-20] MEDS: fentaNYL 50mcg/hr PATCH.TD72 TD SCH (10:09)
[2019-07-20] MEDS: FENTANYL PATCH WASTE TD PRN (10:15)
--- NOTE | 2019-07-20 17:34 | PN ---
Teaching Attending Note Name of Resident: Soraya Bentley ATTENDING PHYSICIAN STATEMENT I saw and evaluated the patient. I reviewed the resident's note and discussed the case with the resident. I agree with the resident's findings and plan as documented. SUBJECTIVE: Suprapubic pain , hematuria, and dysuria after the procedure . diarrhea x 6 time OBJECTIVE: NAD HEENT: MMM CV: RRR, no MRG Lungs: CTAB ABd: soft, minimal, suprapubic tenderness, ND, NL BS. Ext: No edema or erythema. ASSESSMENT AND PLAN: 58 y/o lady with remote h/o DM II, chronic back pain, CCY, L spine fusion, and recent UTI with stent placement , who presented with R flank pain 1-R flank pain. s/p lithotripsy and exchange of stent 07/19 - cont IVF - cont fentanyl and oxy - cont flomax - noted patietnon abx , day 8 today . will stop . her dysuria and suprapubic pain are related to the procedure . 2- h/o DM II :SSI. will resume metformin at dc Ceftriaxone given in D5 is contributing to her hyperglycemia . 3- Acute diarrhea: need to r/o C diff - check c diff and stool cx - cont IVF 4-Chronic back pain: cont fentanyl and oxy Possible dc home tomorrow
--- NOTE | 2019-07-20 18:08 | PN ---
Physical Exam: SUBJECTIVE: Patient seen and examined. Pt had muliple episodes of diarrhea overnight OBJECTIVE: Vital Signs Period Temp Pulse Resp BP Sys/Thornton Pulse Ox Last 24 Hr 97.8 F-98.2 F 56-65 14-20 114-144/51-74 100-100 GENERAL: The patient is awake, alert, and fully oriented, in mild distress. HEAD: Normal with no signs of trauma. EYES: PERRL, extraocular movements intact, sclera anicteric, conjunctiva clear. No ptosis. LUNGS: Breath sounds equal, clear to auscultation bilaterally, no wheezes, no crackles, no accessory muscle use. HEART: Regular rate and rhythm, S1, S2 without murmur, rub or gallop. ABDOMEN: Soft, suprapubic tenderness, nondistended, normoactive bowel sounds, no guarding, no rebound, no hepatosplenomegaly, no masses. EXTREMITIES: 2+ pulses, warm, well-perfused, no edema. Laboratory Results - last 24 hr 07/19/19 07/19/19 07/20/19 14:26 21:12 00:24 WBC RBC Hgb Hct MCV MCH MCHC RDW Plt Count MPV Absolute Neuts (auto) Neutrophils % Lymphocytes % Monocytes % Eosinophils % Basophils % Nucleated RBC % Sodium Potassium Chloride Carbon Dioxide Anion Gap BUN Creatinine Est GFR (CKD-EPI)AfAm Est GFR (CKD-EPI)NonAf POC Glucometer 168 343 309 Random Glucose Calcium Phosphorus Magnesium Total Bilirubin AST ALT Alkaline Phosphatase Total Protein Albumin 07/20/19 07/20/19 07/20/19 06:39 07:45 07:45 WBC 12.3 H RBC 3.79 Hgb 11.7 Hct 36.1 MCV 95.4 MCH 30.8 MCHC 32.3 RDW 12.9 Plt Count 309 MPV 8.7 Absolute Neuts (auto) 10.2 H Neutrophils % 83.4 H D Lymphocytes % 11.2 D Monocytes % 4.5 Eosinophils % 0.0 D Basophils % 0.9 Nucleated RBC % 0 Sodium 141 Potassium 4.2 Chloride 110 H Carbon Dioxide 22 Anion Gap 9 BUN 9.6 Creatinine 0.9 Est GFR (CKD-EPI)AfAm 82.26 Est GFR (CKD-EPI)NonAf 70.98 POC Glucometer 362 Random Glucose 361 H Calcium 8.9 Phosphorus 2.2 L Magnesium 1.9 Total Bilirubin 0.6 AST 13 L ALT 31 Alkaline Phosphatase 84 Total Protein 7.1 Albumin 3.2 L 07/20/19 07/20/19 11:28 16:14 WBC RBC Hgb Hct MCV MCH MCHC RDW Plt Count MPV Absolute Neuts (auto) Neutrophils % Lymphocytes % Monocytes % Eosinophils % Basophils % Nucleated RBC % Sodium Potassium Chloride Carbon Dioxide Anion Gap BUN Creatinine Est GFR (CKD-EPI)AfAm Est GFR (CKD-EPI)NonAf POC Glucometer 195 269 Random Glucose Calcium Phosphorus Magnesium Total Bilirubin AST ALT Alkaline Phosphatase Total Protein Albumin Active Medications Generic Name Dose Route Start Last Admin Trade Name Freq PRN Reason Stop Dose Admin Acetaminophen 1,000 mg 07/19/19 13:24 Ofirmev Injection - IVPB Q6H PRN PAIN LEVEL 6-10 Fentanyl 1 patch 07/20/19 10:00 07/20/19 10:09 Duragesic 50mcg Patch - TD 1 patch Q72H [facility] Administration Ceftriaxone Sodium 1 gm/ 50 mls @ 100 mls/hr 07/20/19 10:00 07/20/19 12:10 Dextrose IVPB 100 mls/hr DAILY [facility] Administration Protocol Sodium Chloride 1,000 mls @ 100 mls/hr 07/19/19 13:24 07/20/19 12:11 Normal Saline - IV 100 mls/hr ASDIR [facility] Administration Ibuprofen 400 mg 07/19/19 17:01 07/20/19 10:08 Motrin - PO 400 mg Q6H PRN Administration FEVER Insulin Aspart 1 vial 07/19/19 16:30 07/20/19 16:17 Novolog Vial Sliding Scale - SQ 4 units ACHS [facility] Administration Protocol Miscellaneous 1 each 07/19/19 13:24 07/20/19 10:15 Duragesic Patch Waste TD 1 each PRN PRN Administration PATCH REMOVAL Ondansetron HCl 4 mg 07/19/19 13:24 Zofran Injection IVPUSH Q6H PRN NAUSEA AND/OR VOMITING Oxycodone HCl 10 mg 07/19/19 20:14 07/20/19 15:09 Roxicodone - PO 10 mg Q6H PRN Administration PAIN LEVEL 6-10 Promethazine HCl 12.5 mg 07/19/19 12:58 07/19/19 12:55 Phenergan Injection - IVPUSH 6.25 mg Q6H PRN Administration NAUSEA-FOR RESCUE AFTER 15 MIN Tamsulosin HCl 0.4 mg 07/20/19 08:30 07/20/19 10:07 Flomax - PO 0.4 mg DAILY@0830 [facility] Administration ASSESSMENT/PLAN: 58 year old female with a past medical history of NIDDM, chronic lumbar spin pain s/p L4-S1 fusion, spinal stimulator, nephrolithasis s/p stenting admitted for flank pain likely secondary to complicated UTI vs continued pain from R renal stone. Flank Pain likely secondary to UTI vs R renal stone went to OR for lithotripsy and stent exchange POD1 D/C ceftriaxone pt had 5-6 diarrheal episode pain control with ibuprofen 400mg Q6h, fentanyl patch , oxy 10mg po Q6h Diarrhea c diff pending, stool culture DM based on home measurements needs tighter glucose control BGM ISS Back Pain chronic continue fentanyl patch FEN NS for fluids Monitor lytes Prophylaxis SCDs for possible intervention Code full code Visit type - Emergency Visit Emergency Visit: Yes ED Registration Date: 07/14/19 Care time: The patient presented to the Emergency Department on the above date and was hospitalized for further evaluation of their emergent condition. - New Patient This patient is new to me today: No - Critical Care Critical Care patient: No - Discharge Referral Referred to [facility] Med [facility].C.: No ATTENDING PHYSICIAN STATEMENT I saw and evaluated the patient. I reviewed the resident's note and discussed the case with the resident. I agree with the resident's findings and plan as documented. SUBJECTIVE: OBJECTIVE: ASSESSMENT AND PLAN:
[2019-07-21] MEDS: oxyCODONE HCL 5 MG TABLET PO PRN ×2 (04:15→10:22)
[2019-07-21] MEDS: INSULIN SLIDING SCALE (NOVOLOG) 1 VIAL SQ SCH ×4 (06:25→21:54)
[2019-07-21] MEDS: IBUPROFEN 400 MG TABLET (FP) PO PRN (06:26)
[2019-07-21 08:54] LABS: BASO % 0.5 % (0-2.0); EOS % 1.5 % (0-4.5); HEMATOCRIT 31.8 % (32.4-45.2); HEMOGLOBIN 10.5 GM/dL (10.7-15.3); LYMPH % 34.8 % (8-40); MCH 31.2 pg (25.7-33.7); MCHC 33.2 g/dl (32.0-36.0); MEAN CELL VOLUME 93.9 fl (80-96); MEAN PLT VOLUME 8.1 fl (7.5-11.1); MONO % 6.9 % (3.8-10.2); NEUT % 56.3 % (42.8-82.8); PLATELET COUNT 258 K/MM3 (134-434); RBC 3.38 M/mm3 (3.60-5.2); RDW 13.6 % (11.6-15.6); WHITE BLOOD COUNT 9.5 K/mm3 (4.0-10.0)
[2019-07-21 09:18] LABS: BLOOD UREA NITROGEN 9.6 mg/dL (7-18); CALCIUM 8.4 mg/dL (8.5-10.1); CREATININE 0.7 mg/dL (0.55-1.3); POTASSIUM 3.7 mmol/L (3.5-5.1)
[2019-07-21] MEDS: TAMSULOSIN HCL 0.4 MG CAP PO SCH (09:38)
[2019-07-21] MEDS ORDERED: INSULIN (NOVOLOG) ASPART 100 UNITS/ML 10ML VIAL ONE (12:25)
--- NOTE | 2019-07-21 16:35 | PN ---
Physical Exam: SUBJECTIVE: Patient seen and examined. Pt had 3 episodes of diarrhea overnight and complaints of headache. OBJECTIVE: Vital Signs Period Temp Pulse Resp BP Sys/Thornton Pulse Ox Last 24 Hr 97.9 F-97.9 F 56-70 20-20 117-126/57-60 100 GENERAL: The patient is awake, alert, and fully oriented, in mild distress. HEAD: Normal with no signs of trauma. EYES: PERRL, extraocular movements intact, sclera anicteric, conjunctiva clear. No ptosis. LUNGS: Breath sounds equal, clear to auscultation bilaterally, no wheezes, no crackles, no accessory muscle use. HEART: Regular rate and rhythm, S1, S2 without murmur, rub or gallop. ABDOMEN: Soft, suprapubic tenderness, nondistended, normoactive bowel sounds, no guarding, no rebound, no hepatosplenomegaly, no masses. EXTREMITIES: 2+ pulses, warm, well-perfused, no edema. Laboratory Results - last 24 hr 07/20/19 07/21/19 07/21/19 21:49 06:24 07:38 WBC 9.5 RBC 3.38 L Hgb 10.5 L Hct 31.8 L MCV 93.9 MCH 31.2 MCHC 33.2 RDW 13.6 Plt Count 258 MPV 8.1 Absolute Neuts (auto) 5.3 Neutrophils % 56.3 D Lymphocytes % 34.8 D Monocytes % 6.9 Eosinophils % 1.5 D Basophils % 0.5 Nucleated RBC % 0 Sodium Potassium Chloride Carbon Dioxide Anion Gap BUN Creatinine Est GFR (CKD-EPI)AfAm Est GFR (CKD-EPI)NonAf POC Glucometer 287 258 Random Glucose Calcium 07/21/19 07/21/19 07:38 12:16 WBC RBC Hgb Hct MCV MCH MCHC RDW Plt Count MPV Absolute Neuts (auto) Neutrophils % Lymphocytes % Monocytes % Eosinophils % Basophils % Nucleated RBC % Sodium 140 Potassium 3.7 Chloride 110 H Carbon Dioxide 24 Anion Gap 6 L BUN 9.6 Creatinine 0.7 Est GFR (CKD-EPI)AfAm 111.47 Est GFR (CKD-EPI)NonAf 96.18 POC Glucometer 211 Random Glucose 191 H Calcium 8.4 L Active Medications Generic Name Dose Route Start Last Admin Trade Name Freq PRN Reason Stop Dose Admin Acetaminophen 1,000 mg 07/19/19 13:24 Ofirmev Injection - IVPB Q6H PRN PAIN LEVEL 6-10 Fentanyl 1 patch 07/20/19 10:00 07/20/19 10:09 Duragesic 50mcg Patch - TD 1 patch Q72H [facility] Administration Sodium Chloride 1,000 mls @ 100 mls/hr 07/19/19 13:24 07/20/19 21:51 Normal Saline - IV 100 mls/hr ASDIR [facility] Administration Ibuprofen 400 mg 07/19/19 17:01 07/21/19 06:26 Motrin - PO 400 mg Q6H PRN Administration FEVER Insulin Aspart 1 vial 07/19/19 16:30 07/21/19 12:39 Novolog Vial Sliding Scale - SQ 2 units ACHS [facility] Administration Protocol Miscellaneous 1 each 07/19/19 13:24 07/20/19 10:15 Duragesic Patch Waste TD 1 each PRN PRN Administration PATCH REMOVAL Ondansetron HCl 4 mg 07/19/19 13:24 Zofran Injection IVPUSH Q6H PRN NAUSEA AND/OR VOMITING Oxycodone HCl 10 mg 07/19/19 20:14 07/21/19 04:15 Roxicodone - PO 10 mg Q6H PRN Administration PAIN LEVEL 6-10 Promethazine HCl 12.5 mg 07/19/19 12:58 07/19/19 12:55 Phenergan Injection - IVPUSH 6.25 mg Q6H PRN Administration NAUSEA-FOR RESCUE AFTER 15 MIN Tamsulosin HCl 0.4 mg 07/20/19 08:30 07/21/19 09:38 Flomax - PO 0.4 mg DAILY@0830 [facility] Administration Vancomycin HCl 125 mg 07/21/19 18:00 Vancomycin Oral Solution PO Q6HPO [facility] ASSESSMENT/PLAN: 58 year old female with a past medical history of NIDDM, chronic lumbar spin pain s/p L4-S1 fusion, spinal stimulator, nephrolithasis s/p stenting admitted for flank pain likely secondary to complicated UTI vs continued pain from R renal stone. Flank Pain went to OR for lithotripsy and stent exchange POD2 pain improved and patient has been passing stone fragments. will send for analysis pain control with ibuprofen 400mg Q6h, fentanyl patch , oxy 10mg po Q6h Diarrhea c diff positive for antigen but negative for toxin. Pt started on PO vanco 125mg PO Q6h for 10 days stool culture pending DM BGM ISS Back Pain chronic continue fentanyl patch FEN NS for fluids Monitor lytes Prophylaxis SCDs for possible intervention Code full code Visit type - Emergency Visit Emergency Visit: Yes ED Registration Date: 07/14/19 Care time: The patient presented to the Emergency Department on the above date and was hospitalized for further evaluation of their emergent condition. - New Patient This patient is new to me today: No - Critical Care Critical Care patient: No - Discharge Referral Referred to [facility] Med [facility].C[facility] No ATTENDING PHYSICIAN STATEMENT I saw and evaluated the patient. I reviewed the resident's note and discussed the case with the resident. I agree with the resident's findings and plan as documented. SUBJECTIVE: OBJECTIVE: ASSESSMENT AND PLAN:
--- NOTE | 2019-07-21 16:37 | PN ---
Progress Note, Physician History of Present Illness: S/P CYSTO/ LASER LITHOTRIPSY C/O LOOSE BMS C DIFF+ - Current Medication List Current Medications: Active Medications Acetaminophen (Ofirmev Injection -) 1,000 mg IVPB Q6H PRN PRN Reason: PAIN LEVEL 6-10 Fentanyl (Duragesic 50mcg Patch -) 1 patch TD Q72H [facility] Last Admin: 07/20/19 10:09 Dose: 1 patch Sodium Chloride (Normal Saline -) 1,000 mls @ 100 mls/hr IV ASDIR [facility] Last Admin: 07/20/19 21:51 Dose: 100 mls/hr Ibuprofen (Motrin -) 400 mg PO Q6H PRN PRN Reason: FEVER Last Admin: 07/21/19 06:26 Dose: 400 mg Insulin Aspart (Novolog Vial Sliding Scale -) 1 vial SQ [facility]; Protocol Last Admin: 07/21/19 12:39 Dose: 2 units Miscellaneous (Duragesic Patch Waste) 1 each TD PRN PRN PRN Reason: PATCH REMOVAL Last Admin: 07/20/19 10:15 Dose: 1 each Ondansetron HCl (Zofran Injection) 4 mg IVPUSH Q6H PRN PRN Reason: NAUSEA AND/OR VOMITING Oxycodone HCl (Roxicodone -) 10 mg PO Q6H PRN PRN Reason: PAIN LEVEL 6-10 Last Admin: 07/21/19 04:15 Dose: 10 mg Promethazine HCl (Phenergan Injection -) 12.5 mg IVPUSH Q6H PRN PRN Reason: NAUSEA-FOR RESCUE AFTER 15 MIN Last Admin: 07/19/19 12:55 Dose: 6.25 mg Tamsulosin HCl (Flomax -) 0.4 mg PO DAILY@0830 [facility] Last Admin: 07/21/19 09:38 Dose: 0.4 mg Vancomycin HCl (Vancomycin Oral Solution) 125 mg PO Q6HPO [facility] - Objective Vital Signs: Vital Signs Temperature 97.9 F 07/21/19 15:01 Pulse Rate 56 L 07/21/19 15:01 Respiratory Rate 20 07/21/19 15:01 Blood Pressure 126/57 L 07/21/19 15:01 O2 Sat by Pulse Oximetry (%) 100 07/20/19 21:00 Constitutional: Yes: No Distress, Obese Cardiovascular: Yes: Regular Rate and Rhythm, S1, S2 Respiratory: Yes: CTA Bilaterally Gastrointestinal: Yes: Soft, Abdomen, Obese Labs: CBC, BMP 07/21/19 07:38 07/21/19 07:38 INR, PTT INR 1.14 (0.83-1.09) H 07/19/19 06:20 Assessment/Plan NEPHROLITHIASIS/ S/P LASER LITHO R URETERAL STENT C DIFF CONTINUE VANCOMYCIN 125MG PO Q6H X 10DAYS
--- NOTE | 2019-07-21 16:51 | PN ---
Teaching Attending Note Name of Resident: Soraya Bentley ATTENDING PHYSICIAN STATEMENT I saw and evaluated the patient. I reviewed the resident's note and discussed the case with the resident. I agree with the resident's findings and plan as documented. SUBJECTIVE: no fever or chills. No ORTIZ . cont to have mild suprapubic pain, no hematuria , passes 2 small stones today . no N/V. flank pain has improved 3 BMs today and 3 yesterday OBJECTIVE: NAD HEENT: MMM CV: RRR, no MRG Lungs: CTAB ABd: soft, minimal suprapubic tenderness, ND, NL BS. Ext: No edema or erythema. ASSESSMENT AND PLAN: 58 y/o lady with remote h/o DM II, chronic back pain, CCY, L spine fusion, and recent UTI with stent placement , who presented with R flank pain 1-R flank pain. s/p lithotripsy and stent removal - cont IVF - cont fentanyl and oxy - cont flomax - off abx . - will send stones for analysis 2- Diarrhea, C diff Ag + with toxin neg, will treat for c diff colitis given diarrhea. start vanco po q 6 hr cont IVF 3- H/o DM II :SSI. will resume metformin at dc 4-Chronic back pain: cont fentanyl and oxy Possible dc home tomorrow , pending improvement in diarrhea
[2019-07-21] MEDS: SODIUM CHLORIDE 1,000 ML IV SCH (17:23)
[2019-07-21] MEDS ORDERED: VANCOMYCIN 250 MG/5 ML ORAL SOLUTION PO SCH (18:00)
[2019-07-21] MEDS: VANCOMYCIN 250 MG/5 ML ORAL SOLUTION PO SCH (18:14)
[2019-07-22] MEDS: VANCOMYCIN 250 MG/5 ML ORAL SOLUTION PO SCH ×4 (00:15→17:12)
[2019-07-22] MEDS: oxyCODONE HCL 5 MG TABLET PO PRN ×3 (00:24→22:52)
[2019-07-22] MEDS: INSULIN SLIDING SCALE (NOVOLOG) 1 VIAL SQ SCH ×4 (06:25→22:57)
[2019-07-22] MEDS: TAMSULOSIN HCL 0.4 MG CAP PO SCH (09:27)
--- NOTE | 2019-07-22 09:54 | PN ---
Physical Exam: SUBJECTIVE: Patient seen and examined. Pt had 3 diarrheal episodes overnight OBJECTIVE: Vital Signs Period Temp Pulse Resp BP Sys/Thornton Pulse Ox Last 24 Hr 97.9 F-98.3 F 56-68 20-20 126-133/57-71 100 GENERAL: The patient is awake, alert, and fully oriented, in mild distress. HEAD: Normal with no signs of trauma. ENT: oropharynx clear without exudates, moist mucous membranes. LUNGS: Breath sounds equal, clear to auscultation bilaterally, no wheezes, no crackles, no accessory muscle use. HEART: Regular rate and rhythm, S1, S2 without murmur, rub or gallop. ABDOMEN: Soft, nontender, nondistended, normoactive bowel sounds, no guarding, no rebound, no hepatosplenomegaly, no masses. EXTREMITIES: 2+ pulses, warm, well-perfused, no edema. Laboratory Results - last 24 hr 07/21/19 07/21/19 07/21/19 12:16 17:20 21:52 POC Glucometer 211 224 254 07/22/19 06:10 POC Glucometer 161 Active Medications Generic Name Dose Route Start Last Admin Trade Name Freq PRN Reason Stop Dose Admin Acetaminophen 1,000 mg 07/19/19 13:24 Ofirmev Injection - IVPB Q6H PRN PAIN LEVEL 6-10 Fentanyl 1 patch 07/20/19 10:00 07/20/19 10:09 Duragesic 50mcg Patch - TD 1 patch Q72H EDUARDO Administration Sodium Chloride 1,000 mls @ 100 mls/hr 07/19/19 13:24 07/21/19 17:23 Normal Saline - IV Not Given ASDIR EDUARDO Ibuprofen 400 mg 07/19/19 17:01 07/21/19 06:26 Motrin - PO 400 mg Q6H PRN Administration FEVER Insulin Aspart 1 vial 07/19/19 16:30 07/22/19 06:25 Novolog Vial Sliding Scale - SQ Not Given ACHS [facility] Protocol Miscellaneous 1 each 07/19/19 13:24 07/20/19 10:15 Duragesic Patch Waste TD 1 each PRN PRN Administration PATCH REMOVAL Ondansetron HCl 4 mg 07/19/19 13:24 Zofran Injection IVPUSH Q6H PRN NAUSEA AND/OR VOMITING Oxycodone HCl 10 mg 07/19/19 20:14 07/22/19 09:32 Roxicodone - PO 10 mg Q6H PRN Administration PAIN LEVEL 6-10 Promethazine HCl 12.5 mg 07/19/19 12:58 07/19/19 12:55 Phenergan Injection - IVPUSH 6.25 mg Q6H PRN Administration NAUSEA-FOR RESCUE AFTER 15 MIN Tamsulosin HCl 0.4 mg 07/20/19 08:30 07/22/19 09:27 Flomax - PO 0.4 mg DAILY@0830 EDUARDO Administration Vancomycin HCl 125 mg 07/21/19 18:00 07/22/19 05:37 Vancomycin Oral Solution PO 125 mg Q6HPO EDUARDO Administration ASSESSMENT/PLAN: 58 year old female with a past medical history of NIDDM, chronic lumbar spin pain s/p L4-S1 fusion, spinal stimulator, nephrolithasis s/p stenting admitted for flank pain likely secondary to complicated UTI vs continued pain from R renal stone. Flank Pain went to OR for lithotripsy and stent exchange POD3 pain improved and patient has been passing stone fragments. will send for analysis pain control with ibuprofen 400mg Q6h, fentanyl patch , oxy 10mg po Q6h D/C abx Diarrhea c diff positive for antigen but negative for toxin. Pt started on PO vanco 125mg PO Q6h for 10 days crrently on day 2 stool culture pending DM BGM ISS Back Pain chronic continue fentanyl patch FEN NS for fluids Monitor lytes Prophylaxis SCDs for possible intervention Code full code Visit type - Emergency Visit Emergency Visit: Yes ED Registration Date: 07/14/19 Care time: The patient presented to the Emergency Department on the above date and was hospitalized for further evaluation of their emergent condition. - New Patient This patient is new to me today: No - Critical Care Critical Care patient: No - Discharge Referral Referred to [facility] Med P.C.: No ATTENDING PHYSICIAN STATEMENT I saw and evaluated the patient. I reviewed the resident's note and discussed the case with the resident. I agree with the resident's findings and plan as documented. SUBJECTIVE: OBJECTIVE: ASSESSMENT AND PLAN:
[2019-07-22] MEDS ORDERED: PT OWN MED DRAWER 7, Y5N ONE ×2 (11:54→17:07)
[2019-07-22] MEDS ORDERED: INSULIN (NOVOLOG) ASPART 100 UNITS/ML 10ML VIAL ONE (11:55)
--- NOTE | 2019-07-22 12:31 | PN ---
Teaching Attending Note Name of Resident: Deepthi Jay ATTENDING PHYSICIAN STATEMENT I saw and evaluated the patient. I reviewed the resident's note and discussed the case with the resident. I agree with the resident's findings and plan as documented. SUBJECTIVE: 3 episodes of diarrhea last night . 2 this am. abd pain in lower abdomen continues. No N/V OBJECTIVE: NAD. HEENT: MMM CV: RRR, no MRG Lungs: CTAB ABd: soft, minimal suprapubic tenderness, TTP in LLQ, ND, NL BS. Ext: edema on LE. ASSESSMENT AND PLAN: 58 y/o lady with remote h/o DM II, chronic back pain, CCY, L spine fusion, and recent UTI with stent placement , who presented with R flank pain 1-R flank pain. s/p lithotripsy and stent removal - cont fentanyl and oxy. - cont flomax. - off abx. - stones for analysis. 2- C-diff colitis. - cont PO vanco -decrease IVF due to edema 3- H/o DM II :SSI. will resume metformin at dc 4-Chronic back pain: cont fentanyl and oxy Dc depends on improvement in her diarrhea
[2019-07-22] MEDS ORDERED: SODIUM CHLORIDE 1,000 ML IV SCH (12:32)
[2019-07-22] MEDS: SODIUM CHLORIDE 1,000 ML IV SCH (13:00)
[2019-07-22] MEDS: IBUPROFEN 400 MG TABLET (FP) PO PRN ×2 (13:44→19:46)
[2019-07-23] MEDS ORDERED: PT OWN MED DRAWER 7, Y5N ONE (00:12)
[2019-07-23] MEDS: VANCOMYCIN 250 MG/5 ML ORAL SOLUTION PO SCH ×5 (00:31→23:56)
[2019-07-23] MEDS: oxyCODONE HCL 5 MG TABLET PO PRN ×3 (05:16→22:08)
[2019-07-23] MEDS: INSULIN SLIDING SCALE (NOVOLOG) 1 VIAL SQ SCH ×4 (06:43→22:11)
[2019-07-23 06:45] LABS: BASO % 0.7 % (0-2.0); EOS % 3.7 % (0-4.5); HEMATOCRIT 34.5 % (32.4-45.2); HEMOGLOBIN 11.2 GM/dL (10.7-15.3); MCH 30.9 pg (25.7-33.7); MCHC 32.4 g/dl (32.0-36.0); MEAN CELL VOLUME 95.5 fl (80-96); MEAN PLT VOLUME 8.2 fl (7.5-11.1); MONO % 7.6 % (3.8-10.2); PLATELET COUNT 263 K/MM3 (134-434); RBC 3.62 M/mm3 (3.60-5.2); RDW 13.2 % (11.6-15.6); WHITE BLOOD COUNT 8.2 K/mm3 (4.0-10.0)
[2019-07-23 07:12] LABS: BLOOD UREA NITROGEN 11.9 mg/dL (7-18); CALCIUM 8.5 mg/dL (8.5-10.1); CREATININE 0.7 mg/dL (0.55-1.3); POTASSIUM 3.8 mmol/L (3.5-5.1)
[2019-07-23] MEDS: TAMSULOSIN HCL 0.4 MG CAP PO SCH (09:06)
[2019-07-23] MEDS: fentaNYL 50mcg/hr PATCH.TD72 TD SCH (09:06)
[2019-07-23] MEDS: SODIUM CHLORIDE 1,000 ML IV SCH ×2 (09:08→13:13)
[2019-07-23] MEDS: FENTANYL PATCH WASTE TD PRN (09:36)
[2019-07-23] MEDS: IBUPROFEN 400 MG TABLET (FP) PO PRN (09:42)
--- NOTE | 2019-07-23 14:55 | PN ---
Progress Note (short form) - Note Progress Note: Subjective: cont to have diarrhea . 7 BMs since MN. abd pain in lower abd Objective: Vital Signs: Last Vital Signs Temp Pulse Resp BP Pulse Ox 98.2 F 63 20 126/71 100 07/23/19 13:30 07/23/19 13:30 07/23/19 13:30 07/23/19 13:30 07/22/19 21:00 Laboratory Results - last 24 hr 07/22/19 07/22/19 07/23/19 16:53 22:55 06:22 WBC 8.2 RBC 3.62 Hgb 11.2 Hct 34.5 MCV 95.5 MCH 30.9 MCHC 32.4 RDW 13.2 Plt Count 263 MPV 8.2 Absolute Neuts (auto) 4.0 Neutrophils % 49.0 Lymphocytes % 39.0 Monocytes % 7.6 Eosinophils % 3.7 D Basophils % 0.7 Nucleated RBC % 0 Sodium Potassium Chloride Carbon Dioxide Anion Gap BUN Creatinine Est GFR (CKD-EPI)AfAm Est GFR (CKD-EPI)NonAf POC Glucometer 230 248 Random Glucose Calcium 07/23/19 07/23/19 06:22 11:47 WBC RBC Hgb Hct MCV MCH MCHC RDW Plt Count MPV Absolute Neuts (auto) Neutrophils % Lymphocytes % Monocytes % Eosinophils % Basophils % Nucleated RBC % Sodium 142 Potassium 3.8 Chloride 109 H Carbon Dioxide 26 Anion Gap 8 BUN 11.9 Creatinine 0.7 Est GFR (CKD-EPI)AfAm 111.47 Est GFR (CKD-EPI)NonAf 96.18 POC Glucometer 208 Random Glucose 265 H Calcium 8.5 Physical Exam: NAD. HEENT: MMM CV: RRR, no MRG Lungs: CTAB ABd: soft, minimal suprapubic tenderness, TTP in suprapubic tenderness Ext: 1+ edema on LE. ASSESSMENT AND PLAN: 58 y/o lady with remote h/o DM II, chronic back pain, CCY, L spine fusion, and recent UTI with stent placement , who presented with R flank pain 1-R flank pain. s/p lithotripsy and stent removal - cont fentanyl and oxy. - cont flomax. - off abx. - stones for analysis. 2- C-diff colitis. - cont PO vanco -cont low dose IVF 3- H/o DM II :SSI. will resume metformin at dc. 4-Chronic back pain: cont fentanyl and oxy Dc depends on improvement in her diarrhea Visit type - Emergency Visit Emergency Visit: Yes ED Registration Date: 07/14/19 Care time: The patient presented to the Emergency Department on the above date and was hospitalized for further evaluation of their emergent condition. - New Patient This patient is new to me today: No - Critical Care Critical Care patient: No
[2019-07-24] MEDS: SODIUM CHLORIDE 1,000 ML IV SCH ×2 (04:12→13:35)
[2019-07-24] MEDS: VANCOMYCIN 250 MG/5 ML ORAL SOLUTION PO SCH ×2 (06:22→11:50)
[2019-07-24] MEDS: oxyCODONE HCL 5 MG TABLET PO PRN (06:23)
[2019-07-24] MEDS: INSULIN SLIDING SCALE (NOVOLOG) 1 VIAL SQ SCH ×3 (06:24→17:11)
[2019-07-24] MEDS: TAMSULOSIN HCL 0.4 MG CAP PO SCH (09:10)
[2019-07-24] MEDS ORDERED: INSULIN (NOVOLOG) ASPART 100 UNITS/ML 10ML VIAL ONE (11:08)
[2019-07-24] MEDS ORDERED: PT OWN MED DRAWER 7, Y5N ONE (11:47)
[2019-07-24] MEDS: IBUPROFEN 400 MG TABLET (FP) PO PRN (13:34)
[2019-07-24 14:45] VITALS: BP 121/80; PULSE 86; TEMP 97.8
--- NOTE | 2019-07-24 15:01 | PN ---
Teaching Attending Note Name of Resident: Sol Jay ATTENDING PHYSICIAN STATEMENT I saw and evaluated the patient. I reviewed the resident's note and discussed the case with the resident. I agree with the resident's findings and plan as documented. SUBJECTIVE: No fever or chills. 6 BMs but small and not watery. abd pain did not change and not severe. No N/V. small amount of blood in stool OBJECTIVE: NAD. HEENT: MMM CV: RRR, no MRG Lungs: CTAB ABd: soft, minimal suprapubic tenderness. Ext: 1+ edema on LE. ASSESSMENT AND PLAN: 58 y/o lady with remote h/o DM II, chronic back pain, CCY, L spine fusion, and recent UTI with stent placement , who presented with R flank pain 1-R flank pain. s/p lithotripsy and stent removal - cont fentanyl and oxy. - cont flomax. - off abx. 2- C-diff colitis. diarrhea improved - cont PO vanco x 7 more days to complete 10 days -dc IVF 3- H/o DM II:resume metformin at dc. 4-Chronic back pain: cont fentanyl and oxy Dc home today . continue oral hydration .
--- NOTE | 2019-07-24 19:25 | DS ---
Physical Exam: SUBJECTIVE: Patient seen and examined. Pt had a few more bowel movement but they are more solid in consistency.otherwise no flank pain or fever or abdominal pain. OBJECTIVE: Vital Signs Period Temp Pulse Resp BP Sys/Thornton Pulse Ox Last 24 Hr 97.8 F-98.5 F 68-86 19-20 118-125/63-80 98-98 PHYSICAL EXAM GENERAL: The patient is awake, alert, and fully oriented, in mild distress. HEAD: Normal with no signs of trauma. ENT: oropharynx clear without exudates, moist mucous membranes. LUNGS: Breath sounds equal, clear to auscultation bilaterally, no wheezes, no crackles, no accessory muscle use. HEART: Regular rate and rhythm, S1, S2 without murmur, rub or gallop. ABDOMEN: Soft, nontender, nondistended, normoactive bowel sounds, no guarding, no rebound, no hepatosplenomegaly, no masses. EXTREMITIES: 2+ pulses, warm, well-perfused, trace edema. LABS Laboratory Results - last 24 hr 07/23/19 07/24/19 07/24/19 22:11 05:54 11:20 POC Glucometer 290 242 199 07/24/19 17:[address] abdomen 07/13/19 Interval insertion of right double pigtail catheter with appropriate locations of both proximal and the distal pigtails. 10 mm previously obstructing stone now in right collecting system. Small left renal calculus. Other findings as above. CXR 07/14/19 No acute chest pathology. No significant change. Spinal stimulator device. CT abdo 07/16/19 Double-J stent within the right collecting system with a pelvic stone as discussed above. No hydronephrosis present. Left nonobstructing nephrolithiasis. HOSPITAL COURSE: Date of Admission:07/14/19 58 year old female with a past medical history of NIDDM, chronic lumbar spin pain s/p L4-S1 fusion, spinal stimulator, nephrolithasis s/p stenting admitted for flank pain likely secondary to complicated UTI vs continued pain from R renal stone. UA was found to have3+ protein, 3+ blood, 2+ LE, 40 WBC, 2175 RBC, 2.0 bacteria. Abd/pelvis CT revealed R pelvic stent in place, 1cm stone in the R collecting system, 2mm non-obstructing stone in the left ureter. WBC was found to be elevated to 11.0.Uro was consulted and agreed to take patient to OR for stent removal and lithotripsy. When patient passed stones, they were sent for analysis with pending results.Pt was treated with antibiotics (rocephin and zosyn then rocephin only as per ID recommendations).Blood and urine cultures were negative except for admitting culture which was positive for corynebacterium. At that point Antibiotics were discontinued. However, Pt developed diarrhea and was found positive for C diff antigen but not toxin. considering symptoms, pt started pm PO vanco and as symptoms improved and stool solidified, pt was discharged with 7 more days of PO vanco to continue treatment. Date of Discharge: 07/24/19 Minutes to complete discharge: 35 Discharge Summary Reason For Visit: URINARY TRACT INFECTION,STATUS POST PLACEMENT Condition: Improved - Instructions Diet, Activity, Other Instructions: You have been treated for flank pain and your stent was removed. You were also treated for C diff colitis Medications: Please resume all of your home medications. You can take Ibuprofen 400mg up of every 8 hours with food as needed You were also found to have an infection in your stool, called C diff for which you will need to take Vancomycin 125mg every 6 hours for 7 days (07/25-07/31) Follow up: Please follow up with your urologist Dr Moya within one week. Please follow up with Dr. Lebron within one week If you begin to experience worsening flank pain, difficulty urinating, bleeding , fevers, chest pain, shortness of breath please return to the Emergency Room immediately. stay hydrated Referrals: Robert Lebron [Primary Care Provider] - 1 Week Sal Moya MD [Staff Physician] - 1 Week Disposition: HOME - Home Medications Comprehensive Discharge Medication List: Ambulatory Orders Oxycodone HCl/Acetaminophen [Oxycodone-Acetaminophen 10-325] 1 each PO Q6H PRN 07/06/19 Fentanyl 50 mcg TD Q72H 07/07/19 Metformin HCl [Glucophage] 500 mg PO BID #30 tablet 07/08/19 Tamsulosin HCl [Flomax] 0.4 mg PO DAILY #14 capsule 07/08/19 Ibuprofen 400 mg PO Q8H #20 tablet 07/19/19 Vancomycin HCl 125 mg PO Q6H #30 capsule 07/24/19 Problem List - Problems (1) C. difficile colitis Code(s): A04.72 - ENTEROCOLITIS D/T CLOSTRIDIUM DIFFICILE, NOT SPCF RECUR (2) Encounter for removal of ureteral stent Code(s): Z46.6 - ENCOUNTER FOR FITTING AND ADJUSTMENT OF URINARY DEVICE (3) Nephrolithiasis Code(s): N20.0 - CALCULUS OF KIDNEY (4) Hematuria Code(s): R31.9 - HEMATURIA, UNSPECIFIED (5) UTI (urinary tract infection) Code(s): N39.0 - URINARY TRACT INFECTION, SITE NOT SPECIFIED This patient is new to me today: No Emergency Visit: Yes ED Registration Date: 07/14/19 Care time: The patient presented to the Emergency Department on the above date and was hospitalized for further evaluation of their emergent condition. Critical Care patient: No - Discharge Referral Referred to [facility] Med P.C.: No ATTENDING PHYSICIAN STATEMENT I saw and evaluated the patient. I reviewed the resident's note and discussed the case with the resident. I agree with the resident's findings and plan as documented. SUBJECTIVE: OBJECTIVE: ASSESSMENT AND PLAN:
[2019-07-29 13:09] LABS: CA OXALATE MONOHYDR. 80 % (.); CALCIUM PHOSPHATE 10 % (.)
== END 2019-07-24 17:51 | disposition home or self-care (01) | DRG 660 ==
LOC: JER 21:02 → JERBED 07-14 00:39 → J6S 07-14 15:19
PROVIDERS: ADMIT Internal Medicine; ATTEND Internal Medicine
PROC: 0TC08ZZ Extirpation of Matter from Right Kidney, Via Natural or Artificial Opening Endoscopic (ICD-10-PCS; principal; 2019-07-19 11:00)
PROC: 0TP98DZ Removal of Intraluminal Device from Ureter, Via Natural or Artificial Opening Endoscopic (ICD-10-PCS; 2019-07-19 11:00)
DX: N20.0 Calculus of kidney (principal); N39.0 Urinary tract infection, site not specified; E87.3 Alkalosis; A04.72 Enterocolitis due to Clostridium difficile, not specified as recurrent; Z68.42 Body mass index [BMI] 45.0-49.9, adult; R33.8 Other retention of urine; E11.9 Type 2 diabetes mellitus without complications; E66.9 Obesity, unspecified; R31.9 Hematuria, unspecified; Z79.84 Long term (current) use of oral hypoglycemic drugs
CPT/HCPCS: 36415; 71045-TC-FY; 74176-TC; 76000-TC-FY; 80048; 80053; 81003; 82009; 82360; 82803; 82962; 83605; 83690; 83735; 84100; 85025; 85027; 85610; 85730; 86850; 86900; 86901; 87040; 87086; 87324; 87449; 93005; 93010; 94760; 99284-25; J0131; J7030

== ENCOUNTER 2021-02-21 08:08 | Emergency (ER) | payer OTHER ==
[2021-02-21 08:15] VITALS: BP 136/84; PULSE 80; TEMP 97.8; BMI 38.4
[2021-02-21] MEDS ORDERED: KETOROLAC TROMETHAMINE 60 MG/2 ML VIAL ONE (08:38)
[2021-02-21] MEDS ORDERED: KETOROLAC TROMETHAMINE 60 MG/2 ML VIAL IM ONE (08:38)
== END 2021-02-21 09:55 | disposition home or self-care (01) ==
LOC: JERFT 08:08
PROC: 3E0233Z Introduction of Anti-inflammatory into Muscle, Percutaneous Approach (ICD-10-PCS; principal; 2021-02-21)
DX: S20.229A Contusion of unspecified back wall of thorax, initial encounter (principal)
CPT/HCPCS: 72050-TC-FY; 72070-TC-FY; 99284-25

== ENCOUNTER 2021-02-26 03:23 | Emergency (ER) | payer OTHER ==
[2021-02-26 03:44] VITALS: BP 132/79; PULSE 72; TEMP 98.9; BMI 84.6
[2021-02-26] MEDS ORDERED: ACETAMINOPHEN 500 MG TABLET (FP) PO ONE (04:38)
[2021-02-26] MEDS ORDERED: ACETAMINOPHEN 325 MG TABLET (FP) ONE (04:50)
[2021-02-26] MEDS ORDERED: KETOROLAC TROMETHAMINE 30 MG/1 ML VIAL IM ONE (06:01)
[2021-02-26] MEDS ORDERED: KETOROLAC TROMETHAMINE 60 MG/2 ML VIAL ONE (06:03)
== END 2021-02-26 06:58 | disposition home or self-care (01) ==
LOC: JER 03:23
PROC: 3E0233Z Introduction of Anti-inflammatory into Muscle, Percutaneous Approach (ICD-10-PCS; principal; 2021-02-26)
DX: M54.2 Cervicalgia (principal); M54.9 Dorsalgia, unspecified
CPT/HCPCS: 70450-TC; 72125-TC; 72128-TC; 72131-TC; 73060-TC-RT-FY; 73070-TC-RT-FY; 73562-TC-LT-FY; 73562-TC-RT-FY; 93005; 93010; 99285-25

== ENCOUNTER 2021-02-26 17:21 | Emergency (ER) | payer OTHER ==
[2021-02-26 17:36] VITALS: TEMP 98.2; BMI 38.4
[2021-02-26] MEDS ORDERED: ACETAMINOPHEN 325 MG TABLET (FP) PO ONE (19:26)
[2021-02-26] MEDS ORDERED: ACETAMINOPHEN 325 MG TABLET (FP) ONE (19:39)
[2021-02-26] MEDS ORDERED: LIDOCAINE 5% TOPICAL PATCH TP ONE (20:24)
[2021-02-26] MEDS ORDERED: LIDOCAINE 5% TOPICAL PATCH ONE (20:29)
[2021-02-26 23:18] VITALS: BP 133/62; PULSE 78
[2021-02-27] MEDS ORDERED: LIDOCAINE PATCH REMOVAL MC SCH (08:30)
== END 2021-02-26 23:19 | disposition home or self-care (01) ==
LOC: JER 17:21
PROC: 3E023NZ Introduction of Analgesics, Hypnotics, Sedatives into Muscle, Percutaneous Approach (ICD-10-PCS; principal; 2021-02-26)
DX: M54.2 Cervicalgia (principal); M54.9 Dorsalgia, unspecified; G89.29 Other chronic pain
CPT/HCPCS: 70450-TC; 72125-TC; 73060-TC-RT-FY; 73070-TC-RT-FY; 73562-TC-LT-FY; 73562-TC-RT-FY; 99285-25

== ENCOUNTER 2021-03-14 04:06 | Day surgery (SDC) | payer OTHER ==
[2021-03-10 15:56] VITALS: BMI 38.4
[2021-03-14 13:21] LABS: INR 1.05 (0.83-1.09); PROTHROMBIN TIME (PATIENT) 12.9 SEC (9.7-13.0)
[2021-03-14] MEDS ORDERED: PROPOFOL 20 ML ONE ×2 (15:36→16:49)
[2021-03-14] MEDS ORDERED: MIDAZOLAM HCL 2 MG/2 ML SINGLE DOSE VIAL ONE (15:36)
[2021-03-14] MEDS ORDERED: LIDOCAINE HCL 1% EPINEPHRINE 1:200,000 30 ML VIAL (PF) ONE (15:40)
[2021-03-14] MEDS ORDERED: LIDOCAINE 1%/EPI 1:100000 (50 ML MULTI DOSE VIAL) ONE (15:41)
[2021-03-14] MEDS ORDERED: GENTAMICIN SO4 80 MG/2 ML VIAL ONE (15:50)
[2021-03-14] MEDS ORDERED: SODIUM CHLORIDE 0.9% P/F 10 ML VIAL IJ ONE (15:55)
[2021-03-14] MEDS ORDERED: ceFAZolin SODIUM 1 GM VIAL ONE (16:29)
[2021-03-14] MEDS ORDERED: ceFAZolin SODIUM 1 GM VIAL IVPB ONE (16:34)
[2021-03-14] MEDS ORDERED: ONDANSETRON 4 MG/2 ML VIAL IVPUSH PRN (17:32)
[2021-03-14] MEDS ORDERED: PROMETHAZINE HCL 25 MG/1 ML VIAL IVPUSH PRN (17:32)
[2021-03-14] MEDS ORDERED: oxyCODONE HCL 5 MG TABLET PO PRN (17:32)
[2021-03-14 17:45] VITALS: TEMP 97.9
[2021-03-14 19:08] VITALS: BP 150/80; PULSE 81
== END 2021-03-14 18:30 | disposition home or self-care (01) ==
LOC: JASUSAT 04:06
PROVIDERS: ATTEND Neurological Surgery
PROC: 0JWT0MZ Revision of Stimulator Generator in Trunk Subcutaneous Tissue and Fascia, Open Approach (ICD-10-PCS; principal; 2021-03-14 13:30)
DX: Z45.49 Encounter for adjustment and management of other implanted nervous system device (principal); G89.4 Chronic pain syndrome; E11.9 Type 2 diabetes mellitus without complications; E66.01 Morbid (severe) obesity due to excess calories
CPT/HCPCS: 63685; L8679; 36415; 82962; 85610; 88300-TC; 94760

== ENCOUNTER 2024-12-14 17:29 | Emergency (ER) | payer OTHER ==
[2024-12-14 17:40] VITALS: BP 125/58; PULSE 81; RESP 18; TEMP 97.5; BMI 36.6
[2024-12-14] MEDS ORDERED: ACETAMINOPHEN 500 MG TABLET (FP) ONE (18:15)
[2024-12-14] MEDS ORDERED: IBUPROFEN 600 MG TABLET (FP) PO ONE (18:15)
[2024-12-14] MEDS ORDERED: METHOCARBAMOL 500 MG TABLET ONE (18:15)
[2024-12-14] MEDS: IBUPROFEN 600 MG TABLET (FP) PO ONE (18:17)
[2024-12-14] MEDS: ACETAMINOPHEN 500 MG TABLET (FP) PO ONE (18:19)
[2024-12-14] MEDS: METHOCARBAMOL 500 MG TABLET PO ONE (18:19)
== END 2024-12-14 19:28 | disposition home or self-care (01) ==
LOC: JERFT 17:29
DX: M54.6 Pain in thoracic spine (principal); V89.2XXA Person injured in unspecified motor-vehicle accident, traffic, initial encounter
CPT/HCPCS: 72050-TC-FY; 72100-TC-FY; 99284-25